=== PATIENT | female | born 1970 | race Caucasian/White ===

== ENCOUNTER 2017-07-28 10:19 | Inpatient (IN) ==
[2017-07-28 10:12] LABS: Basophils % 0.2 % (0.0-0.8); Eosinophils # 0.1 10*3/uL (0.0-0.87); Eosinophils % 1.4 % (0.00-10.9); Hematocrit 31.3 VOL% (35.7-47.0); Hemoglobin 10.8 GM/DL (12.0-16.0); Immature Granulocytes % 0.5 %; Immature Granulocytes Absolute 0.03 #; Lymphocytes # 1.8 10*3/uL (1.4-4.0); Lymphocytes % 26.4 % (21.3-54.2); Mean Corpuscular HGB Conc 34.5 GM/DL (32-36); Mean Corpuscular Hemoglobin 31 PG (27-34); Mean Corpuscular Volume 88.4 FL (87-102); Mean Platelet Volume 12.1 FL (9.6-12.0); Monocytes # 0.3 10*3/uL (0.11-0.8); Monocytes % 3.8 % (1.7-12.7); Neutrophils # 4.5 10*3/uL (1.4-7.4); Neutrophils % 67.7 % (38.7-73.9); Platelet Count 128 T/CUMM (130-400); Red Blood Count 3.54 MC/CUMM (3.8-5.5); Red Cell Distribution Width 13.5 % (9.3-17.3); White Blood Count 6.6 T/CUMM (4-12)
[~2017-07-28 10:19] MED LIST: ASPIRIN 325 MG TABLET PO ONE; DIAZEPAM 5 MG TABLET PO ONE; diphenhydrAMINE CAP 25 MG CAPSULE PO ONE
[2017-07-28 10:39] LABS: Calcium 9.3 MG/DL (8.5-10.1); Osmolality,Calculated 276.2 MOS/KG (273-304)
[2017-07-28] MEDS ORDERED: HEPARIN/NACL 0.9% 2 UNITS/ML 1,000 ML IV ONE ×2 (12:55→13:57)
[2017-07-28] MEDS ORDERED: LIDOCAINE 1% 20 ML VIAL ONE ×2 (12:55→13:57)
[2017-07-28] MEDS ORDERED: DIAZEPAM 5 MG TABLET ONE (13:01)
[2017-07-28] MEDS ORDERED: diphenhydrAMINE CAP 25 MG CAPSULE ONE (13:01)
[2017-07-28] MEDS ORDERED: ASPIRIN 325 MG TABLET ONE (13:02)
--- NOTE | 2017-07-28 13:12 | History and Physical Update ---
Sedation H&P Update - History and Physical H&P was reviewed, the patient examined and there: are no changes in the patients condition since last H&P was completed. - Dictation Physical: refer to H&P completed by admitting physician - Physical Exam Mental Status: alert and oriented Heart: regular rate and rhythm Lung: clear to auscultation Abdomen: within normal limits Vitals: within normal limits - Sedation Plan for Sedation: moderate Patient Consent: Procedure disscussed with patient and patinet has consented., Risks and benefits were discussed with patient,including infection,, bleeding, injury to surrounding structures, seizure, temporary nerve, Patient understands and accepts potential risks/benefits and agrees to, proceed. ASA Class: II Airway Assessment: Class II: Soft palate, uvula, fauces visible
[2017-07-28] MEDS ORDERED: HYDROmorphone 2 MG/1 ML VIAL ONE (13:59)
[2017-07-28] MEDS ORDERED: MIDAZOLAM 2 MG/2 ML VIAL ONE (13:59)
[2017-07-28] MEDS: NITROGLYCERIN DRIP 50 MG/250 ML BOTTLE IV SCH (14:32)
[2017-07-28] MEDS ORDERED: NITROGLYCERIN DRIP 50 MG/250 ML BOTTLE IV ONE (15:04)
[2017-07-28] MEDS: SODIUM CHLORIDE 0.45% 1,000 ML IV SCH ×2 (15:10→20:33)
--- NOTE | 2017-07-28 15:24 | Cardiac Catheterization ---
Date of Procedure:: 07/28/17 Pre-op Diagnosis: Chest pain severe CAD Post-op diagnosis: same Procedure: Cardiac cath position procedure note #1 left heart catheterization #2 selective coronary angiography #3 left ventriculography #4 vein graft angiography #5 GUARDADO angiography Omnipaque was used for procedure Description of procedure Following sterile preparation draping of the right groin, local anesthesia was achieved by infiltration 1% Xylocaine. Using a Cook needle the right femoral artery was cannulated and a #6 sheath was inserted. A 6 Tunisian pigtail catheter was advanced retrograde across the valve into the left ventricle and the end-diastolic pressure was recorded. Left ventriculography was performed in the BRAUN projection using 24 cc of contrast. A pullback was made across phytic valve. The pigtail catheter change for a 6 Tunisian left Batsheva catheter and the left main was cannulated carefully and angiography was performed in limited views. The catheter change for a 6 Tunisian right Amplatz catheter right coronary angiography was performed in the AZERBAIJANI projection only. The vein gas were then cannulated and vein graft angiography performed in BRAUN and AZERBAIJANI projections. Catheter change for a 6 Tunisian MIKEY catheter and GUARDADO angiography was performed in BRAUN and AZERBAIJANI projections. The catheter and sheath were then removed and hemostasis was achieved by direct compression with prompt cessation of bleeding and prompt return of normal for pulses. The patient was transferred to CCU in stable condition Hemodynamic data Aortic pressure 153/79 mean of 110 Left ventricle 153/35 Selective cholangiography The left main trunk has a 70% ostial stenosis. The pressure damps 40 mmHG with cannulation the LAD has a moderate 50-6 and stenosis and a 90% stenosis in the mid vessel after touchdown of the GUARADDO anastomosis. The circumflex has a long 70% stenosis in the mid segment after the small OM1 takeoff. The dominant coronary is occluded in the midsegment. The saphenous vein graft to PDA is widely patent. There is an 80% stenosis beyond the graft insertion site. The saphenous vein graft to diagonal is widely patent. The GUARDADO graft to LAD has a 99% distal stenosis at the anastomosis. There is diffuse distal LAD disease. Left ventriculography Ejection fraction 55%. No mild regurgitation. Conclusions Increased LVEDP 35 Ejection fraction 55% with no wall motion abnormalities No mitral regurgitation No aortic valve gradient Left main trunk-70% ostial stenosis LAD-50-60 % proximal stenosis and 90% stenosis in the mid segment after the touchdown of the GUARDADO graft Diagonal-occluded proximally Circumflex-long percent mid vessel stenosis after OM1 takeoff Dominant right coronary-100% mid occlusion SVG to PDAwidely patent with 80% stenosis beyond the graft insertion site SVG to diagonal-widely patent GUARDADO to LAD-99% stenosis at the distal anastomosis Disposition This unfortunate patient is a 47-year-old diabetic with severe disease progression. She is status post three-vessel CABG March 04, 2011 with a GUARDADO graft to LAD, vein graft to diagonal, vein graft OM branch. The GUARDADO graft has a 99% stenosis at the distal anastomosis and both vein grafts remain patent but there is significant disease progression beyond both graft insertion sites in addition there is severe ostial left main disease. Significant myocardium is at risk. Dr. Rolando Duarte has been consulted for redo CABG opinion. She remain on normal saline hydration and IV nitro and beta ignacio and Lovenox. Cine pictures were reviewed with her Shon Implants: No implants Anesthesia: moderate conscious sedation Surgeon / Physician: Kee Rider Estimated blood loss: minimal Specimens: none sent Condition: stable Disposition: ICU/CCU - Medications / Follow-up
[2017-07-28] MEDS ORDERED: GLUCAGON 1 MG VIAL IM PRN (15:29)
[2017-07-28] MEDS ORDERED: ONDANSETRON 4 MG/2 ML VIAL IV PRN (15:29)
[2017-07-28] MEDS ORDERED: NITROGLYCERIN SL 0.4 MG TABLET SL PRN (15:29)
[2017-07-28] MEDS ORDERED: DEXTROSE 50% 25 GM/50 ML SYRINGE IV PRN (15:29)
[2017-07-28] MEDS ORDERED: ZALEPLON 5 MG CAPSULE PO PRN (15:29)
--- NOTE | 2017-07-28 15:55 | Cardiology History & Physical ---
Ady Garcia Vanessa, RN, am scribing for, and in the presence of, Kee Rider MD 15:55. Assessment and Plan - Time spent with patient Time spent with patient: Greater than 30 minutes (Due to assessment, planning, documentation, and medication review) (1) CAD (coronary artery disease) Status: Chronic Current Visit: Yes (2) Hypertension Status: Chronic Current Visit: Yes (3) Dyslipidemia Status: Chronic Current Visit: Yes (4) Former tobacco use Status: Chronic Current Visit: Yes (5) Hx of CABG Status: Chronic Current Visit: Yes (6) Depression Status: Chronic Current Visit: Yes (7) Diabetes Status: Chronic Current Visit: Yes History of Present Illness History of present illness: Digital Associate: Dr. Riggs Ms. Rapp is a 47 year old white female is also with past medical history of hypertension, dyslipidemia, obesity, family history of premature CAD, previous personal history of CAD. She has been a diabetic for 25 years. She is a former smoker, and she quit smoking after her bypass surgery in 2009. Patient is status post coronary artery bypass grafting [address] Marin with MIKEY to LAD, SVG to PDA, and SVG to diagonal. Since then, she has required PCI of the left circumflex but most recent heart catheterization on April 08, 2014, showed widely patent circumflex stent previously placed, and the MIKEY to LAD was not injected as it was known to be very atretic and not contributory to ventricular myocardial flow. SVG to diagonal had a very small nikolski vessel stenosis at that time was not felt to be significant. Vein graft to the PDA was widely patent. She was seen earlier this morning by Dr. Riggs in clinic with exertion chest pain, was extremely anxious and hyperventilating, and was very concerned that she has ongoing coronary artery disease. Patient is now admitted for left heart catheterization and revascularization if able. Myocardial perfusion SPECT scan on July 17 suggestive of single-vessel disease , EF 70%. BP 124/59. Sinus rhythm per telemetry, heart rate 80. Lab data: WBC 6.6 hemoglobin 10.8 hematocrit 31.3 Sodium 134 potassium 5.0 chloride 100 CO2 27 BUN 13 creatinine 0.9 Glucose 254 Cardiology addendum Patient examined chart reviewed and discussed with nurse Yamileth Garsia. Status post three-vessel CABG March 04, [address] Melodie with GUARDADO graft to LAD, vein graft to diagonal, vein graft to PDA. Longtime type II diabetic Hyperlipidemia Former smoker, she quit following her bypass surgery in 2010 Obesity Family history CAD Recurrent chest pain and shortness of breath Impression Unstable angina, suspect disease progression. Plan Cardiac cath possible stent. Procedure, risk benefits discussed with patient and her Shon. All questions answered. She agrees proceed as outlined. Begin normal saline hydration. The patient will require aggressive lifestyle changes and risk factor modification. Home Medications Medication Instructions Recorded Confirmed Type Aspirin EC Tab 81 mg PO DAILY 04/30/15 07/28/17 History Clopidogrel Bisulfate [Plavix] 75 mg PO DAILY 04/30/15 07/28/17 History Glipizide [Glipizide ER] 2.5 mg PO DAILY 04/30/15 07/28/17 History Pregabalin [Lyrica] 75 mg PO TID 04/30/15 07/28/17 History Sertraline [Zoloft] 100 mg PO BID 04/30/15 07/28/17 History metFORMIN [Glucophage] 850 mg PO TID W/MEALS 04/30/15 07/28/17 History Insulin Glargine [Lantus] 60 units SUBCUT DAILY 07/28/17 07/28/17 History Losartan Potassium 12.5 mg PO DAILY 07/28/17 07/28/17 History Magnesium 250 mg PO DAILY 07/28/17 07/28/17 History Rosuvastatin [Crestor] 20 mg PO DAILY 07/28/17 07/28/17 History Allergies Allergy/AdvReac Type Severity Reaction Status Date / Time No Known Allergies Allergy Verified 07/28/17 10:11 - Constitutional Constitutional: Present: as per HPI - EENT Eyes: Present: as per HPI Ears: Present: as per HPI Nose, mouth and throat: Present: as per HPI - Cardiovascular Cardiovascular: Present: as per HPI - Respiratory Respiratory: Present: as per HPI - Gastrointestinal Gastrointestinal: Present: as per HPI - Genitourinary Genitourinary: Present: as per HPI - Musculoskeletal Musculoskeletal: Present: as per HPI - Neurological Neurological: Present: as per HPI - Psychiatric Psychiatric: Present: as per HPI - Endocrine Endocrine: Present: as per HPI - Hematologic/Lymphatic Hematologic/Lymphatic: Present: as per HPI Medical,Surgical,& Family Hx - Medical History Cardio: History of: CAD, [place] (approx > than 7 years ago), Cardiovascular Problems No history of: Aneurysm, Cardiac Dysrhythmia, Cerebrovascular Disease, Congenital Heart Disease, CHF, Hypertension, Pacemaker, PVD, Valvular Heart Disease Psychological: History of: Depression ("after open heart surgery" describes as "better") Neurology: History of: Peripheral Neuropathy HEENT: History of: Eye Problem ("bleeders", wears glasses) Endocrine: History of: Diabetes Mellitus (IDDM), Dyslipidemia No history of: Thyroid Disorder Rheumatology: No history of;: Fibromyalgia, Gout, Psoriasis, Sjogrens Renal: No history of: Renal Failure Genitourinary: No history of: Bladder Problem Gastrointestinal: History of: GI Problems (states "chronic loose stools") No history of: GERD, Gastrointestinal Bleed, Hepatitis Musculoskeletal: History of: Back/Neck Problems, Degenerative Disk Disease ( "lower back"), Herniated Disk (2-3 lower back"), Musculoskeletal Problems Hematology: No history of: Blood Transfusion Reaction Reproductive: History of: Reproductive Problems ("went throught mindi[ause at age 15") No history of: Abnormal Pap Smear Other: History of: Skin Problems ("skin cancer left chest" removed approx 1-2 months ago) No history of: Anesthesia Reactions, Anaphylaxis, Cancer, Eczema, HIV, Malignant Hyperthermia, MRSA - Surgical History Cardiac Surgeries: Sugical HX of: Cardiac Catheterization (1st one approx 2009, 2nd cath approx 2011 with stent placement x 2), Cardiac Surgery (3 vessel cabg in 2009) Patient Denies: Femoral-Popliteal Bypass Graft, Carotid Endarterectomy, Internal Defibrillator, Vascular Access Devices Thoracic Surgeries: Patient denies;: Organ Transplant, Lobectomy Neurologic Surgeries: Patient denies: Neurologic Surgery HEENT Surgeries: Patient denies: Carotid Endarterectomy, Eye Surgery, Tonsilectomy & Adenoidectomy Abdominal Surgeries: Surgical HX of: Colonoscopy (3-4 years ago), EGD (3-4 years ago) Patient denies: Gastric Bypass Surgery, Splenectomy Reproductive Surgeries: Patient denies;: Genitourinary Surgery, Gynecologic Surgery - Family History Family History: Reports;: Family Cancer (maternal grandmother), Family Diabetes (maternal grandmother), Family Heart Disease (father at age 45 of [place]), Family Hypertension (Father's side) Denies;: Family Psychiatric Problems, Family Stroke, Additional Family History - Social History Smoking Status: Never smoker Frequency of Alcohol Use: None Type of Drug Use: None Cardiology Physical Exam - Constitutional Vitals: Vital Signs Temp Pulse Resp BP Pulse Ox 97.4 F L 79 20 124/59 95 07/28/17 10:44 07/28/17 10:44 07/28/17 10:44 07/28/17 10:44 07/28/17 10:44 Intake and Output 07/27/17 07/28/17 07/28/17 22:59 06:59 14:59 Other: Weight 162 lb Patient Weight 07/29/17 06:59 Weight 162 lb General appearance: no acute distress, over weight - Head Head exam: Present: normal inspection. Absent: abrasion, contusion - Eye Eye exam: Present: EOMI Pupils: Present: AMY - ENT ENT exam: Present: normal exam - Neck Neck exam: Absent: tenderness - Respiratory Respiratory exam: Present: clear to auscultation bilaterally. Absent: rales, rhonchi, stridor, wheezes - Cardiovascular Cardiovascular exam: Present: regular rate and rhythm. Absent: carotid bruit, JVD, systolic murmur - GI/Abdominal GI/Abdominal exam: Present: normal bowel sounds, soft. Absent: ascites, firm, mass, tenderness - Extremities Exam Extremities exam: Present: normal inspection, normal capillary refill, full ROM. Absent: calf tenderness, edema - Back Exam Back exam: Present: normal inspection - Neurological Exam Neurological exam: Present: alert, oriented X3 - Psychiatric Psychiatric exam: Present: normal affect, normal mood. Absent: agitated, anxious - Skin Skin exam: Present: normal color, warm, dry, intact. Absent: cyanosis, diaphoretic, erythema, pallor Result/EKG - Labs CBC & BMP: 07/28/17 10:00 07/28/17 10:00 Lab Results: I have reviewed the past 24 hour labs Labs: Laboratory Results - last 24 hr 07/28/17 07/28/17 10:00 10:00 WBC 6.6 RBC 3.54 L Hgb 10.8 L Hct 31.3 L MCV 88.4 MCH 31 MCHC 34.5 RDW 13.5 Plt Count 128 L MPV 12.1 H Neut % (Auto) 67.7 Lymph % (Auto) 26.4 [place] % (Auto) 3.8 Eos % (Auto) 1.4 Baso % (Auto) 0.2 Neut # (Auto) 4.5 Lymph # (Auto) 1.8 [place] # (Auto) 0.3 Eos # (Auto) 0.1 Baso # (Auto) 0.0 Immature Gran % 0.5 Nucleated RBC % 0.0 Immature Gran # 0.03 Nucleated RBCs # 0.00 Immature Plt Fraction 0.0 Sodium 134 L Potassium 5.0 Chloride 100 Carbon Dioxide 27 Anion Gap 12.0 BUN 13 Creatinine 0.90 GFR Calculation 77 BUN/Creatinine Ratio 14.00 Glucose 254 H Calculated Osmolality 276.2 Calcium 9.3 - Diagnostic Findings Procedure: Chest x-ray: image reviewed by me, report reviewed by me - EKG EKG results: interpreted by me, no acute changes EKG shows: sinus rhythm Tereso Garcia Thomas, MD, personally performed the services described in this documentation, ascribed by Yamileth Gasria RN in my presence, and it is both accurate and complete [id number] .
[2017-07-28] MEDS ORDERED: CLORAZEPATE 7.5 MG TABLET PO PRN (16:08)
--- NOTE | 2017-07-28 16:19 | EKG Report ---
Stationary ECG Study [facility] Test Date: 07/28/2017 4:17:44 PM Pat Name: PORTIA LONDONO Department: Room: 110 Gender: F Reconditioner: : 1970 Requested by: Carmita Last Order Number: [id number] Reading MD: CLEMENCIA FAYE Intervals [place] Rate: 82 P: 36 [place]: 179 QRS: 63 QRSD: 89 T: 60 QT: 409 QTc: 448 Interpretive Statements SINUS RHYTM Electronically Signed On 07-29-17 16:40:13 CDT by CLEMENCIA FAYE [email or web address]
--- NOTE | 2017-07-28 16:50 | XRay Report ---
XR chest 1V Indication: Chest pain. Comparison: Chest x-ray 12/23/2015 Technique: Portable AP chest was performed. Findings: Heart size is normal. Prior sternotomy is demonstrated. Pulmonary vasculature appears within normal limits. No significant abnormality of the mediastinal contours demonstrated. Lungs are clear. Bones and soft tissues demonstrate no significant abnormalities. Impression: 1. No evidence of acute pathology. 07/28/2017 4:47 PM PROCEDURE INTERPRETED AT [facility] DEPARTMENT OF RADIOLOGY Final Report Signed by: Dr. Prasanna Tariq
--- NOTE | 2017-07-28 17:47 | Cardiothoracic Consult ---
Assessment and Plan - Time spent with patient Time spent with patient: Greater than 30 minutes (1) CAD (coronary artery disease) Status: Chronic Assessment and plan: Risk Model and Variables - STS Adult Cardiac Surgery Database Version 2.81 RISK SCORES About the STS Risk Calculator Procedure: CAB Only Risk of Mortality: 3.024% Morbidity or Mortality: 19.915% Long Length of Stay: 8.073% Short Length of Stay: 43.626% Permanent Stroke: 0.407% Prolonged Ventilation: 15.361% DSW Infection: 0.679% Renal Failure: 2.633% Reoperation: 8.525% 47-year-old female with recurrent severe coronary artery disease with occlusion of the GUARDADO LAD, left main disease, PDA disease, circumflex disease. Significant myocardium is at risk. Although her left ventricular function is preserved we are concerned that significant myocardium might be jeopardized with no intervention. I had a lengthy discussion with Dr. Rider, Dr. Salguero, and we all agree that the best course of action would be to proceed with redo CABG. We have discussed the option of high risk PCI as well. With the young age of this patient, the fact that she had stenting before would sway us more towards bypass. I presented both options to the patient Family and they clearly elected preferred redo CABG. I discussed the timing with Dr. Rider and is concerned that due to the severe left main disease she would need to be done as soon as possible. I will proceed with the surgery on Thursday. I would like to obtain a CT scan on to evaluate the location of the GUARDADO in relation to the midline. Meanwhile the patient will stay in the ICU with anticoagulation on board. Risks benefits and alternatives were explained to the patient and the family including the higher risk than average due to the redo status and the understand and they are willing to proceed with surgery. Current Visit: Yes (2) Hx of CABG Status: Chronic Current Visit: Yes History of Present Illness - Data of Consult Patient: new to practice Consult date: 07/28/17 - Consult Narrative Reason for consult: Severe recurrent coronary artery disease History of present illness: Ms. Rapp is a 47 year old female with very complex medical and surgical history including a CABG that was done 7 years ago and percutaneous interventions with stenting multiple times last 2013 for the circumflex artery comes back with chest pain on exertion. The patient came from Dr. Salguero' s clinic to have a cath by Dr. Rider which showed severe left main coronary artery disease, atretic almost 99% occluded GUARDADO to LAD bypass, severe stenosis of circumflex artery, stenosis of the PDA. The patient was admitted to the intensive care unit and I was consulted for evaluation for a redo CABG. CC: Corina Riggs, DO - Home Medications and Allergies Home Medications: Home Medications Medication Instructions Recorded Confirmed Type Aspirin EC Tab 81 mg PO DAILY 04/30/15 07/28/17 History Clopidogrel Bisulfate [Plavix] 75 mg PO DAILY 04/30/15 07/28/17 History Glipizide [Glipizide ER] 2.5 mg PO DAILY 04/30/15 07/28/17 History Pregabalin [Lyrica] 75 mg PO TID 04/30/15 07/28/17 History Sertraline [Zoloft] 100 mg PO BID 04/30/15 07/28/17 History metFORMIN [Glucophage] 850 mg PO TID W/MEALS 04/30/15 07/28/17 History Insulin Glargine [Lantus] 60 units SUBCUT DAILY 07/28/17 07/28/17 History Losartan Potassium 12.5 mg PO DAILY 07/28/17 07/28/17 History Magnesium 250 mg PO DAILY 07/28/17 07/28/17 History Rosuvastatin [Crestor] 20 mg PO DAILY 07/28/17 07/28/17 History Allergies/Adverse Reactions: Allergies Allergy/AdvReac Type Severity Reaction Status Date / Time No Known Allergies Allergy Verified 07/28/17 10:11 12 point system: reviewed and no additional remarkable complaints except as stated (HPI) Medical,Surgical,& Family Hx - Medical History Cardio: History of: CAD, [place] (approx > than 7 years ago), Cardiovascular Problems No history of: Aneurysm, Cardiac Dysrhythmia, Cerebrovascular Disease, Congenital Heart Disease, CHF, Hypertension, Pacemaker, PVD, Valvular Heart Disease Psychological: History of: Depression ("after open heart surgery" describes as "better") Neurology: History of: Peripheral Neuropathy HEENT: History of: Eye Problem ("bleeders", wears glasses) Endocrine: History of: Diabetes Mellitus (IDDM), Dyslipidemia No history of: Thyroid Disorder Rheumatology: No history of;: Fibromyalgia, Gout, Psoriasis, Sjogrens Renal: No history of: Renal Failure Genitourinary: No history of: Bladder Problem Gastrointestinal: History of: GI Problems (states "chronic loose stools") No history of: GERD, Gastrointestinal Bleed, Hepatitis Musculoskeletal: History of: Back/Neck Problems, Degenerative Disk Disease ( "lower back"), Herniated Disk (2-3 lower back"), Musculoskeletal Problems Hematology: No history of: Blood Transfusion Reaction Reproductive: History of: Reproductive Problems ("went throught mindi[ause at age 15") No history of: Abnormal Pap Smear Other: History of: Skin Problems ("skin cancer left chest" removed approx 1-2 months ago) No history of: Anesthesia Reactions, Anaphylaxis, Cancer, Eczema, HIV, Malignant Hyperthermia, MRSA - Surgical History Cardiac Surgeries: Sugical HX of: Cardiac Catheterization (1st one approx 2009, 2nd cath approx 2011 with stent placement x 2), Cardiac Surgery (3 vessel cabg in 2009) Patient Denies: Femoral-Popliteal Bypass Graft, Carotid Endarterectomy, Internal Defibrillator, Vascular Access Devices Thoracic Surgeries: Patient denies;: Organ Transplant, Lobectomy Neurologic Surgeries: Patient denies: Neurologic Surgery HEENT Surgeries: Patient denies: Carotid Endarterectomy, Eye Surgery, Tonsilectomy & Adenoidectomy Abdominal Surgeries: Surgical HX of: Colonoscopy (3-4 years ago), EGD (3-4 years ago) Patient denies: Gastric Bypass Surgery, Splenectomy Reproductive Surgeries: Patient denies;: Genitourinary Surgery, Gynecologic Surgery - Family History Family History: Reports;: Family Cancer (maternal grandmother), Family Diabetes (maternal grandmother), Family Heart Disease (father at age 45 of [place]), Family Hypertension (Father's side) Denies;: Family Psychiatric Problems, Family Stroke, Additional Family History - Social History Smoking Status: Never smoker Frequency of Alcohol Use: None Type of Drug Use: None Physical Examination Vital Signs Temp Pulse Resp BP Pulse Ox 97.4 F L 79 20 124/59 95 07/28/17 10:44 07/28/17 10:44 07/28/17 10:44 07/28/17 10:44 07/28/17 10:44 General: Present: Appears Well HEENT: Present: PERRL Neck: Present: Supple Neck Cardiac: Present: Reg Rate and Rhythm Lungs: Present: Normal Exam Neuro: Present: Cranial Nerve 2-12 Intact Abdomen: Present: Soft, Active Bowel Sounds Result/EKG - Labs CBC & BMP: 07/28/17 10:00 07/28/17 10:00 Labs: Laboratory Results - last 24 hr 07/28/17 07/28/17 07/28/17 10:00 10:00 17:07 WBC 6.6 RBC 3.54 L Hgb 10.8 L Hct 31.3 L MCV 88.4 MCH 31 MCHC 34.5 RDW 13.5 Plt Count 128 L MPV 12.1 H Neut % (Auto) 67.7 Lymph % (Auto) 26.4 [place] % (Auto) 3.8 Eos % (Auto) 1.4 Baso % (Auto) 0.2 Neut # (Auto) 4.5 Lymph # (Auto) 1.8 [place] # (Auto) 0.3 Eos # (Auto) 0.1 Baso # (Auto) 0.0 Immature Gran % 0.5 Nucleated RBC % 0.0 Immature Gran # 0.03 Nucleated RBCs # 0.00 Immature Plt Fraction 0.0 Sodium 134 L Potassium 5.0 Chloride 100 Carbon Dioxide 27 Anion Gap 12.0 BUN 13 Creatinine 0.90 GFR Calculation 77 BUN/Creatinine Ratio 14.00 Glucose 254 H POC Glucose 130 H Calculated Osmolality 276.2 Calcium 9.3
[2017-07-28] MEDS: SODIUM CHLORIDE 0.9% 1,000 ML IV SCH (18:34)
[2017-07-28 20:32] LABS: PT Patient Result 11.1 SECS; Partial Thromboplastin Time 28.3 SECS (0-40)
[2017-07-28] MEDS ORDERED: HEPARIN 5,000 UNIT/1 ML VIAL IV ONE (21:00)
[2017-07-28] MEDS: SERTRALINE 100 MG TABLET PO SCH (21:22)
[2017-07-28] MEDS: PREGABALIN 75 MG CAPSULE PO SCH (21:22)
[2017-07-28] MEDS: ACETAMINOPHEN 325 MG TABLET PO PRN (21:23)
[2017-07-28] MEDS: INSULIN REGULAR 100 UNIT/ML SUBCUT SCH (21:24)
[2017-07-28] MEDS: HEPARIN DRIP 25,000 UNITS/500 ML PREMIX IV SCH (21:24)
[2017-07-28] MEDS: CHLORHEXIDINE 0.12% ORAL RINSE 60 ML BOTTLE SWISH/SPIT SCH (21:58)
[2017-07-28] MEDS: CHLORHEXIDINE 4% SOLN 118 ML BOTTLE TOP SCH (22:02)
[2017-07-29 01:45] LABS: Basophils % 0.2 % (0.0-0.8); Eosinophils # 0.1 10*3/uL (0.0-0.87); Eosinophils % 1.3 % (0.00-10.9); Hematocrit 29.8 VOL% (35.7-47.0); Hemoglobin 10.1 GM/DL (12.0-16.0); Immature Granulocytes % 0.8 %; Immature Granulocytes Absolute 0.05 #; Lymphocytes # 1.7 10*3/uL (1.4-4.0); Lymphocytes % 26.2 % (21.3-54.2); Mean Corpuscular HGB Conc 33.9 GM/DL (32-36); Mean Corpuscular Hemoglobin 30 PG (27-34); Mean Platelet Volume 12.3 FL (9.6-12.0); Monocytes # 0.2 10*3/uL (0.11-0.8); Monocytes % 3.7 % (1.7-12.7); Neutrophils # 4.3 10*3/uL (1.4-7.4); Neutrophils % 67.8 % (38.7-73.9); Platelet Count 117 T/CUMM (130-400); Red Blood Count 3.35 MC/CUMM (3.8-5.5); Red Cell Distribution Width 13.6 % (9.3-17.3); White Blood Count 6.3 T/CUMM (4-12)
[2017-07-29] MEDS: SODIUM CHLORIDE 0.45% 1,000 ML IV SCH ×5 (01:47→21:49)
[2017-07-29 02:51] LABS: Calcium 8.3 MG/DL (8.5-10.1); Magnesium 1.6 MG/DL (1.8-2.4); Potassium 4.4 MMOL/L (3.5-5.1)
[2017-07-29 03:12] LABS: Potassium 4.4 MMOL/L (3.5-5.1); Risk Ratio 3.42; VLDL CHOLESTEROL 49.4 MG/DL
[2017-07-29] MEDS: INSULIN REGULAR 100 UNIT/ML SUBCUT SCH ×5 (07:58→20:20)
[2017-07-29] MEDS: CHLORHEXIDINE 4% SOLN 118 ML BOTTLE TOP SCH ×2 (08:30→14:15)
[2017-07-29] MEDS: INSULIN GLARGINE 100 UNIT/ML SUBCUT SCH (08:30)
[2017-07-29] MEDS: ASPIRIN EC 81 MG TABLET PO SCH (08:31)
[2017-07-29] MEDS: SERTRALINE 100 MG TABLET PO SCH ×2 (08:31→20:09)
[2017-07-29] MEDS: LOSARTAN 25 MG TABLET PO SCH (08:31)
[2017-07-29] MEDS: MAGNESIUM GLUCONATE 500 MG TABLET PO SCH (08:31)
[2017-07-29] MEDS: ROSUVASTATIN 20 MG TABLET PO SCH (08:31)
[2017-07-29] MEDS: PREGABALIN 75 MG CAPSULE PO SCH ×3 (08:31→20:09)
[2017-07-29] MEDS: CHLORHEXIDINE 0.12% ORAL RINSE 60 ML BOTTLE SWISH/SPIT SCH ×2 (08:35→20:09)
[2017-07-29] MEDS: ACETAMINOPHEN 325 MG TABLET PO PRN ×2 (09:16→20:09)
[2017-07-29] MEDS ORDERED: HEPARIN 5,000 UNIT/1 ML VIAL ONE (10:34)
[2017-07-29] MEDS ORDERED: HEPARIN 5,000 UNIT/1 ML VIAL IV ONE (10:40)
[2017-07-29] MEDS ORDERED: HEPARIN 5,000 UNIT/1 ML VIAL IV PRN (10:40)
[2017-07-29] MEDS: NITROGLYCERIN DRIP 50 MG/250 ML BOTTLE IV SCH (13:35)
--- NOTE | 2017-07-29 15:06 | Cardiology Progress Note ---
Ady Garcia Vanessa RN, am scribing for, and in the presence of, Kee Rider MD 15:06. Assessment and Plan - Time spent with patient Time spent with patient: Greater than 30 minutes (1) CAD (coronary artery disease) Status: Chronic Current Visit: Yes (2) Hypertension Status: Chronic Current Visit: Yes (3) Dyslipidemia Status: Chronic Current Visit: Yes (4) Former tobacco use Status: Chronic Current Visit: Yes (5) Hx of CABG Status: Chronic Current Visit: Yes (6) Depression Status: Chronic Current Visit: Yes (7) Diabetes Status: Chronic Current Visit: Yes Cardiology - PN: Subj Interval history: Rate Clerk Passenger: Dr. Riggs Ms. Rapp, 47-year-old WF, with PMHx hypertension, dyslipidemia, obesity, family history of premature CAD, personal history of CAD. She has been a diabetic for over 25 years. She is a former smoker and quit after bypass surgery in 2010. Status post CABG [address] Sewell with GUARDADO to LAD, SVG to PDA, and SVG to diagonal. She has required PCI of the left circumflex since then but most recent heart catheterization on April 08, 2014, showed widely patent circumflex stent. MIKEY to LAD was not injected as it was previously known to be atretic and not contributory to myocardial flow, SVG to diagonal with minor iqugmiut vessel stenosis not significant at the time, SVG to PDA widely patent. She is now admitted to [facility] after presenting [facility] with exertional chest pain, extreme anxiety, and hyperventilation. Left heart catheterization on July 28, per Dr. Rider, demonstrated GUARDADO graft with 99% stenosis at distal anastomosis, both vein grafts patent but significant disease progression beyond both graft insertion sites, severe ostial left main disease, preserved EF 55% but significant myocardium at risk. Dr. Alvarenga consult for redo CABG. Patient is being monitored closely in ICU. Mrs. Rapp has been evaluated by Dr. Alvarenga for redo CABG, and case has been discussed with Dr. Riggs also. It has been decided that patient will undergo surgery on Thursday, July 31, versus high risk PCI. Will remain in the ICU for close observation. Denies chest pain this morning but says she is having some indigestion after drinking orange juice. No dyspnea. Right femoral artery cath site without hematoma or bruit. IV nitroglycerin 10 mcg/ min. Anticoagulated with IV heparin. BP 124/68. Sinus rhythm per cardiac monitoring no disturbance. Lab data today: WBC 6.3 hemoglobin 10.1 hematocrit 29.8 Sodium 136 potassium 4.4 chloride 102 CO2 27 Prothrombin time 37.1 BUN 13 creatinine 0.8 Magnesium 1.6 Glucose 181 Triglycerides 247 total cholesterol 123 HDL 36 LDL 51 Cardiology addendum Patient examined chart review discussed with nurse Sonia Aguero RN. No pain. Telemetry shows steady sinus rhythm in the 70s O2 sat 97 on 2 L cannula Regular rhythm no murmur or gallop Chest is clear Right groin soft and dry. No bruit or hematoma. Distal pulses 1+ Plan Heparin drip IV nitro Beta-ignacio Redo CABG Thursday Exam (Progress Note) - Constitutional Vitals: Period Temp Pulse Resp BP Sys/Haas Pulse Ox Last 24 Hr 96.7 F-98.1 F 79-86 13-22 96-155/35-99 91-99 Exam: General appearance: no acute distress, over weight - Head Head exam: Present: normal inspection. Absent: abrasion, contusion - Eye Eye exam: Present: EOMI Pupils: Present: AMY - ENT ENT exam: Present: normal exam - Neck Neck exam: Absent: tenderness. - Respiratory Respiratory exam: Present: clear to auscultation bilaterally. Absent: rales, rhonchi, stridor, wheezes - Cardiovascular Cardiovascular exam: Present: regular rate and rhythm. Absent: carotid bruit, JVD, systolic murmur - GI/Abdominal GI/Abdominal exam: Present: normal bowel sounds, soft. Absent: ascites, firm, mass, tenderness - Extremities Exam Extremities exam: Present: normal inspection, normal capillary refill, full ROM. Absent: calf tenderness, edema. Other: Right groin cath site with minimal bruise, no hematoma or bruit. Distal pulses present and palpable bilaterally. - Back Exam Back exam: Present: normal inspection - Neurological Exam Neurological exam: Present: alert, oriented X3 - Psychiatric Psychiatric exam: Present: normal affect, normal mood. Absent: agitated, anxious - Skin Skin exam: Present: normal color, warm, dry, intact. Absent: cyanosis, diaphoretic, erythema, pallor Result/EKG - Labs CBC & BMP: 07/29/17 01:23 07/29/17 01:23 Lab Results: I have reviewed the past 24 hour labs Labs: Laboratory Results - last 24 hr 07/28/17 07/28/17 07/28/17 10:00 10:00 17:07 WBC 6.6 RBC 3.54 L Hgb 10.8 L Hct 31.3 L MCV 88.4 MCH 31 MCHC 34.5 RDW 13.5 Plt Count 128 L MPV 12.1 H Neut % (Auto) 67.7 Lymph % (Auto) 26.4 [place] % (Auto) 3.8 Eos % (Auto) 1.4 Baso % (Auto) 0.2 Neut # (Auto) 4.5 Lymph # (Auto) 1.8 [place] # (Auto) 0.3 Eos # (Auto) 0.1 Baso # (Auto) 0.0 Immature Gran % 0.5 Nucleated RBC % 0.0 Immature Gran # 0.03 Nucleated RBCs # 0.00 Immature Plt Fraction 0.0 INR PT Patient/Control Mix Circ Anticoag PTT Sodium 134 L Potassium 5.0 Chloride 100 Carbon Dioxide 27 Anion Gap 12.0 BUN 13 Creatinine 0.90 GFR Calculation 77 BUN/Creatinine Ratio 14.00 Glucose 254 H POC Glucose 130 H Calculated Osmolality 276.2 Calcium 9.3 Magnesium Triglycerides Cholesterol LDL Cholesterol VLDL Cholesterol HDL Cholesterol Heart Disease Risk Ratio 07/28/17 07/28/17 07/28/17 19:57 20:50 22:29 WBC RBC Hgb Hct MCV MCH MCHC RDW Plt Count MPV Neut % (Auto) Lymph % (Auto) [place] % (Auto) Eos % (Auto) Baso % (Auto) Neut # (Auto) Lymph # (Auto) [place] # (Auto) Eos # (Auto) Baso # (Auto) Immature Gran % Nucleated RBC % Immature Gran # Nucleated RBCs # Immature Plt Fraction INR 1.0 PT Patient/Control Mix 11.1 Circ Anticoag PTT 28.3 37.3 D Sodium Potassium Chloride Carbon Dioxide Anion Gap BUN Creatinine GFR Calculation BUN/Creatinine Ratio Glucose POC Glucose 172 H Calculated Osmolality Calcium Magnesium Triglycerides Cholesterol LDL Cholesterol VLDL Cholesterol HDL Cholesterol Heart Disease Risk Ratio 07/29/17 07/29/17 07/29/17 01:23 01:23 01:23 WBC 6.3 RBC 3.35 L Hgb 10.1 L Hct 29.8 L MCV 89.0 MCH 30 MCHC 33.9 RDW 13.6 Plt Count 117 L MPV 12.3 H Neut % (Auto) 67.8 Lymph % (Auto) 26.2 [place] % (Auto) 3.7 Eos % (Auto) 1.3 Baso % (Auto) 0.2 Neut # (Auto) 4.3 Lymph # (Auto) 1.7 [place] # (Auto) 0.2 Eos # (Auto) 0.1 Baso # (Auto) 0.0 Immature Gran % 0.8 Nucleated RBC % 0.0 Immature Gran # 0.05 Nucleated RBCs # 0.00 Immature Plt Fraction 0.0 INR PT Patient/Control Mix Circ Anticoag PTT Sodium 136 136 Potassium 4.4 4.4 Chloride 102 102 Carbon Dioxide 27 27 Anion Gap 11.4 11.4 BUN 13 13 Creatinine 0.80 0.80 GFR Calculation 91 91 BUN/Creatinine Ratio 16.00 16.00 Glucose 180 H 181 H POC Glucose Calculated Osmolality 276.0 276.0 Calcium 8.3 L 8.0 L Magnesium 1.6 L Triglycerides 247 H Cholesterol 123 LDL Cholesterol 51.0 VLDL Cholesterol 49.4 HDL Cholesterol 36 L Heart Disease Risk Ratio 3.42 07/29/17 07/29/17 07/29/17 01:23 04:25 07:52 WBC RBC Hgb Hct MCV MCH MCHC RDW Plt Count MPV Neut % (Auto) Lymph % (Auto) [place] % (Auto) Eos % (Auto) Baso % (Auto) Neut # (Auto) Lymph # (Auto) [place] # (Auto) Eos # (Auto) Baso # (Auto) Immature Gran % Nucleated RBC % Immature Gran # Nucleated RBCs # Immature Plt Fraction INR PT Patient/Control Mix Circ Anticoag PTT 33.4 34.8 Sodium Potassium Chloride Carbon Dioxide Anion Gap BUN Creatinine GFR Calculation BUN/Creatinine Ratio Glucose POC Glucose 245 H Calculated Osmolality Calcium Magnesium Triglycerides Cholesterol LDL Cholesterol VLDL Cholesterol HDL Cholesterol Heart Disease Risk Ratio - EKG EKG results: interpreted by me, no acute changes EKG shows: sinus rhythm Tereso Garcia Thomas, MD, personally performed the services described in this documentation, ascribed by Yamileth Garsia RN in my presence, and it is both accurate and complete .
[2017-07-29] MEDS: SODIUM CHLORIDE 0.9% 1,000 ML IV SCH (17:07)
--- NOTE | 2017-07-29 17:44 | Cardiothoracic Progress Note ---
Assessment and Plan (1) CAD (coronary artery disease) Status: Chronic Assessment and plan: 47-year-old female 7 years status post CABG, with intervening PCI comes back with severe multivessel coronary artery disease. The patient needs a redo CABG. I will proceed with redo CABG on Thursday. The patient currently has no symptoms. Of note the patient was on Plavix and the last dose was on Thursday morning. Continue anticoagulation as planned. I will obtain CT of the chest tomorrow morning. Current Visit: Yes (2) Hx of CABG Status: Chronic Current Visit: Yes Exam (Progress Note) - Constitutional Vitals: Period Temp Pulse Resp BP Sys/Haas Pulse Ox Last 24 Hr 97.4 F-98.1 F 76-96 16-24 92-155/35-99 89-98 Result/EKG - Labs CBC & BMP: 07/29/17 01:23 07/29/17 01:23 Labs: Laboratory Results - last 24 hr 07/28/17 07/28/17 07/28/17 19:57 20:50 22:29 WBC RBC Hgb Hct MCV MCH MCHC RDW Plt Count MPV Neut % (Auto) Lymph % (Auto) [place] % (Auto) Eos % (Auto) Baso % (Auto) Neut # (Auto) Lymph # (Auto) [place] # (Auto) Eos # (Auto) Baso # (Auto) Immature Gran % Nucleated RBC % Immature Gran # Nucleated RBCs # Immature Plt Fraction INR 1.0 PT Patient/Control Mix 11.1 Circ Anticoag PTT 28.3 37.3 D Sodium Potassium Chloride Carbon Dioxide Anion Gap BUN Creatinine GFR Calculation BUN/Creatinine Ratio Glucose POC Glucose 172 H Calculated Osmolality Calcium Magnesium Triglycerides Cholesterol LDL Cholesterol VLDL Cholesterol HDL Cholesterol Heart Disease Risk Ratio 07/29/17 07/29/17 07/29/17 01:23 01:23 01:23 WBC 6.3 RBC 3.35 L Hgb 10.1 L Hct 29.8 L MCV 89.0 MCH 30 MCHC 33.9 RDW 13.6 Plt Count 117 L MPV 12.3 H Neut % (Auto) 67.8 Lymph % (Auto) 26.2 [place] % (Auto) 3.7 Eos % (Auto) 1.3 Baso % (Auto) 0.2 Neut # (Auto) 4.3 Lymph # (Auto) 1.7 [place] # (Auto) 0.2 Eos # (Auto) 0.1 Baso # (Auto) 0.0 Immature Gran % 0.8 Nucleated RBC % 0.0 Immature Gran # 0.05 Nucleated RBCs # 0.00 Immature Plt Fraction 0.0 INR PT Patient/Control Mix Circ Anticoag PTT Sodium 136 136 Potassium 4.4 4.4 Chloride 102 102 Carbon Dioxide 27 27 Anion Gap 11.4 11.4 BUN 13 13 Creatinine 0.80 0.80 GFR Calculation 91 91 BUN/Creatinine Ratio 16.00 16.00 Glucose 180 H 181 H POC Glucose Calculated Osmolality 276.0 276.0 Calcium 8.3 L 8.0 L Magnesium 1.6 L Triglycerides 247 H Cholesterol 123 LDL Cholesterol 51.0 VLDL Cholesterol 49.4 HDL Cholesterol 36 L Heart Disease Risk Ratio 3.42 07/29/17 07/29/17 07/29/17 01:23 04:25 07:52 WBC RBC Hgb Hct MCV MCH MCHC RDW Plt Count MPV Neut % (Auto) Lymph % (Auto) [place] % (Auto) Eos % (Auto) Baso % (Auto) Neut # (Auto) Lymph # (Auto) [place] # (Auto) Eos # (Auto) Baso # (Auto) Immature Gran % Nucleated RBC % Immature Gran # Nucleated RBCs # Immature Plt Fraction INR PT Patient/Control Mix Circ Anticoag PTT 33.4 34.8 Sodium Potassium Chloride Carbon Dioxide Anion Gap BUN Creatinine GFR Calculation BUN/Creatinine Ratio Glucose POC Glucose 245 H Calculated Osmolality Calcium Magnesium Triglycerides Cholesterol LDL Cholesterol VLDL Cholesterol HDL Cholesterol Heart Disease Risk Ratio 07/29/17 07/29/17 07/29/17 09:17 11:58 13:03 WBC RBC Hgb Hct MCV MCH MCHC RDW Plt Count MPV Neut % (Auto) Lymph % (Auto) [place] % (Auto) Eos % (Auto) Baso % (Auto) Neut # (Auto) Lymph # (Auto) [place] # (Auto) Eos # (Auto) Baso # (Auto) Immature Gran % Nucleated RBC % Immature Gran # Nucleated RBCs # Immature Plt Fraction INR PT Patient/Control Mix Circ Anticoag PTT 37.1 67.2 H D Sodium Potassium Chloride Carbon Dioxide Anion Gap BUN Creatinine GFR Calculation BUN/Creatinine Ratio Glucose POC Glucose 258 H Calculated Osmolality Calcium Magnesium Triglycerides Cholesterol LDL Cholesterol VLDL Cholesterol HDL Cholesterol Heart Disease Risk Ratio 07/29/17 15:47 WBC RBC Hgb Hct MCV MCH MCHC RDW Plt Count MPV Neut % (Auto) Lymph % (Auto) [place] % (Auto) Eos % (Auto) Baso % (Auto) Neut # (Auto) Lymph # (Auto) [place] # (Auto) Eos # (Auto) Baso # (Auto) Immature Gran % Nucleated RBC % Immature Gran # Nucleated RBCs # Immature Plt Fraction INR PT Patient/Control Mix Circ Anticoag PTT Sodium Potassium Chloride Carbon Dioxide Anion Gap BUN Creatinine GFR Calculation BUN/Creatinine Ratio Glucose POC Glucose 300 H Calculated Osmolality Calcium Magnesium Triglycerides Cholesterol LDL Cholesterol VLDL Cholesterol HDL Cholesterol Heart Disease Risk Ratio
[2017-07-29] MEDS: HEPARIN DRIP 25,000 UNITS/500 ML PREMIX IV SCH (21:50)
[2017-07-30 06:03] LABS: Basophils % 0.2 % (0.0-0.8); Eosinophils # 0.1 10*3/uL (0.0-0.87); Eosinophils % 1.5 % (0.00-10.9); Hematocrit 29.8 VOL% (35.7-47.0); Hemoglobin 9.9 GM/DL (12.0-16.0); Immature Granulocytes % 0.6 %; Immature Granulocytes Absolute 0.03 #; Lymphocytes # 1.5 10*3/uL (1.4-4.0); Lymphocytes % 27.5 % (21.3-54.2); Mean Corpuscular HGB Conc 33.2 GM/DL (32-36); Mean Corpuscular Hemoglobin 30 PG (27-34); Mean Corpuscular Volume 90.3 FL (87-102); Mean Platelet Volume 12.6 FL (9.6-12.0); Monocytes # 0.2 10*3/uL (0.11-0.8); Monocytes % 4.3 % (1.7-12.7); Neutrophils # 3.5 10*3/uL (1.4-7.4); Neutrophils % 65.9 % (38.7-73.9); Platelet Count 119 T/CUMM (130-400); Red Cell Distribution Width 13.6 % (9.3-17.3); White Blood Count 5.3 T/CUMM (4-12)
[2017-07-30 06:23] LABS: PT Patient Result 10.9 SECS
[2017-07-30 06:32] LABS: Partial Thromboplastin Time 42.8 SECS (0-40)
[2017-07-30 06:34] LABS: Calcium 8.6 MG/DL (8.5-10.1); Magnesium 1.7 MG/DL (1.8-2.4); Osmolality,Calculated 279.5 MOS/KG (273-304); Potassium 4.1 MMOL/L (3.5-5.1)
--- NOTE | 2017-07-30 07:15 | Cardiology Progress Note ---
Assessment and Plan (1) CAD (coronary artery disease) Status: Chronic Current Visit: Yes (2) Hypertension Status: Chronic Current Visit: Yes (3) Dyslipidemia Status: Chronic Current Visit: Yes (4) Former tobacco use Status: Chronic Current Visit: Yes (5) Hx of CABG Status: Chronic Current Visit: Yes (6) Depression Status: Chronic Current Visit: Yes (7) Diabetes Status: Chronic Current Visit: Yes Cardiology - PN: Subj Interval history: Cardiology note 47-year-old diabetic with unstable angina. Comfortable on IV nitro and heparin. Telemetry shows sinus rhythm in the 70s O2 sat 96 on room air Blood pressure 130/70 Regular rhythm no gallop Clear lungs Abdomen benign Right groin soft and dry. No bruit or hematoma. Distal pulses 2+. Lab data today White count 5.3 hemoglobin 9.9 hematocrit 29.8 Sodium 139 potassium 4.1 chloride 104 CO2 25 BUN 12 creatinine 0.7 Glucose 151 PTT 42.8 Impression status post three-vessel CABG February 2011 with GUARDDAO graft to LAD, vein graft to PDA and vein graft to diagonal. Cardiac cath July 28 showed severe ostial left main stenosis with severe disease at the distal limb anastomosis and marked progression of disease in the mid circumflex and PDA beyond the graft insertion site. EF 55%. Significant myocardium at risk. Longtime diabetic Hypertension Obesity Tobacco abuse in remission Hyperlipidemia Plan CTA coronary to evaluate GUARDADO position IV heparin, increase drip per protocol IV nitro Redo CABG a.m. Shon not present at this Exam (Progress Note) - Constitutional Vitals: Period Temp Pulse Resp BP Sys/Haas Pulse Ox Last 24 Hr 97.4 F-98.1 F 73-109 16-29 87-155/49-82 89-97 Result/EKG - Labs CBC & BMP: 07/30/17 04:25 07/30/17 04:25 Labs: Laboratory Results - last 24 hr 07/29/17 07/29/17 07/29/17 07:52 09:17 11:58 WBC RBC Hgb Hct MCV MCH MCHC RDW Plt Count MPV Neut % (Auto) Lymph % (Auto) [place] % (Auto) Eos % (Auto) Baso % (Auto) Neut # (Auto) Lymph # (Auto) [place] # (Auto) Eos # (Auto) Baso # (Auto) Immature Gran % Nucleated RBC % Immature Gran # Nucleated RBCs # Immature Plt Fraction INR PT Patient/Control Mix Circ Anticoag PTT 37.1 Sodium Potassium Chloride Carbon Dioxide Anion Gap BUN Creatinine GFR Calculation BUN/Creatinine Ratio Glucose POC Glucose 245 H 258 H Calculated Osmolality Calcium Magnesium Blood Type Antibody Screen 07/29/17 07/29/17 07/29/17 13:03 15:47 16:54 WBC RBC Hgb Hct MCV MCH MCHC RDW Plt Count MPV Neut % (Auto) Lymph % (Auto) [place] % (Auto) Eos % (Auto) Baso % (Auto) Neut # (Auto) Lymph # (Auto) [place] # (Auto) Eos # (Auto) Baso # (Auto) Immature Gran % Nucleated RBC % Immature Gran # Nucleated RBCs # Immature Plt Fraction INR PT Patient/Control Mix Circ Anticoag PTT 67.2 H D Sodium Potassium Chloride Carbon Dioxide Anion Gap BUN Creatinine GFR Calculation BUN/Creatinine Ratio Glucose POC Glucose 300 H Calculated Osmolality Calcium Magnesium Blood Type O POSITIVE Antibody Screen Negative 07/29/17 07/29/17 07/29/17 16:54 20:10 21:00 WBC RBC Hgb Hct MCV MCH MCHC RDW Plt Count MPV Neut % (Auto) Lymph % (Auto) [place] % (Auto) Eos % (Auto) Baso % (Auto) Neut # (Auto) Lymph # (Auto) [place] # (Auto) Eos # (Auto) Baso # (Auto) Immature Gran % Nucleated RBC % Immature Gran # Nucleated RBCs # Immature Plt Fraction INR PT Patient/Control Mix Circ Anticoag PTT 40.6 H 39.7 Sodium Potassium Chloride Carbon Dioxide Anion Gap BUN Creatinine GFR Calculation BUN/Creatinine Ratio Glucose POC Glucose 296 H Calculated Osmolality Calcium Magnesium Blood Type Antibody Screen 07/30/17 07/30/17 07/30/17 04:25 04:25 04:25 WBC 5.3 RBC 3.30 L Hgb 9.9 L Hct 29.8 L MCV 90.3 MCH 30 MCHC 33.2 RDW 13.6 Plt Count 119 L MPV 12.6 H Neut % (Auto) 65.9 Lymph % (Auto) 27.5 [place] % (Auto) 4.3 Eos % (Auto) 1.5 Baso % (Auto) 0.2 Neut # (Auto) 3.5 Lymph # (Auto) 1.5 [place] # (Auto) 0.2 Eos # (Auto) 0.1 Baso # (Auto) 0.0 Immature Gran % 0.6 Nucleated RBC % 0.0 Immature Gran # 0.03 Nucleated RBCs # 0.00 Immature Plt Fraction 0.0 INR 1.0 PT Patient/Control Mix 10.9 Circ Anticoag PTT 42.8 H Sodium 139 Potassium 4.1 Chloride 104 Carbon Dioxide 25 Anion Gap 14.1 BUN 12 Creatinine 0.70 GFR Calculation 107 BUN/Creatinine Ratio 17.00 Glucose 151 H POC Glucose Calculated Osmolality 279.5 Calcium 8.6 Magnesium 1.7 L Blood Type Antibody Screen
[2017-07-30] MEDS: INSULIN REGULAR 100 UNIT/ML SUBCUT SCH ×4 (09:03→21:35)
[2017-07-30] MEDS: ACETAMINOPHEN 325 MG TABLET PO PRN (09:04)
[2017-07-30] MEDS: SODIUM CHLORIDE 0.45% 1,000 ML IV SCH ×3 (09:04→16:35)
[2017-07-30] MEDS: MAGNESIUM GLUCONATE 500 MG TABLET PO SCH (09:04)
[2017-07-30] MEDS: PREGABALIN 75 MG CAPSULE PO SCH ×3 (09:05→21:32)
[2017-07-30] MEDS: LOSARTAN 25 MG TABLET PO SCH (09:06)
[2017-07-30] MEDS: SERTRALINE 100 MG TABLET PO SCH ×2 (09:06→21:32)
[2017-07-30] MEDS: ROSUVASTATIN 20 MG TABLET PO SCH (09:06)
[2017-07-30] MEDS: INSULIN GLARGINE 100 UNIT/ML SUBCUT SCH (09:07)
[2017-07-30] MEDS: ASPIRIN EC 81 MG TABLET PO SCH (09:07)
[2017-07-30] MEDS: CHLORHEXIDINE 0.12% ORAL RINSE 60 ML BOTTLE SWISH/SPIT SCH ×2 (09:08→21:41)
[2017-07-30 09:35] LABS: PT Patient Result 10.9 SECS
[2017-07-30 09:41] LABS: Partial Thromboplastin Time 41.2 SECS (0-40)
--- NOTE | 2017-07-30 13:31 | CT Report ---
CT chest w con Indication: Study being acquired to evaluate the relationship of the left internal mammary artery to sternum. Comparison: None. Technique: CT of the chest was performed following the administration of intravenous contrast. The CT examination was performed using one or more of the following dose reduction techniques: Automatic exposure control, adjustment of the mA and kV according to patient size, or iterative reconstruction techniques. Findings: The aorta demonstrates normal three-vessel arch anatomy. Images were acquired at 3 mm intervals which reduces anatomic detail and additionally, the patient received injection of intravenous contrast on the left side. The contrast column within the left subclavian vein results in streak artifact obscuring the origin of the left internal mammary artery. On some images, a small vessel is demonstrated in the expected location of the left internal mammary artery. Its uncertain whether this represents left internal mammary artery given the small size. This particular vessels not well visualized. Previous sternotomy is demonstrated. Extensive coronary artery calcifications are noted within the left and right coronary circulation. Heart size appears within normal limits. Esophagus demonstrates no abnormality. No adenopathy is noted within the axilla, patti, or mediastinum. Osseous structures demonstrate no acute findings. Moderate to severe splenomegaly is demonstrated. The spleen measures 15.2 x 5.5 x 12.2 cm. Hepatic steatosis is not excluded. Impression: 1. The study is not protocoled correctly to evaluate left internal mammary artery. Technical limitations exists in the the images were acquired at 3 mm intervals as well as the patient was injected on the left resulting in a large contrast column within the left subclavian vein resulting in streak artifact obscuring the left internal mammary origin. Additionally, cardiac motion is present as the study was not acquired using gated technique. There is a small vessel and a left retrosternal location that may reflect a very small left internal mammary artery. Its uncertain whether this terminates in bypass to the left coronary circulation. 2. Moderate splenomegaly. Other findings as detailed. 07/30/2017 1:24 PM PROCEDURE INTERPRETED AT [facility] DEPARTMENT OF RADIOLOGY Final Report Signed by: Dr. rPasanna Tariq
[2017-07-30 16:01] LABS: PT Patient Result 10.7 SECS
[2017-07-30 16:02] LABS: Partial Thromboplastin Time 43.8 SECS (0-40)
[2017-07-30] MEDS: NITROGLYCERIN DRIP 50 MG/250 ML BOTTLE IV SCH (16:02)
[2017-07-30] MEDS: METOPROLOL TARTRATE 25 MG TABLET PO SCH ×2 (16:02→21:32)
[2017-07-30] MEDS ORDERED: FUROSEMIDE 40 MG/4 ML VIAL IV ONE (17:45)
[2017-07-30] MEDS: SODIUM CHLORIDE 0.9% 1,000 ML IV SCH (17:46)
[2017-07-30] MEDS: HEPARIN DRIP 25,000 UNITS/500 ML PREMIX IV SCH (19:51)
[2017-07-30 22:58] LABS: PT Patient Result 10.4 SECS
[2017-07-30 23:04] LABS: Partial Thromboplastin Time 40.6 SECS (0-40)
[2017-07-31] MEDS ORDERED: PAPAVERINE 60 MG/2 ML VIAL ONE (05:46)
[2017-07-31] MEDS ORDERED: TISSUE ADHESIVE 1 EACH APPLICATOR TOP ONE (05:46)
[2017-07-31] MEDS ORDERED: VANCOMYCIN 1,000 MG VIAL ONE (05:47)
[2017-07-31 05:57] LABS: Basophils % 0.1 % (0.0-0.8); Eosinophils # 0.1 10*3/uL (0.0-0.87); Eosinophils % 1.7 % (0.00-10.9); Hematocrit 31.6 VOL% (35.7-47.0); Hemoglobin 10.6 GM/DL (12.0-16.0); Immature Granulocytes % 0.7 %; Immature Granulocytes Absolute 0.05 #; Lymphocytes # 1.5 10*3/uL (1.4-4.0); Lymphocytes % 21.6 % (21.3-54.2); Mean Corpuscular HGB Conc 33.5 GM/DL (32-36); Mean Corpuscular Hemoglobin 30 PG (27-34); Mean Corpuscular Volume 89.8 FL (87-102); Mean Platelet Volume 11.9 FL (9.6-12.0); Monocytes # 0.3 10*3/uL (0.11-0.8); Monocytes % 4.7 % (1.7-12.7); Neutrophils % 71.2 % (38.7-73.9); Platelet Count 137 T/CUMM (130-400); Red Blood Count 3.52 MC/CUMM (3.8-5.5); Red Cell Distribution Width 13.9 % (9.3-17.3)
[2017-07-31] MEDS ORDERED: CEFUROXIME INJ 1,500 MG in SODIUM CHLORIDE 0.9% 100 ML IV ONE ×2 (06:00→09:14)
[2017-07-31 06:38] LABS: Albumin 3.3 G/DL (3.4-5.0); Bilirubin,Total 0.5 MG/DL (0.2-1.0); Calcium 9.3 MG/DL (8.5-10.1); Osmolality,Calculated 276.5 MOS/KG (273-304); Potassium 3.8 MMOL/L (3.5-5.1); Total Protein 7.1 G/DL (6.4-8.3)
--- NOTE | 2017-07-31 06:57 | Cardiology Progress Note ---
Assessment and Plan (1) CAD (coronary artery disease) Status: Chronic Current Visit: Yes (2) Hypertension Status: Chronic Current Visit: Yes (3) Dyslipidemia Status: Chronic Current Visit: Yes (4) Former tobacco use Status: Chronic Current Visit: Yes (5) Hx of CABG Status: Chronic Current Visit: Yes (6) Depression Status: Chronic Current Visit: Yes (7) Diabetes Status: Chronic Current Visit: Yes Cardiology - PN: Subj Interval history: Cardiology note 47-year-old woman longtime diabetic with recurrent chest pain Status post three-vessel CABG February 2011 and now has severe disease progression Telemetry shows steady sinus rhythm No pain on IV nitro and heparin Regular rhythm no murmur or gallop Clear lungs Right groin soft and dry 2+ distal pulses Lab data today White count 7.0 hemoglobin 10.6 hematocrit 31.6 Sodium 139 potassium 3.8 chloride 102 CO2 28 BUN 10 creatinine 0.70 glucose 116 Impression Status post two-vessel CABG February 2011 with GUARDADO graft to LAD, vein graft to PDA and vein graft to diagonal. Cardiac cath July 28 showed severe ostial left main stenosis with severe disease at the distal GUARDADO anastomosis to LAD and marked progression of disease in the mid circumflex and PDA beyond the graft insertion site. EF 55%. Significant myocardium at risk Longtime diabetic Hypertension Obesity Hyperlipidemia Tobacco abuse in remission Plan Redo CABG today Exam (Progress Note) - Constitutional Vitals: Period Temp Pulse Resp BP Sys/Haas Pulse Ox Last 24 Hr 96.6 F-97.7 F 64-91 12-30 89-169/53-129 90-98 Result/EKG - Labs CBC & BMP: 07/31/17 05:30 07/31/17 05:30 Labs: Laboratory Results - last 24 hr 07/29/17 07/30/17 07/30/17 16:54 08:26 08:56 WBC RBC Hgb Hct MCV MCH MCHC RDW Plt Count MPV Neut % (Auto) Lymph % (Auto) [place] % (Auto) Eos % (Auto) Baso % (Auto) Neut # (Auto) Lymph # (Auto) [place] # (Auto) Eos # (Auto) Baso # (Auto) Immature Gran % Nucleated RBC % Immature Gran # Nucleated RBCs # Immature Plt Fraction INR 1.0 PT Patient/Control Mix 10.9 Circ Anticoag PTT 41.2 H Sodium Potassium Chloride Carbon Dioxide Anion Gap BUN Creatinine GFR Calculation BUN/Creatinine Ratio Glucose POC Glucose 248 H Calculated Osmolality Calcium Total Bilirubin AST ALT Alkaline Phosphatase Total Protein Albumin Globulin Albumin/Globulin Ratio Blood Type O POSITIVE Antibody Screen Negative Crossmatch See Detail 07/30/17 07/30/17 07/30/17 11:21 15:17 15:58 WBC RBC Hgb Hct MCV MCH MCHC RDW Plt Count MPV Neut % (Auto) Lymph % (Auto) [place] % (Auto) Eos % (Auto) Baso % (Auto) Neut # (Auto) Lymph # (Auto) [place] # (Auto) Eos # (Auto) Baso # (Auto) Immature Gran % Nucleated RBC % Immature Gran # Nucleated RBCs # Immature Plt Fraction INR 1.0 PT Patient/Control Mix 10.7 Circ Anticoag PTT 43.8 H Sodium Potassium Chloride Carbon Dioxide Anion Gap BUN Creatinine GFR Calculation BUN/Creatinine Ratio Glucose POC Glucose 247 H 176 H Calculated Osmolality Calcium Total Bilirubin AST ALT Alkaline Phosphatase Total Protein Albumin Globulin Albumin/Globulin Ratio Blood Type Antibody Screen Crossmatch 07/30/17 07/30/17 07/30/17 20:19 21:58 Unknown WBC RBC Hgb Hct MCV MCH MCHC RDW Plt Count MPV Neut % (Auto) Lymph % (Auto) [place] % (Auto) Eos % (Auto) Baso % (Auto) Neut # (Auto) Lymph # (Auto) [place] # (Auto) Eos # (Auto) Baso # (Auto) Immature Gran % Nucleated RBC % Immature Gran # Nucleated RBCs # Immature Plt Fraction INR 1.0 PT Patient/Control Mix 10.4 Circ Anticoag PTT 40.6 H Sodium Potassium Chloride Carbon Dioxide Anion Gap BUN Creatinine GFR Calculation BUN/Creatinine Ratio Glucose POC Glucose 359 H Calculated Osmolality Calcium Total Bilirubin AST ALT Alkaline Phosphatase Total Protein Albumin Globulin Albumin/Globulin Ratio Blood Type O POSITIVE Antibody Screen Crossmatch 07/31/17 07/31/17 05:30 05:30 WBC 7.0 D RBC 3.52 L Hgb 10.6 L Hct 31.6 L MCV 89.8 MCH 30 MCHC 33.5 RDW 13.9 Plt Count 137 MPV 11.9 Neut % (Auto) 71.2 Lymph % (Auto) 21.6 [place] % (Auto) 4.7 Eos % (Auto) 1.7 Baso % (Auto) 0.1 Neut # (Auto) 5.0 Lymph # (Auto) 1.5 [place] # (Auto) 0.3 Eos # (Auto) 0.1 Baso # (Auto) 0.0 Immature Gran % 0.7 Nucleated RBC % 0.0 Immature Gran # 0.05 Nucleated RBCs # 0.00 Immature Plt Fraction 0.0 INR PT Patient/Control Mix Circ Anticoag PTT Sodium 139 Potassium 3.8 Chloride 102 Carbon Dioxide 28 Anion Gap 12.8 BUN 10 Creatinine 0.70 GFR Calculation 107 BUN/Creatinine Ratio 14.00 Glucose 116 H POC Glucose Calculated Osmolality 276.5 Calcium 9.3 Total Bilirubin 0.50 AST 59 H ALT 43 Alkaline Phosphatase 174 H Total Protein 7.1 Albumin 3.3 L Globulin 3.8 H Albumin/Globulin Ratio 0.8 L Blood Type Antibody Screen Crossmatch
[2017-07-31] MEDS ORDERED: PANTOPRAZOLE 40 MG TABLET PO ONE (07:56)
[2017-07-31] MEDS ORDERED: DIAZEPAM 5 MG TABLET PO ONE (07:56)
[2017-07-31] MEDS: INSULIN REGULAR 100 UNIT/ML SUBCUT SCH (08:22)
[2017-07-31] MEDS: PREGABALIN 75 MG CAPSULE PO SCH (10:36)
[2017-07-31] MEDS: ROSUVASTATIN 20 MG TABLET PO SCH (10:36)
[2017-07-31] MEDS: METOPROLOL TARTRATE 25 MG TABLET PO SCH (10:36)
[2017-07-31] MEDS: ASPIRIN EC 81 MG TABLET PO SCH (10:36)
[2017-07-31] MEDS: LOSARTAN 25 MG TABLET PO SCH (10:36)
[2017-07-31] MEDS: INSULIN GLARGINE 100 UNIT/ML SUBCUT SCH (10:36)
[2017-07-31] MEDS: SERTRALINE 100 MG TABLET PO SCH (10:37)
[2017-07-31] MEDS: CHLORHEXIDINE 0.12% ORAL RINSE 60 ML BOTTLE SWISH/SPIT SCH ×2 (10:37→21:33)
[2017-07-31] MEDS: MAGNESIUM GLUCONATE 500 MG TABLET PO SCH (10:37)
[2017-07-31] MEDS ORDERED: LIDOCAINE 2% 5 ML VIAL ONE (11:30)
[2017-07-31] MEDS ORDERED: AMINOCAPROIC ACID 5,000 MG/20 ML VIAL IV ONE (11:30)
[2017-07-31] MEDS ORDERED: PHENYLEPHRINE 1 MG/10 ML SYRINGE IV ONE (11:30)
[2017-07-31] MEDS ORDERED: EPINEPHrine 1 MG/ML VIAL ONE (11:30)
[2017-07-31] MEDS ORDERED: VECURONIUM 20 MG VIAL IV ONE (11:30)
[2017-07-31] MEDS ORDERED: CALCIUM CHLORIDE 1,000 MG/10 ML SYRINGE IV ONE ×2 (11:30→15:56)
[2017-07-31 12:14] LABS: ABG HCO3 25.3 MMOL/L (20-26); ABG PCO2 37.7 MM HG (35-48); ABG PH 7.432 (7.35-7.45); ABG TCO2 22.8 MMOL/L (23-27); Glucose Heart Surgery 114 MG/DL (74-106); Hematocrit Heart Surgery 30.5 PERCENT (37-47); Hemoglobin Heart Surgery 9.9 G/DL (12.0-16.0); Ionized Calcium Arterial 1.13 MMOL/L (1.21-1.46); PCO2 Patient Temp Arterial 37.7 MMHG; PH Patient Temp Arterial 7.432; Patient Temperature 37 CELCIUS; Potassium Heart/CVR 3.9 MMOL/L (3.5-5.1); Sodium Heart/CVR 139 MMOL/L (135-145)
[2017-07-31 13:17] LABS: Apearance,Urine CLEAR (Clear); Bacteria,Urine Occasional /HPF (Few); Bilirubin,Urine Negative (Negative); Blood, Urine Negative (Negative); Glucose,Urine (UA) Negative (Negative); Hyaline Casts,Urine 12 /LPF (0-3); Ketones,Urine Negative (Negative); Mucus,Urine Occasional /LPF (Occasional); Nitrite,Urine Negative (Negative); Protein,Urine Negative; RBC,Urine 1 /HPF (0-4); Urine Color Yellow (Yellow); Urine Specific Gravity 1.019 (1.001-1.035); Urine Urobilinogen < 2.0 EU/DL (0.2-1.0); WBC,Urine <1 /HPF (0-6)
[2017-07-31 14:23] LABS: Hematocrit Heart Surgery 34.2 PERCENT (37-47); Hemoglobin Heart Surgery 11.1 G/DL (12.0-16.0); PCO2 Patient Temp Venous 48.2 MM HG; PH Patient Temp Venous 7.372; PO2 Patient Temp Venous 39.8 MM HG; Potassium Heart/CVR 3.7 MMOL/L (3.5-5.1); VBG Base Excess 2.1 MEQ/L (0-4); VBG HCO3 25.8 MEQ/L (24-28); VBG PCO2 48.2 MMHG (41-51); VBG PH 7.372; VBG PO2 39.8 MMHG (17-40)
[2017-07-31] MEDS ORDERED: MANNITOL 12.5 GM/50 ML VIAL IV ONE ×2 (14:54→16:44)
[2017-07-31 15:13] LABS: Hematocrit Heart Surgery 30.6 PERCENT (37-47); Hemoglobin Heart Surgery 9.9 G/DL (12.0-16.0); PCO2 Patient Temp Venous 42.6 MM HG; PH Patient Temp Venous 7.42; PO2 Patient Temp Venous 40.6 MM HG; Potassium Heart/CVR 5.8 MMOL/L (3.5-5.1); VBG Base Excess 2.9 MEQ/L (0-4); VBG HCO3 26.6 MEQ/L (24-28); VBG Oxygen Saturation 75.3 %; VBG PCO2 42.6 MMHG (41-51); VBG PH 7.42; VBG PO2 40.6 MMHG (17-40)
[2017-07-31 15:38] LABS: Hematocrit Heart Surgery 25.4 PERCENT (37-47); Hemoglobin Heart Surgery 8.2 G/DL (12.0-16.0); PCO2 Patient Temp Venous 40.2 MM HG; PH Patient Temp Venous 7.435; PO2 Patient Temp Venous 37.4 MM HG; Potassium Heart/CVR 4.6 MMOL/L (3.5-5.1); VBG Base Excess 2.6 MEQ/L (0-4); VBG HCO3 26.4 MEQ/L (24-28); VBG Oxygen Saturation 70.8 %; VBG PCO2 40.2 MMHG (41-51); VBG PH 7.435; VBG PO2 37.4 MMHG (17-40)
[2017-07-31] MEDS ORDERED: POTASSIUM CHLORIDE RIDER 100 ML IV ONE (15:56)
[2017-07-31] MEDS ORDERED: PHENYLEPHRINE DRIP 40 MG/250 ML PREMIX IV ONE (15:56)
[2017-07-31] MEDS ORDERED: NITROPRUSSIDE 50 MG/2 ML VIAL ONE (15:56)
[2017-07-31] MEDS ORDERED: ALBUMIN 5% 12.5 GM/250 ML VIAL IV ONE (15:57)
[2017-07-31 16:10] LABS: Hemoglobin Heart Surgery 8.7 G/DL (12.0-16.0); PH Patient Temp Venous 7.444; Potassium Heart/CVR 4.7 MMOL/L (3.5-5.1); VBG Base Excess 1.4 MEQ/L (0-4); VBG HCO3 25.5 MEQ/L (24-28); VBG Oxygen Saturation 66.7 %; VBG PH 7.444; VBG PO2 28.1 MMHG (17-40)
[2017-07-31 16:12] LABS: PO2 Patient Temp Venous 28.1 MM HG
[2017-07-31 16:39] LABS: ABG Base Excess -0.8 MMOL/L (-2.5-2.5); ABG HCO3 24.5 MMOL/L (20-26); ABG Oxygen Saturation 96.5 % (95-100); ABG PCO2 43.2 MM HG (35-48); ABG PH 7.371 (7.35-7.45); ABG PO2 91.2 MM HG (80-95); ABG TCO2 25.8 MMOL/L (23-27); Glucose Heart Surgery 311 MG/DL (74-106); Hemoglobin Heart Surgery 8.1 G/DL (12.0-16.0); Ionized Calcium Arterial 1.13 MMOL/L (1.21-1.46); Potassium Heart/CVR 3.7 MMOL/L (3.5-5.1); Sodium Heart/CVR 133 MMOL/L (135-145)
[2017-07-31 16:40] LABS: Patient Temperature 37 CELCIUS
[2017-07-31] MEDS ORDERED: SODIUM BICARBONATE 50 MEQ/50 ML SYRINGE IV ONE (16:44)
[2017-07-31] MEDS ORDERED: DEXTROSE 5% KCL 20 MEQ 40 MEQ/2,000 ML BAG IV ONE (16:44)
[2017-07-31] MEDS ORDERED: PROTAMINE SULFATE 250 MG/25 ML VIAL IV ONE (16:44)
[2017-07-31] MEDS ORDERED: MAGNESIUM SULFATE 1 GM/2 ML VIAL ONE (16:44)
[2017-07-31] MEDS ORDERED: HEPARIN 10,000 UNIT/10 ML VIAL ONE (16:44)
[2017-07-31] MEDS ORDERED: FUROSEMIDE 20 MG/2 ML VIAL ONE (16:44)
[2017-07-31] MEDS ORDERED: methylPREDNISolone SOD SUC 1,000 MG/8 ML VIAL ONE (16:44)
[2017-07-31] MEDS ORDERED: ALBUMIN 25% 25 GM/100 ML VIAL IV ONE (16:44)
[2017-07-31] MEDS ORDERED: PHENYLEPHRINE 50 MG/5 ML VIAL ONE (16:45)
[2017-07-31] MEDS ORDERED: PROTAMINE SULFATE 50 MG/5 ML VIAL IV ONE (16:45)
[2017-07-31] MEDS: SODIUM CHLORIDE 0.45% 1,000 ML IV SCH ×2 (18:00)
[2017-07-31] MEDS ORDERED: MIDAZOLAM 2 MG/2 ML VIAL IV PRN (18:03)
[2017-07-31] MEDS ORDERED: ACETAMINOPHEN 650 MG SUPP RECTAL PRN (18:03)
[2017-07-31] MEDS ORDERED: CALCIUM CHLORIDE 1,000 MG/10 ML SYRINGE IV PRN (18:03)
[2017-07-31] MEDS ORDERED: MAGNESIUM SULF RIDER 4 GM in PREMIX 1 EACH IV PRN (18:03)
[2017-07-31] MEDS ORDERED: DEXTROSE 50% 25 GM/50 ML SYRINGE IV PRN ×4 (18:03→19:28)
[2017-07-31] MEDS ORDERED: ONDANSETRON 4 MG/2 ML VIAL IV PRN (18:03)
[2017-07-31] MEDS ORDERED: CHLORHEXIDINE 4% SOLN 118 ML BOTTLE TOP PRN (18:03)
[2017-07-31] MEDS ORDERED: SODIUM CHLORIDE 0.9% 250 ML IV PRN (18:03)
[2017-07-31] MEDS ORDERED: MORPHINE 10 MG/1 ML VIAL IV PRN (18:03)
[2017-07-31 18:10] LABS: ABG Base Excess -2.9 MMOL/L (-2.5-2.5); ABG HCO3 21.4 MMOL/L (20-26); ABG Oxygen Saturation 98.1 % (95-100); ABG PCO2 35.3 MM HG (35-48); ABG PO2 121.1 MM HG (80-95); ABG TCO2 22.5 MMOL/L (23-27); Glucose Heart Surgery 342 MG/DL (74-106); Potassium Heart/CVR 3.4 MMOL/L (3.5-5.1)
[2017-07-31 18:10] LABS: Basophils % 0.2 % (0.0-0.8); Eosinophils # 0.1 10*3/uL (0.0-0.87); Eosinophils % 0.4 % (0.00-10.9); Hematocrit 24.1 VOL% (35.7-47.0); Immature Granulocytes % 1.1 %; Immature Granulocytes Absolute 0.21 #; Lymphocytes # 3.6 10*3/uL (1.4-4.0); Lymphocytes % 19.3 % (21.3-54.2); Mean Corpuscular HGB Conc 33.6 GM/DL (32-36); Mean Corpuscular Hemoglobin 30 PG (27-34); Mean Corpuscular Volume 88.6 FL (87-102); Mean Platelet Volume 11.7 FL (9.6-12.0); Monocytes # 0.8 10*3/uL (0.11-0.8); Monocytes % 4.2 % (1.7-12.7); Neutrophils # 13.8 10*3/uL (1.4-7.4); Neutrophils % 74.8 % (38.7-73.9); Red Cell Distribution Width 16.4 % (9.3-17.3)
[2017-07-31 18:12] LABS: Hemoglobin 8.1 GM/DL (12.0-16.0); Platelet Count 233 T/CUMM (130-400); Red Blood Count 2.72 MC/CUMM (3.8-5.5); White Blood Count 18.5 T/CUMM (4-12)
[2017-07-31 18:22] LABS: INR 1.2; PT Patient Result 12.3 SECS
[2017-07-31 18:27] LABS: Lactic Acid 5.6 MMOL/L (0.4-2.0)
[2017-07-31] MEDS: ALBUMIN 5% 12.5 GM in PREMIX 1 EACH IV PRN ×2 (18:30→22:28)
[2017-07-31] MEDS: POTASSIUM CHLORIDE RIDER 20 MEQ in PREMIX 1 EACH IV PRN (18:30)
[2017-07-31 18:34] LABS: Calcium 8.3 MG/DL (8.5-10.1); Osmolality,Calculated 288.7 MOS/KG (273-304); Potassium 3.8 MMOL/L (3.5-5.1)
[2017-07-31] MEDS ORDERED: MIDAZOLAM 10 MG/2 ML VIAL ONE ×2 (18:37→21:35)
[2017-07-31] MEDS ORDERED: SUFentanil 250 MCG/5 ML AMP ONE (18:37)
[2017-07-31] MEDS: PHENYLEPHRINE DRIP 40 MG/250 ML PREMIX IV SCH (18:45)
[2017-07-31 18:50] LABS: VBG Base Excess -7.4 MEQ/L (0-4); VBG HCO3 17.9 MEQ/L (24-28); VBG Oxygen Saturation 52.4 %; VBG PCO2 28.6 MMHG (41-51); VBG PH 7.383; VBG PO2 30.2 MMHG (17-40)
[2017-07-31] MEDS: POTASSIUM CHLORIDE RIDER 10 MEQ in PREMIX 1 EACH IV PRN (19:27)
[2017-07-31] MEDS ORDERED: INSULIN REGULAR 100 UNIT/ML IV PRN (19:28)
[2017-07-31] MEDS ORDERED: INSULIN REGULAR 100 UNIT/ML IV ONE (19:28)
[2017-07-31] MEDS ORDERED: INSULIN REGULAR DRIP 100 ML IV SCH (19:30)
--- NOTE | 2017-07-31 19:57 | XRay Report ---
Portable chest July 31, 2017 Indication: Line placement Comparison images dated July 28, 2017 Findings: Patient is status post recent sternotomy. Heart size is normal. Mediastinal and right-sided chest tubes as well as endotracheal tube appear in satisfactory position. [place]ena catheter terminates at the expected position of the left pulmonary outflow tract. Low lung volumes. Small right pleural effusion and trace left pleural effusions are noted. Impression: Uncomplicated postoperative chest with small right and trace left pleural effusions. PROCEDURE INTERPRETED AT [facility] DEPARTMENT OF RADIOLOGY Final Report Signed by: Prasanna Braden
[2017-07-31] MEDS: MAGNESIUM SULF RIDER 2 GM in PREMIX 1 EACH IV PRN (20:22)
[2017-07-31] MEDS: INSULIN REGULAR 100 UNIT/ML IV PRN (23:19)
--- NOTE | 2017-07-31 23:58 | Anesthesia Post-Op ---
Anesthesia Post OP - Post Ansesthetic Evaluation Patient seen in post op: Yes Resp: other (Post op ventilation- no complications) CV: within normal limits Mental: within normal limits Temp: within normal limits [id number]: within normal limits Nausea and Vomiting: within normal limits Pain: within normal limits
[2017-08-01] MEDS ORDERED: VECURONIUM 10 MG VIAL IV ONE (00:10)
[2017-08-01] MEDS ORDERED: SEVOFLURANE 1 UNIT/15 MINUTE INH ONE (00:10)
[2017-08-01] MEDS ORDERED: AMINOCAPROIC ACID 5,000 MG/20 ML VIAL IV ONE (00:11)
[2017-08-01] MEDS ORDERED: SODIUM CHLORIDE 0.9% 1,000 ML IV ONE (00:11)
[2017-08-01] MEDS ORDERED: NITROGLYCERIN DRIP 50 MG/250 ML BOTTLE IV ONE (00:11)
[2017-08-01] MEDS ORDERED: ETOMIDATE 20 MG/10 ML VIAL IV ONE (00:11)
[2017-08-01] MEDS ORDERED: LACTATED RINGERS 1,000 ML IV ONE (00:11)
[2017-08-01] MEDS ORDERED: SODIUM CHLORIDE 0.9% 750 ML IV ONE (00:11)
[2017-08-01] MEDS: INSULIN REGULAR 100 UNIT/ML IV PRN (01:02)
[2017-08-01 03:21] LABS: Basophils % 0.1 % (0.0-0.8); Hematocrit 25.7 VOL% (35.7-47.0); Hemoglobin 8.8 GM/DL (12.0-16.0); Immature Granulocytes % 0.6 %; Immature Granulocytes Absolute 0.05 #; Lymphocytes # 0.9 10*3/uL (1.4-4.0); Lymphocytes % 11.1 % (21.3-54.2); Mean Corpuscular HGB Conc 34.2 GM/DL (32-36); Mean Corpuscular Hemoglobin 29 PG (27-34); Mean Platelet Volume 12.2 FL (9.6-12.0); Monocytes # 0.4 10*3/uL (0.11-0.8); Monocytes % 4.8 % (1.7-12.7); Neutrophils # 6.5 10*3/uL (1.4-7.4); Neutrophils % 83.4 % (38.7-73.9); Platelet Count 100 T/CUMM (130-400); Red Blood Count 2.99 MC/CUMM (3.8-5.5); Red Cell Distribution Width 15.9 % (9.3-17.3); White Blood Count 7.8 T/CUMM (4-12)
[2017-08-01] MEDS: CEFUROXIME INJ 1,500 MG in SODIUM CHLORIDE 0.9% 100 ML IV SCH ×2 (03:30→14:17)
[2017-08-01] MEDS: MORPHINE 2 MG/1 ML SYRINGE IV PRN ×3 (03:30→17:40)
[2017-08-01 03:42] LABS: Calcium 7.8 MG/DL (8.5-10.1); Magnesium 2.5 MG/DL (1.8-2.4); Osmolality,Calculated 282.3 MOS/KG (273-304); Potassium 3.7 MMOL/L (3.5-5.1)
[2017-08-01] MEDS: POTASSIUM CHLORIDE RIDER 20 MEQ in PREMIX 1 EACH IV PRN ×2 (04:05→17:07)
[2017-08-01] MEDS: POTASSIUM CHLORIDE RIDER 10 MEQ in PREMIX 1 EACH IV PRN ×2 (04:39→06:41)
[2017-08-01] MEDS: SODIUM CHLORIDE 0.45% 1,000 ML IV SCH ×2 (05:00→23:21)
[2017-08-01 05:11] LABS: Platelet Estimate Adequate
[2017-08-01 05:27] LABS: ABG Base Excess -1.7 MMOL/L (-2.5-2.5); ABG HCO3 23.5 MMOL/L (20-26); ABG Oxygen Saturation 91.9 % (95-100); ABG PCO2 41.7 MM HG (35-48); ABG PH 7.369 (7.35-7.45); ABG PO2 65.3 MM HG (80-95); ABG TCO2 24.8 MMOL/L (23-27); Glucose Heart Surgery 111 MG/DL (74-106); Hemoglobin Heart Surgery 9.9 G/DL (12.0-16.0); Potassium Heart/CVR 4.9 MMOL/L (3.5-5.1)
[2017-08-01] MEDS ORDERED: FUROSEMIDE 40 MG/4 ML VIAL IV ONE ×2 (05:49→15:32)
[2017-08-01 06:00] LABS: ABG Base Excess -1.4 MMOL/L (-2.5-2.5); ABG HCO3 23.1 MMOL/L (20-26); ABG Oxygen Saturation 94.1 % (95-100); ABG PCO2 43.2 MM HG (35-48); ABG PH 7.354 (7.35-7.45); ABG PO2 77.5 MM HG (80-95); ABG TCO2 22.2 MMOL/L (23-27); Glucose Heart Surgery 114 MG/DL (74-106); Hematocrit Heart Surgery 29.2 PERCENT (37-47); Hemoglobin Heart Surgery 9.4 G/DL (12.0-16.0); Potassium Heart/CVR 4.7 MMOL/L (3.5-5.1)
[2017-08-01] MEDS: INSULIN REGULAR 100 UNIT/ML SUBCUT SCH ×4 (07:27→21:25)
[2017-08-01] MEDS: SODIUM CHLORIDE 0.9% 1,000 ML IV SCH (07:28)
[2017-08-01] MEDS: PREGABALIN 75 MG CAPSULE PO SCH (07:28)
[2017-08-01] MEDS: NITROGLYCERIN DRIP 50 MG/250 ML BOTTLE IV SCH (07:28)
[2017-08-01 07:46] LABS: ABG Base Excess -0.6 MMOL/L (-2.5-2.5); ABG HCO3 23.9 MMOL/L (20-26); ABG Oxygen Saturation 96.1 % (95-100); ABG PH 7.375 (7.35-7.45); ABG PO2 85.1 MM HG (80-95); ABG TCO2 22.6 MMOL/L (23-27); Glucose Heart Surgery 103 MG/DL (74-106); Hematocrit Heart Surgery 29.3 PERCENT (37-47); Hemoglobin Heart Surgery 9.5 G/DL (12.0-16.0); Potassium Heart/CVR 4.7 MMOL/L (3.5-5.1)
--- NOTE | 2017-08-01 07:56 | Cardiology Progress Note ---
Assessment and Plan (1) CAD (coronary artery disease) Status: Chronic Current Visit: Yes (2) Hypertension Status: Chronic Current Visit: Yes (3) Dyslipidemia Status: Chronic Current Visit: Yes (4) Former tobacco use Status: Chronic Current Visit: Yes (5) Hx of CABG Status: Chronic Current Visit: Yes (6) Depression Status: Chronic Current Visit: Yes (7) Diabetes Status: Chronic Current Visit: Yes Cardiology - PN: Subj Interval history: Cardiology note Postop day #1 redo two-vessel CABG. A little sleepy but arousable. Telemetry shows sinus rhythm in the 70s and 80s Blood pressure 102/50 on 8 mics Gino O2 sat 97 on 50% FiO2 Cardiac output 4.4 L/min cardiac index 2.5 PA pressure 32/19 main 24 Regular rhythm with soft rub Decreased breath sounds bilaterally Abdomen benign Lab data White count 7.8 hemoglobin 8.8 hematocrit 25.7 Sodium 141 potassium 3.7 chloride 107 CO2 24 BUN 11 creatinine 0.9 Glucose 160 magnesium 2.5 Impression Postop day #1 redo two-vessel CABG Longtime diabetic Status post 3-vessel CABG February 2011 with GUARDADO graft to LAD, vein graft to PDA and vein graft to diagonal Obesity Hyperlipidemia Hypertension Tobacco abuse in remission Plan Weaning vent Insulin drip Wean Gino Exam (Progress Note) - Constitutional Vitals: Period Temp Pulse Resp BP Sys/Haas Pulse Ox Last 24 Hr 97.2 F-99 F 69-76 8-27 87-155/41-95 93-100 Result/EKG - Labs CBC & BMP: 08/01/17 03:00 08/01/17 03:00 Labs: Laboratory Results - last 24 hr 07/29/17 07/31/17 07/31/17 16:54 08:07 11:25 WBC RBC Hgb Hct MCV MCH MCHC RDW Plt Count MPV Neut % (Auto) Lymph % (Auto) [place] % (Auto) Eos % (Auto) Baso % (Auto) Neut # (Auto) Lymph # (Auto) [place] # (Auto) Eos # (Auto) Baso # (Auto) Immature Gran % Nucleated RBC % Immature Gran # Nucleated RBCs # Platelet Estimate Immature Plt Fraction Anisocytosis INR PT Patient/Control Mix Circ Anticoag PTT Patient Temperature ABG pH ABG pH at Pt Temp ABG pCO2 ABG pCO2 at Pt Temp ABG pO2 ABG pO2 at Pt Temp ABG HCO3 ABG Total CO2 ABG O2 Saturation ABG Base Excess ABG Sodium VBG pH VBG pCO2 VBG pO2 VBG HCO3 VBG Total CO2 VBG O2 Saturation VBG Base Excess Hemoglobin Hematocrit Potassium Glucose Ionized Calcium FiO2 Sodium Chloride Carbon Dioxide Anion Gap BUN Creatinine GFR Calculation BUN/Creatinine Ratio POC Glucose 119 H 120 H Calculated Osmolality Lactic Acid Calcium Venous Ioniz Calcium Magnesium Urine Color Urine Appearance Urine pH Ur Specific [place] Urine Protein Urine Glucose (UA) Urine Ketones Urine Blood Urine Nitrate Urine Bilirubin Urine Urobilinogen Urine Leukocytes Urine RBC Urine WBC Urine Bacteria Hyaline Casts Urine Mucus Ur Culture Indicated? Blood Type O POSITIVE Antibody Screen Negative Crossmatch See Detail 07/31/17 07/31/17 07/31/17 12:01 12:01 13:08 WBC RBC Hgb Hct MCV MCH MCHC RDW Plt Count 105 L D MPV Neut % (Auto) Lymph % (Auto) [place] % (Auto) Eos % (Auto) Baso % (Auto) Neut # (Auto) Lymph # (Auto) [place] # (Auto) Eos # (Auto) Baso # (Auto) Immature Gran % Nucleated RBC % Immature Gran # Nucleated RBCs # Platelet Estimate Immature Plt Fraction Anisocytosis INR PT Patient/Control Mix Circ Anticoag PTT Patient Temperature 37 ABG pH 7.432 ABG pH at Pt Temp 7.432 ABG pCO2 37.7 ABG pCO2 at Pt Temp 37.7 ABG pO2 410.0 H ABG pO2 at Pt Temp 410.0 ABG HCO3 25.3 ABG Total CO2 22.8 L ABG O2 Saturation 100.0 ABG Base Excess 1.0 ABG Sodium 139 VBG pH VBG pCO2 VBG pO2 VBG HCO3 VBG Total CO2 VBG O2 Saturation VBG Base Excess Hemoglobin 9.9 L Hematocrit 30.5 L Potassium 3.9 Glucose 114 H Ionized Calcium 1.13 L FiO2 Sodium Chloride Carbon Dioxide Anion Gap BUN Creatinine GFR Calculation BUN/Creatinine Ratio POC Glucose Calculated Osmolality Lactic Acid Calcium Venous Ioniz Calcium Magnesium Urine Color Yellow Urine Appearance Clear Urine pH 5.0 Ur Specific [place] 1.019 Urine Protein Negative Urine Glucose (UA) Negative Urine Ketones Negative Urine Blood Negative Urine Nitrate Negative Urine Bilirubin Negative Urine Urobilinogen < 2.0 H Urine Leukocytes Negative Urine RBC 1 Urine WBC <1 Urine Bacteria Occasional Hyaline Casts 12 Urine Mucus Occasional Ur Culture Indicated? Not indicated Blood Type Antibody Screen Crossmatch 07/31/17 07/31/17 07/31/17 13:32 14:10 15:01 WBC RBC Hgb Hct MCV MCH MCHC RDW Plt Count 117 L MPV Neut % (Auto) Lymph % (Auto) [place] % (Auto) Eos % (Auto) Baso % (Auto) Neut # (Auto) Lymph # (Auto) [place] # (Auto) Eos # (Auto) Baso # (Auto) Immature Gran % Nucleated RBC % Immature Gran # Nucleated RBCs # Platelet Estimate Immature Plt Fraction Anisocytosis INR PT Patient/Control Mix Circ Anticoag PTT Patient Temperature 37 37 ABG pH ABG pH at Pt Temp 7.372 7.420 ABG pCO2 ABG pCO2 at Pt Temp 48.2 42.6 ABG pO2 ABG pO2 at Pt Temp 39.8 40.6 ABG HCO3 ABG Total CO2 ABG O2 Saturation ABG Base Excess ABG Sodium 138 126 L VBG pH 7.372 7.420 VBG pCO2 48.2 42.6 VBG pO2 39.8 40.6 H VBG HCO3 25.8 26.6 VBG Total CO2 25.3 25.3 VBG O2 Saturation 72.0 75.3 VBG Base Excess 2.1 2.9 Hemoglobin 11.1 L 9.9 L Hematocrit 34.2 L 30.6 L Potassium 3.7 5.8 H Glucose 146 H 507 H* Ionized Calcium FiO2 21.00 21.00 Sodium Chloride Carbon Dioxide Anion Gap BUN Creatinine GFR Calculation BUN/Creatinine Ratio POC Glucose Calculated Osmolality Lactic Acid Calcium Venous Ioniz Calcium 0.96 L 0.92 L Magnesium Urine Color Urine Appearance Urine pH Ur Specific [place] Urine Protein Urine Glucose (UA) Urine Ketones Urine Blood Urine Nitrate Urine Bilirubin Urine Urobilinogen Urine Leukocytes Urine RBC Urine WBC Urine Bacteria Hyaline Casts Urine Mucus Ur Culture Indicated? Blood Type Antibody Screen Crossmatch 07/31/17 07/31/17 07/31/17 15:31 15:59 16:32 WBC RBC Hgb Hct MCV MCH MCHC RDW Plt Count MPV Neut % (Auto) Lymph % (Auto) [place] % (Auto) Eos % (Auto) Baso % (Auto) Neut # (Auto) Lymph # (Auto) [place] # (Auto) Eos # (Auto) Baso # (Auto) Immature Gran % Nucleated RBC % Immature Gran # Nucleated RBCs # Platelet Estimate Immature Plt Fraction Anisocytosis INR PT Patient/Control Mix Circ Anticoag PTT Patient Temperature 37 37 37 ABG pH 7.371 ABG pH at Pt Temp 7.435 7.444 ABG pCO2 43.2 ABG pCO2 at Pt Temp 40.2 38.0 ABG pO2 91.2 ABG pO2 at Pt Temp 37.4 28.1 ABG HCO3 24.5 ABG Total CO2 25.8 ABG O2 Saturation 96.5 ABG Base Excess -0.8 ABG Sodium 129 L 129 L 133 L VBG pH 7.435 7.444 VBG pCO2 40.2 L 38.0 L VBG pO2 37.4 28.1 VBG HCO3 26.4 25.5 VBG Total CO2 25.2 26.6 VBG O2 Saturation 70.8 66.7 VBG Base Excess 2.6 1.4 Hemoglobin 8.2 L 8.7 L 8.1 L Hematocrit 25.4 L 26.0 L 24.0 L Potassium 4.6 4.7 3.7 Glucose 423 H 347 H 311 H Ionized Calcium 1.13 L FiO2 21.00 21.00 Sodium Chloride Carbon Dioxide Anion Gap BUN Creatinine GFR Calculation BUN/Creatinine Ratio POC Glucose Calculated Osmolality Lactic Acid Calcium Venous Ioniz Calcium 0.95 L 0.82 Magnesium Urine Color Urine Appearance Urine pH Ur Specific [place] Urine Protein Urine Glucose (UA) Urine Ketones Urine Blood Urine Nitrate Urine Bilirubin Urine Urobilinogen Urine Leukocytes Urine RBC Urine WBC Urine Bacteria Hyaline Casts Urine Mucus Ur Culture Indicated? Blood Type Antibody Screen Crossmatch 07/31/17 07/31/17 07/31/17 18:03 18:06 18:06 WBC 18.5 H D RBC 2.72 L D Hgb 8.1 L D Hct 24.1 L MCV 88.6 MCH 30 MCHC 33.6 RDW 16.4 Plt Count 233 D MPV 11.7 Neut % (Auto) 74.8 H Lymph % (Auto) 19.3 L [place] % (Auto) 4.2 Eos % (Auto) 0.4 Baso % (Auto) 0.2 Neut # (Auto) 13.8 H Lymph # (Auto) 3.6 [place] # (Auto) 0.8 Eos # (Auto) 0.1 Baso # (Auto) 0.0 Immature Gran % 1.1 Nucleated RBC % 0.0 Immature Gran # 0.21 Nucleated RBCs # 0.00 Platelet Estimate Immature Plt Fraction 0.0 Anisocytosis INR 1.2 PT Patient/Control Mix 12.3 Circ Anticoag PTT 30.0 D Patient Temperature ABG pH 7.400 ABG pH at Pt Temp ABG pCO2 35.3 ABG pCO2 at Pt Temp ABG pO2 121.1 H ABG pO2 at Pt Temp ABG HCO3 21.4 ABG Total CO2 22.5 L ABG O2 Saturation 98.1 ABG Base Excess -2.9 L ABG Sodium VBG pH VBG pCO2 VBG pO2 VBG HCO3 VBG Total CO2 VBG O2 Saturation VBG Base Excess Hemoglobin 10.0 L Hematocrit 29.0 L Potassium 3.4 L Glucose 342 H Ionized Calcium FiO2 Sodium Chloride Carbon Dioxide Anion Gap BUN Creatinine GFR Calculation BUN/Creatinine Ratio POC Glucose Calculated Osmolality Lactic Acid Calcium Venous Ioniz Calcium Magnesium Urine Color Urine Appearance Urine pH Ur Specific [place] Urine Protein Urine Glucose (UA) Urine Ketones Urine Blood Urine Nitrate Urine Bilirubin Urine Urobilinogen Urine Leukocytes Urine RBC Urine WBC Urine Bacteria Hyaline Casts Urine Mucus Ur Culture Indicated? Blood Type Antibody Screen Crossmatch 07/31/17 07/31/17 07/31/17 18:06 18:35 23:30 WBC RBC Hgb Hct MCV MCH MCHC RDW Plt Count MPV Neut % (Auto) Lymph % (Auto) [place] % (Auto) Eos % (Auto) Baso % (Auto) Neut # (Auto) Lymph # (Auto) [place] # (Auto) Eos # (Auto) Baso # (Auto) Immature Gran % Nucleated RBC % Immature Gran # Nucleated RBCs # Platelet Estimate Immature Plt Fraction Anisocytosis INR PT Patient/Control Mix Circ Anticoag PTT Patient Temperature ABG pH ABG pH at Pt Temp ABG pCO2 ABG pCO2 at Pt Temp ABG pO2 ABG pO2 at Pt Temp ABG HCO3 ABG Total CO2 ABG O2 Saturation ABG Base Excess ABG Sodium VBG pH 7.383 VBG pCO2 28.6 L VBG pO2 30.2 VBG HCO3 17.9 L VBG Total CO2 16.6 VBG O2 Saturation 52.4 VBG Base Excess -7.4 L Hemoglobin Hematocrit Potassium 3.8 Glucose 365 H Ionized Calcium FiO2 21.00 Sodium 138 Chloride 101 Carbon Dioxide 23 Anion Gap 17.8 H BUN 9 Creatinine 0.90 GFR Calculation 79 BUN/Creatinine Ratio 10.00 POC Glucose Calculated Osmolality 288.7 Lactic Acid 5.6 H 2.7 H Calcium 8.3 L Venous Ioniz Calcium Magnesium 2.0 Urine Color Urine Appearance Urine pH Ur Specific [place] Urine Protein Urine Glucose (UA) Urine Ketones Urine Blood Urine Nitrate Urine Bilirubin Urine Urobilinogen Urine Leukocytes Urine RBC Urine WBC Urine Bacteria Hyaline Casts Urine Mucus Ur Culture Indicated? Blood Type Antibody Screen Crossmatch 08/01/17 08/01/17 08/01/17 03:00 03:00 05:20 WBC 7.8 D RBC 2.99 L Hgb 8.8 L Hct 25.7 L MCV 86.0 L MCH 29 MCHC 34.2 RDW 15.9 Plt Count 100 L D MPV 12.2 H Neut % (Auto) 83.4 H Lymph % (Auto) 11.1 L [place] % (Auto) 4.8 Eos % (Auto) 0.0 Baso % (Auto) 0.1 Neut # (Auto) 6.5 Lymph # (Auto) 0.9 L [place] # (Auto) 0.4 Eos # (Auto) 0.0 Baso # (Auto) 0.0 Immature Gran % 0.6 Nucleated RBC % 0.0 Immature Gran # 0.05 Nucleated RBCs # 0.00 Platelet Estimate Adequate Immature Plt Fraction 8.7 H Anisocytosis INR PT Patient/Control Mix Circ Anticoag PTT Patient Temperature ABG pH 7.369 ABG pH at Pt Temp ABG pCO2 41.7 ABG pCO2 at Pt Temp ABG pO2 65.3 L ABG pO2 at Pt Temp ABG HCO3 23.5 ABG Total CO2 24.8 ABG O2 Saturation 91.9 L ABG Base Excess -1.7 ABG Sodium VBG pH VBG pCO2 VBG pO2 VBG HCO3 VBG Total CO2 VBG O2 Saturation VBG Base Excess Hemoglobin 9.9 L Hematocrit 29.0 L Potassium 3.7 4.9 Glucose 160 H 111 H Ionized Calcium FiO2 Sodium 141 Chloride 107 Carbon Dioxide 24 Anion Gap 13.7 BUN 11 Creatinine 0.90 GFR Calculation 79 BUN/Creatinine Ratio 12.00 POC Glucose Calculated Osmolality 282.3 Lactic Acid Calcium 7.8 L Venous Ioniz Calcium Magnesium 2.5 H Urine Color Urine Appearance Urine pH Ur Specific [place] Urine Protein Urine Glucose (UA) Urine Ketones Urine Blood Urine Nitrate Urine Bilirubin Urine Urobilinogen Urine Leukocytes Urine RBC Urine WBC Urine Bacteria Hyaline Casts Urine Mucus Ur Culture Indicated? Blood Type Antibody Screen Crossmatch 08/01/17 08/01/17 05:45 07:35 WBC RBC Hgb Hct MCV MCH MCHC RDW Plt Count MPV Neut % (Auto) Lymph % (Auto) [place] % (Auto) Eos % (Auto) Baso % (Auto) Neut # (Auto) Lymph # (Auto) [place] # (Auto) Eos # (Auto) Baso # (Auto) Immature Gran % Nucleated RBC % Immature Gran # Nucleated RBCs # Platelet Estimate Immature Plt Fraction Anisocytosis INR PT Patient/Control Mix Circ Anticoag PTT Patient Temperature ABG pH 7.354 7.375 ABG pH at Pt Temp ABG pCO2 43.2 42.0 ABG pCO2 at Pt Temp ABG pO2 77.5 L 85.1 ABG pO2 at Pt Temp ABG HCO3 23.1 23.9 ABG Total CO2 22.2 L 22.6 L ABG O2 Saturation 94.1 L 96.1 ABG Base Excess -1.4 -0.6 ABG Sodium VBG pH VBG pCO2 VBG pO2 VBG HCO3 VBG Total CO2 VBG O2 Saturation VBG Base Excess Hemoglobin 9.4 L 9.5 L Hematocrit 29.2 L 29.3 L Potassium 4.7 4.7 Glucose 114 H 103 Ionized Calcium FiO2 Sodium Chloride Carbon Dioxide Anion Gap BUN Creatinine GFR Calculation BUN/Creatinine Ratio POC Glucose Calculated Osmolality Lactic Acid Calcium Venous Ioniz Calcium Magnesium Urine Color Urine Appearance Urine pH Ur Specific [place] Urine Protein Urine Glucose (UA) Urine Ketones Urine Blood Urine Nitrate Urine Bilirubin Urine Urobilinogen Urine Leukocytes Urine RBC Urine WBC Urine Bacteria Hyaline Casts Urine Mucus Ur Culture Indicated? Blood Type Antibody Screen Crossmatch Quality Measures - VTE Contraindication to Pharmacological VTE Prophylaxis: Active Bleeding
[2017-08-01] MEDS: ASPIRIN EC 325 MG TABLET PO SCH (09:24)
[2017-08-01] MEDS: CHLORHEXIDINE 0.12% ORAL RINSE 60 ML BOTTLE SWISH/SPIT SCH ×2 (09:25→21:26)
--- NOTE | 2017-08-01 09:47 | XRay Report ---
Portable chest August 01, 2017 Indication: Postcardiac bypass, shortness of breath Comparison images from previous day at 0605 hours Findings: Interval advancement of [place]Marielena catheter in the left pulmonary outflow tract. Remaining tubes and lines are unchanged. Trace right pleural effusion with overall volume loss bilaterally. Minimal prominence of the perihilar interstitial pattern. No gross consolidation. No acute osseous abnormalities. Impression: 1. Interval repositioning of the [place]Marielena catheter 2. Stable small right pleural effusion with mild central interstitial prominence PROCEDURE INTERPRETED AT [facility] DEPARTMENT OF RADIOLOGY Final Report Signed by: Prasanna Braden
--- NOTE | 2017-08-01 11:05 | Operative Note ---
Date of procedure: 07/31/17 Pre-op diagnosis: Recurrent severe coronary artery disease status post CABG 7 years ago Post-op diagnosis: same Procedure: 1. [place] of right lower extremity great saphenous vein 2. Redo median sternotomy 3. Extensive lysis of adhesions around the heart 4. Institution of cardiopulmonary bypass 5. Redo CABG 2 saphenous vein graft to LAD, saphenous vein graft to distal circumflex artery Findings: The patient had an occluded GUARDADO LAD anastomosis. She had patent saphenous vein graft to the diagonal artery however it was not supplying significant myocardium. She had patent saphenous vein graft to the PDA however there is distal disease that might need to be addressed percutaneously. The patient had a cath showing severe left main [place] disease. There was significant myocardium at risk. There was extensive adhesions in the mediastinum. There was extensive adhesions around the right coronary graft as well as the PDA graft. The circumflex artery was very small target measuring less than 1 mm however he was able to institute bypass to it with acceptable flow. I also instituted distal bypass to reasonable target on the LAD sizing around 1.5 mm with reasonable flow after. The patient tolerated the procedure well. Please add modifier for complexity due to severe adhesions Details of the procedure: The patient was brought into the OR placed supine on the OR table and general endotracheal anesthesia was induced. Antibiotics were given. Timeout was performed. The patient was prepped and draped in the usual sterile fashion. An incision was made over the previous incision. The wires were identified and removed entirely. Midline on the previous sternotomy was identified. Under direct vision I sharply and bluntly dissected the tissues from under the sternum with appropriate retraction. And then I did my median sternotomy without any problems. I then started taking adhesions off on the diaphragmatic surface of the heart. And then I turned my attention towards taking adhesions of the right atrium as well as the aorta for proper cannulation. The right coronary graft was noted to be severely adhesed high up on the atrium as well as on the pericardium. I had to dissect all around to keep it intact and that was done successfully. I then cleaned the aorta appropriately and I identified both proximal anastomoses and they were kept intact. At this point I was able to cannulate the aorta as well as the right atrium. Bypass was started. Flow was good. I then proceeded with dissecting the left side of the sternum of the heart. I then dissected the left ventricle of the pericardium identifying the course of the graft to the diagonal artery. Extensive adhesions were again noted. After freeing the heart completely and circumferentially I turned my attention to dissect the aorta appropriately for cross-clamp to be applied. I then placed my cardioplegia antegrade needle. Cross-clamp was then applied and cardioplegia was inserted and the heart arrested successfully. I then flipped the heart and identified the circumflex target. It was very small however it was still within acceptable range for bypass. Distal anastomosis was achieved, it was difficult however the flow after was acceptable. I then turned my attention to the LAD graft. I identified the target right distal to the previous GUARDADO LAD anastomosis. Arteriotomy was performed and the anastomosis was created. Flow was good after. After this the cross-clamp was removed and the heart regained sinus rhythm. Proximal anastomosis was created to the ascending aorta to both grafts. At this point I weaned the patient slowly from bypass and she weaned well without any problems. There was very good flow pulsatile in both grafts after weaning off bypass. Hemostasis was achieved. Decannulation was done successfully. Close attention was paid to close hemostasis due to the extensive rock surface of the adhesions that were taken down. I inserted 3 chest tubes. Ventricular pacing wires were inserted. The sternum was then approximated using wires. The subcutaneous tissue closed using PDS. The skin was then closed using running Monocryl. The patient tolerated the procedure well and she was moved to ICU in good condition. Anesthesia: ANDREINA Surgeon / Physician: Andrey Alvarenga Svp Research And Strategic Analysis: Chris Marin Estimated blood loss: other (CPB) Tourniquet Time (Minutes): 46 Specimens: none sent Condition: critical Disposition: ICU Results - Labs CBC & BMP: 08/01/17 03:00 08/01/17 03:00 Discharge Plan - Discharge Medications No Action metFORMIN [Glucophage] 850 mg PO TID W/MEALS Sertraline [Zoloft] 100 mg PO BID Clopidogrel Bisulfate [Plavix] 75 mg PO DAILY Aspirin EC Tab 81 mg PO DAILY Pregabalin [Lyrica] 75 mg PO TID Glipizide [Glipizide ER] 2.5 mg PO DAILY Rosuvastatin [Crestor] 20 mg PO DAILY Losartan Potassium 12.5 mg PO DAILY Insulin Glargine [Lantus] 60 units SUBCUT DAILY Magnesium 250 mg PO DAILY - Follow Up or Referral - Forms/Instructions
--- NOTE | 2017-08-01 11:07 | Cardiothoracic Progress Note ---
Assessment and Plan (1) CAD (coronary artery disease) Status: Chronic Assessment and plan: Postoperative day 1 status post redo CABG 2. She is extubated and doing well. She is awake alert oriented 3. I will remove the [place] today. She is hemodynamically stable however would like to keep a closer eye on her today since has been less than 24 hours after surgery I would like to keep her today in the ICU. Chest tubes can go to waterseal. I will start Plavix, aspirin, Lasix and statins today. Tight control of her blood sugar level be achieved today. I will keep the Pelaez today for close urine output monitoring. DC IV fluids. Current Visit: Yes (2) Hx of CABG Status: Chronic Current Visit: Yes Exam (Progress Note) - Constitutional Vitals: Period Temp Pulse Resp BP Sys/Haas Pulse Ox Last 24 Hr 97.2 F-99 F 69-78 8-22 87-155/41-95 93-100 Result/EKG - Labs CBC & BMP: 08/01/17 03:00 08/01/17 03:00 Labs: Laboratory Results - last 24 hr 07/29/17 07/31/17 07/31/17 16:54 11:25 12:01 WBC RBC Hgb Hct MCV MCH MCHC RDW Plt Count 105 L D MPV Neut % (Auto) Lymph % (Auto) [place] % (Auto) Eos % (Auto) Baso % (Auto) Neut # (Auto) Lymph # (Auto) [place] # (Auto) Eos # (Auto) Baso # (Auto) Immature Gran % Nucleated RBC % Immature Gran # Nucleated RBCs # Platelet Estimate Immature Plt Fraction Anisocytosis INR PT Patient/Control Mix Circ Anticoag PTT Patient Temperature ABG pH ABG pH at Pt Temp ABG pCO2 ABG pCO2 at Pt Temp ABG pO2 ABG pO2 at Pt Temp ABG HCO3 ABG Total CO2 ABG O2 Saturation ABG Base Excess ABG Sodium VBG pH VBG pCO2 VBG pO2 VBG HCO3 VBG Total CO2 VBG O2 Saturation VBG Base Excess Hemoglobin Hematocrit Potassium Glucose Ionized Calcium FiO2 Sodium Chloride Carbon Dioxide Anion Gap BUN Creatinine GFR Calculation BUN/Creatinine Ratio POC Glucose 120 H Calculated Osmolality Lactic Acid Calcium Venous Ioniz Calcium Magnesium Urine Color Urine Appearance Urine pH Ur Specific [place] Urine Protein Urine Glucose (UA) Urine Ketones Urine Blood Urine Nitrate Urine Bilirubin Urine Urobilinogen Urine Leukocytes Urine RBC Urine WBC Urine Bacteria Hyaline Casts Urine Mucus Ur Culture Indicated? Blood Type O POSITIVE Antibody Screen Negative Crossmatch See Detail 07/31/17 07/31/17 07/31/17 12:01 13:08 13:32 WBC RBC Hgb Hct MCV MCH MCHC RDW Plt Count 117 L MPV Neut % (Auto) Lymph % (Auto) [place] % (Auto) Eos % (Auto) Baso % (Auto) Neut # (Auto) Lymph # (Auto) [place] # (Auto) Eos # (Auto) Baso # (Auto) Immature Gran % Nucleated RBC % Immature Gran # Nucleated RBCs # Platelet Estimate Immature Plt Fraction Anisocytosis INR PT Patient/Control Mix Circ Anticoag PTT Patient Temperature 37 ABG pH 7.432 ABG pH at Pt Temp 7.432 ABG pCO2 37.7 ABG pCO2 at Pt Temp 37.7 ABG pO2 410.0 H ABG pO2 at Pt Temp 410.0 ABG HCO3 25.3 ABG Total CO2 22.8 L ABG O2 Saturation 100.0 ABG Base Excess 1.0 ABG Sodium 139 VBG pH VBG pCO2 VBG pO2 VBG HCO3 VBG Total CO2 VBG O2 Saturation VBG Base Excess Hemoglobin 9.9 L Hematocrit 30.5 L Potassium 3.9 Glucose 114 H Ionized Calcium 1.13 L FiO2 Sodium Chloride Carbon Dioxide Anion Gap BUN Creatinine GFR Calculation BUN/Creatinine Ratio POC Glucose Calculated Osmolality Lactic Acid Calcium Venous Ioniz Calcium Magnesium Urine Color Yellow Urine Appearance Clear Urine pH 5.0 Ur Specific [place] 1.019 Urine Protein Negative Urine Glucose (UA) Negative Urine Ketones Negative Urine Blood Negative Urine Nitrate Negative Urine Bilirubin Negative Urine Urobilinogen < 2.0 H Urine Leukocytes Negative Urine RBC 1 Urine WBC <1 Urine Bacteria Occasional Hyaline Casts 12 Urine Mucus Occasional Ur Culture Indicated? Not indicated Blood Type Antibody Screen Crossmatch 07/31/17 07/31/17 07/31/17 14:10 15:01 15:31 WBC RBC Hgb Hct MCV MCH MCHC RDW Plt Count MPV Neut % (Auto) Lymph % (Auto) [place] % (Auto) Eos % (Auto) Baso % (Auto) Neut # (Auto) Lymph # (Auto) [place] # (Auto) Eos # (Auto) Baso # (Auto) Immature Gran % Nucleated RBC % Immature Gran # Nucleated RBCs # Platelet Estimate Immature Plt Fraction Anisocytosis INR PT Patient/Control Mix Circ Anticoag PTT Patient Temperature 37 37 37 ABG pH ABG pH at Pt Temp 7.372 7.420 7.435 ABG pCO2 ABG pCO2 at Pt Temp 48.2 42.6 40.2 ABG pO2 ABG pO2 at Pt Temp 39.8 40.6 37.4 ABG HCO3 ABG Total CO2 ABG O2 Saturation ABG Base Excess ABG Sodium 138 126 L 129 L VBG pH 7.372 7.420 7.435 VBG pCO2 48.2 42.6 40.2 L VBG pO2 39.8 40.6 H 37.4 VBG HCO3 25.8 26.6 26.4 VBG Total CO2 25.3 25.3 25.2 VBG O2 Saturation 72.0 75.3 70.8 VBG Base Excess 2.1 2.9 2.6 Hemoglobin 11.1 L 9.9 L 8.2 L Hematocrit 34.2 L 30.6 L 25.4 L Potassium 3.7 5.8 H 4.6 Glucose 146 H 507 H* 423 H Ionized Calcium FiO2 21.00 21.00 21.00 Sodium Chloride Carbon Dioxide Anion Gap BUN Creatinine GFR Calculation BUN/Creatinine Ratio POC Glucose Calculated Osmolality Lactic Acid Calcium Venous Ioniz Calcium 0.96 L 0.92 L 0.95 L Magnesium Urine Color Urine Appearance Urine pH Ur Specific [place] Urine Protein Urine Glucose (UA) Urine Ketones Urine Blood Urine Nitrate Urine Bilirubin Urine Urobilinogen Urine Leukocytes Urine RBC Urine WBC Urine Bacteria Hyaline Casts Urine Mucus Ur Culture Indicated? Blood Type Antibody Screen Crossmatch 07/31/17 07/31/17 07/31/17 15:59 16:32 18:03 WBC RBC Hgb Hct MCV MCH MCHC RDW Plt Count MPV Neut % (Auto) Lymph % (Auto) [place] % (Auto) Eos % (Auto) Baso % (Auto) Neut # (Auto) Lymph # (Auto) [place] # (Auto) Eos # (Auto) Baso # (Auto) Immature Gran % Nucleated RBC % Immature Gran # Nucleated RBCs # Platelet Estimate Immature Plt Fraction Anisocytosis INR PT Patient/Control Mix Circ Anticoag PTT Patient Temperature 37 37 ABG pH 7.371 7.400 ABG pH at Pt Temp 7.444 ABG pCO2 43.2 35.3 ABG pCO2 at Pt Temp 38.0 ABG pO2 91.2 121.1 H ABG pO2 at Pt Temp 28.1 ABG HCO3 24.5 21.4 ABG Total CO2 25.8 22.5 L ABG O2 Saturation 96.5 98.1 ABG Base Excess -0.8 -2.9 L ABG Sodium 129 L 133 L VBG pH 7.444 VBG pCO2 38.0 L VBG pO2 28.1 VBG HCO3 25.5 VBG Total CO2 26.6 VBG O2 Saturation 66.7 VBG Base Excess 1.4 Hemoglobin 8.7 L 8.1 L 10.0 L Hematocrit 26.0 L 24.0 L 29.0 L Potassium 4.7 3.7 3.4 L Glucose 347 H 311 H 342 H Ionized Calcium 1.13 L FiO2 21.00 Sodium Chloride Carbon Dioxide Anion Gap BUN Creatinine GFR Calculation BUN/Creatinine Ratio POC Glucose Calculated Osmolality Lactic Acid Calcium Venous Ioniz Calcium 0.82 Magnesium Urine Color Urine Appearance Urine pH Ur Specific [place] Urine Protein Urine Glucose (UA) Urine Ketones Urine Blood Urine Nitrate Urine Bilirubin Urine Urobilinogen Urine Leukocytes Urine RBC Urine WBC Urine Bacteria Hyaline Casts Urine Mucus Ur Culture Indicated? Blood Type Antibody Screen Crossmatch 07/31/17 07/31/17 07/31/17 18:06 18:06 18:06 WBC 18.5 H D RBC 2.72 L D Hgb 8.1 L D Hct 24.1 L MCV 88.6 MCH 30 MCHC 33.6 RDW 16.4 Plt Count 233 D MPV 11.7 Neut % (Auto) 74.8 H Lymph % (Auto) 19.3 L [place] % (Auto) 4.2 Eos % (Auto) 0.4 Baso % (Auto) 0.2 Neut # (Auto) 13.8 H Lymph # (Auto) 3.6 [place] # (Auto) 0.8 Eos # (Auto) 0.1 Baso # (Auto) 0.0 Immature Gran % 1.1 Nucleated RBC % 0.0 Immature Gran # 0.21 Nucleated RBCs # 0.00 Platelet Estimate Immature Plt Fraction 0.0 Anisocytosis INR 1.2 PT Patient/Control Mix 12.3 Circ Anticoag PTT 30.0 D Patient Temperature ABG pH ABG pH at Pt Temp ABG pCO2 ABG pCO2 at Pt Temp ABG pO2 ABG pO2 at Pt Temp ABG HCO3 ABG Total CO2 ABG O2 Saturation ABG Base Excess ABG Sodium VBG pH VBG pCO2 VBG pO2 VBG HCO3 VBG Total CO2 VBG O2 Saturation VBG Base Excess Hemoglobin Hematocrit Potassium 3.8 Glucose 365 H Ionized Calcium FiO2 Sodium 138 Chloride 101 Carbon Dioxide 23 Anion Gap 17.8 H BUN 9 Creatinine 0.90 GFR Calculation 79 BUN/Creatinine Ratio 10.00 POC Glucose Calculated Osmolality 288.7 Lactic Acid 5.6 H Calcium 8.3 L Venous Ioniz Calcium Magnesium 2.0 Urine Color Urine Appearance Urine pH Ur Specific [place] Urine Protein Urine Glucose (UA) Urine Ketones Urine Blood Urine Nitrate Urine Bilirubin Urine Urobilinogen Urine Leukocytes Urine RBC Urine WBC Urine Bacteria Hyaline Casts Urine Mucus Ur Culture Indicated? Blood Type Antibody Screen Crossmatch 07/31/17 07/31/17 08/01/17 18:35 23:30 03:00 WBC 7.8 D RBC 2.99 L Hgb 8.8 L Hct 25.7 L MCV 86.0 L MCH 29 MCHC 34.2 RDW 15.9 Plt Count 100 L D MPV 12.2 H Neut % (Auto) 83.4 H Lymph % (Auto) 11.1 L [place] % (Auto) 4.8 Eos % (Auto) 0.0 Baso % (Auto) 0.1 Neut # (Auto) 6.5 Lymph # (Auto) 0.9 L [place] # (Auto) 0.4 Eos # (Auto) 0.0 Baso # (Auto) 0.0 Immature Gran % 0.6 Nucleated RBC % 0.0 Immature Gran # 0.05 Nucleated RBCs # 0.00 Platelet Estimate Adequate Immature Plt Fraction 8.7 H Anisocytosis INR PT Patient/Control Mix Circ Anticoag PTT Patient Temperature ABG pH ABG pH at Pt Temp ABG pCO2 ABG pCO2 at Pt Temp ABG pO2 ABG pO2 at Pt Temp ABG HCO3 ABG Total CO2 ABG O2 Saturation ABG Base Excess ABG Sodium VBG pH 7.383 VBG pCO2 28.6 L VBG pO2 30.2 VBG HCO3 17.9 L VBG Total CO2 16.6 VBG O2 Saturation 52.4 VBG Base Excess -7.4 L Hemoglobin Hematocrit Potassium Glucose Ionized Calcium FiO2 21.00 Sodium Chloride Carbon Dioxide Anion Gap BUN Creatinine GFR Calculation BUN/Creatinine Ratio POC Glucose Calculated Osmolality Lactic Acid 2.7 H Calcium Venous Ioniz Calcium Magnesium Urine Color Urine Appearance Urine pH Ur Specific [place] Urine Protein Urine Glucose (UA) Urine Ketones Urine Blood Urine Nitrate Urine Bilirubin Urine Urobilinogen Urine Leukocytes Urine RBC Urine WBC Urine Bacteria Hyaline Casts Urine Mucus Ur Culture Indicated? Blood Type Antibody Screen Crossmatch 08/01/17 08/01/17 08/01/17 03:00 05:20 05:45 WBC RBC Hgb Hct MCV MCH MCHC RDW Plt Count MPV Neut % (Auto) Lymph % (Auto) [place] % (Auto) Eos % (Auto) Baso % (Auto) Neut # (Auto) Lymph # (Auto) [place] # (Auto) Eos # (Auto) Baso # (Auto) Immature Gran % Nucleated RBC % Immature Gran # Nucleated RBCs # Platelet Estimate Immature Plt Fraction Anisocytosis INR PT Patient/Control Mix Circ Anticoag PTT Patient Temperature ABG pH 7.369 7.354 ABG pH at Pt Temp ABG pCO2 41.7 43.2 ABG pCO2 at Pt Temp ABG pO2 65.3 L 77.5 L ABG pO2 at Pt Temp ABG HCO3 23.5 23.1 ABG Total CO2 24.8 22.2 L ABG O2 Saturation 91.9 L 94.1 L ABG Base Excess -1.7 -1.4 ABG Sodium VBG pH VBG pCO2 VBG pO2 VBG HCO3 VBG Total CO2 VBG O2 Saturation VBG Base Excess Hemoglobin 9.9 L 9.4 L Hematocrit 29.0 L 29.2 L Potassium 3.7 4.9 4.7 Glucose 160 H 111 H 114 H Ionized Calcium FiO2 Sodium 141 Chloride 107 Carbon Dioxide 24 Anion Gap 13.7 BUN 11 Creatinine 0.90 GFR Calculation 79 BUN/Creatinine Ratio 12.00 POC Glucose Calculated Osmolality 282.3 Lactic Acid Calcium 7.8 L Venous Ioniz Calcium Magnesium 2.5 H Urine Color Urine Appearance Urine pH Ur Specific [place] Urine Protein Urine Glucose (UA) Urine Ketones Urine Blood Urine Nitrate Urine Bilirubin Urine Urobilinogen Urine Leukocytes Urine RBC Urine WBC Urine Bacteria Hyaline Casts Urine Mucus Ur Culture Indicated? Blood Type Antibody Screen Crossmatch 08/01/17 08/01/17 07:35 09:17 WBC RBC Hgb Hct MCV MCH MCHC RDW Plt Count MPV Neut % (Auto) Lymph % (Auto) [place] % (Auto) Eos % (Auto) Baso % (Auto) Neut # (Auto) Lymph # (Auto) [place] # (Auto) Eos # (Auto) Baso # (Auto) Immature Gran % Nucleated RBC % Immature Gran # Nucleated RBCs # Platelet Estimate Immature Plt Fraction Anisocytosis INR PT Patient/Control Mix Circ Anticoag PTT Patient Temperature ABG pH 7.375 ABG pH at Pt Temp ABG pCO2 42.0 ABG pCO2 at Pt Temp ABG pO2 85.1 ABG pO2 at Pt Temp ABG HCO3 23.9 ABG Total CO2 22.6 L ABG O2 Saturation 96.1 ABG Base Excess -0.6 ABG Sodium VBG pH VBG pCO2 VBG pO2 VBG HCO3 VBG Total CO2 VBG O2 Saturation VBG Base Excess Hemoglobin 9.5 L Hematocrit 29.3 L Potassium 4.7 Glucose 103 Ionized Calcium FiO2 Sodium Chloride Carbon Dioxide Anion Gap BUN Creatinine GFR Calculation BUN/Creatinine Ratio POC Glucose 115 H Calculated Osmolality Lactic Acid Calcium Venous Ioniz Calcium Magnesium Urine Color Urine Appearance Urine pH Ur Specific [place] Urine Protein Urine Glucose (UA) Urine Ketones Urine Blood Urine Nitrate Urine Bilirubin Urine Urobilinogen Urine Leukocytes Urine RBC Urine WBC Urine Bacteria Hyaline Casts Urine Mucus Ur Culture Indicated? Blood Type Antibody Screen Crossmatch Quality Measures - VTE Contraindication to Pharmacological VTE Prophylaxis: Active Bleeding
[2017-08-01] MEDS: CLOPIDOGREL 75 MG TABLET PO SCH (11:55)
[2017-08-01] MEDS: ALBUTEROL/IPRATROPIUM 3 ML NEB RESP TX SCH ×2 (14:49→19:39)
[2017-08-01 16:48] LABS: ABG Base Excess 0.4 MMOL/L (-2.5-2.5); ABG HCO3 24.8 MMOL/L (20-26); ABG Oxygen Saturation 92.6 % (95-100); ABG PH 7.422 (7.35-7.45); ABG PO2 64.6 MM HG (80-95); Glucose Heart Surgery 191 MG/DL (74-106); Hemoglobin Heart Surgery 9.2 G/DL (12.0-16.0); Potassium Heart/CVR 4.3 MMOL/L (3.5-5.1)
[2017-08-01] MEDS: ATORVASTATIN 40 MG TABLET PO SCH ×2 (17:06→21:25)
[2017-08-01] MEDS ORDERED: FUROSEMIDE 40 MG TABLET PO SCH (18:03)
[2017-08-01] MEDS ORDERED: KETOROLAC 30 MG/1 ML VIAL IV ONE (19:27)
[2017-08-01] MEDS: PHENYLEPHRINE DRIP 40 MG/250 ML PREMIX IV SCH (23:12)
[2017-08-01] MEDS: KETOROLAC 15 MG/1 ML VIAL IV PRN (23:13)
[2017-08-01] MEDS: ALBUMIN 5% 12.5 GM in PREMIX 1 EACH IV PRN (23:45)
[2017-08-02] MEDS: ALBUTEROL/IPRATROPIUM 3 ML NEB RESP TX SCH ×7 (00:01→22:48)
[2017-08-02] MEDS: CEFUROXIME INJ 1,500 MG in SODIUM CHLORIDE 0.9% 100 ML IV SCH (02:11)
[2017-08-02 03:19] LABS: Basophils % 0.2 % (0.0-0.8); Eosinophils % 0.3 % (0.00-10.9); Hematocrit 22.9 VOL% (35.7-47.0); Hemoglobin 7.6 GM/DL (12.0-16.0); Immature Granulocytes % 0.5 %; Immature Granulocytes Absolute 0.03 #; Lymphocytes # 1.3 10*3/uL (1.4-4.0); Lymphocytes % 20.3 % (21.3-54.2); Mean Corpuscular HGB Conc 33.2 GM/DL (32-36); Mean Corpuscular Hemoglobin 30 PG (27-34); Mean Corpuscular Volume 89.5 FL (87-102); Monocytes # 0.4 10*3/uL (0.11-0.8); Monocytes % 6.2 % (1.7-12.7); Neutrophils # 4.6 10*3/uL (1.4-7.4); Neutrophils % 72.5 % (38.7-73.9); Red Blood Count 2.56 MC/CUMM (3.8-5.5); Red Cell Distribution Width 17.1 % (9.3-17.3); White Blood Count 6.3 T/CUMM (4-12)
[2017-08-02 03:45] LABS: Calcium 7.5 MG/DL (8.5-10.1); Magnesium 2.3 MG/DL (1.8-2.4); Osmolality,Calculated 287.3 MOS/KG (273-304); Potassium 4.4 MMOL/L (3.5-5.1)
[2017-08-02 03:58] LABS: Platelet Count 91 T/CUMM (130-400)
[2017-08-02] MEDS: MORPHINE 2 MG/1 ML SYRINGE IV PRN ×3 (04:10→13:33)
[2017-08-02] MEDS: POTASSIUM CHLORIDE RIDER 20 MEQ in PREMIX 1 EACH IV PRN (04:11)
[2017-08-02] MEDS: MAGNESIUM SULF RIDER 2 GM in PREMIX 1 EACH IV PRN (04:43)
--- NOTE | 2017-08-02 08:11 | Cardiology Progress Note ---
Assessment and Plan (1) CAD (coronary artery disease) Status: Chronic Current Visit: Yes (2) Hypertension Status: Chronic Current Visit: Yes (3) Dyslipidemia Status: Chronic Current Visit: Yes (4) Former tobacco use Status: Chronic Current Visit: Yes (5) Hx of CABG Status: Chronic Current Visit: Yes (6) Depression Status: Chronic Current Visit: Yes (7) Diabetes Status: Chronic Current Visit: Yes Cardiology - PN: Subj Interval history: Cardiology note Postop day #2 redo two-vessel CABG with vein graft to LAD and vein graft to distal circumflex. Preop EF 55%. Incision a little tender. Telemetry shows sinus rhythm in the 80s O2 sat 95 on 4 L cannula Blood pressure 108/50 100 cc drainage from the mediastinal tube the last 24 hours Regular rhythm no murmur or rub Decreased breath sounds with weak inspiratory effort Abdomen benign Trace leg edema Lab data White count 6.3 hemoglobin 7.6 hematocrit 22.9 Sodium 141 potassium 4.4 chloride 106 CO2 27 BUN 19 creatinine 1.0 Glucose 190 magnesium 2.3 Impression Postop day #2 redo two-vessel CABG vein graft to LAD and vein graft distal circumflex. Preop EF 55% Longtime diabetic Status post two-vessel CABG February 2011 Obesity Hyperlipidemia Hypertension Tobacco abuse in remission Plan Hopefully remove mediastinal tube today Coreg 3.125 mg twice daily Exam (Progress Note) - Constitutional Vitals: Period Temp Pulse Resp BP Sys/Haas Pulse Ox Last 24 Hr 98.2 F-99.9 F 77-90 10-25 85-128/37-56 85-100 Result/EKG - Labs CBC & BMP: 08/02/17 03:00 08/02/17 03:00 Labs: Laboratory Results - last 24 hr 07/29/17 08/01/17 08/01/17 16:54 09:17 11:21 WBC RBC Hgb Hct MCV MCH MCHC RDW Plt Count MPV Neut % (Auto) Lymph % (Auto) [place] % (Auto) Eos % (Auto) Baso % (Auto) Neut # (Auto) Lymph # (Auto) [place] # (Auto) Eos # (Auto) Baso # (Auto) Immature Gran % Nucleated RBC % Immature Gran # Nucleated RBCs # Immature Plt Fraction Morphology Comment ABG pH ABG pCO2 ABG pO2 ABG HCO3 ABG Total CO2 ABG O2 Saturation ABG Base Excess Hemoglobin Hematocrit Potassium Glucose Sodium Chloride Carbon Dioxide Anion Gap BUN Creatinine GFR Calculation BUN/Creatinine Ratio POC Glucose 115 H 181 H Calculated Osmolality Calcium Magnesium Crossmatch See Detail 08/01/17 08/01/17 08/02/17 16:39 20:14 03:00 WBC 6.3 RBC 2.56 L Hgb 7.6 L Hct 22.9 L MCV 89.5 MCH 30 MCHC 33.2 RDW 17.1 Plt Count 91 L MPV 12.0 Neut % (Auto) 72.5 Lymph % (Auto) 20.3 L [place] % (Auto) 6.2 Eos % (Auto) 0.3 Baso % (Auto) 0.2 Neut # (Auto) 4.6 Lymph # (Auto) 1.3 L [place] # (Auto) 0.4 Eos # (Auto) 0.0 Baso # (Auto) 0.0 Immature Gran % 0.5 Nucleated RBC % 0.0 Immature Gran # 0.03 Nucleated RBCs # 0.00 Immature Plt Fraction 8.2 H Morphology Comment ABG pH 7.422 ABG pCO2 39.0 ABG pO2 64.6 L ABG HCO3 24.8 ABG Total CO2 26.0 ABG O2 Saturation 92.6 L ABG Base Excess 0.4 Hemoglobin 9.2 L Hematocrit 27.0 L Potassium 4.3 Glucose 191 H Sodium Chloride Carbon Dioxide Anion Gap BUN Creatinine GFR Calculation BUN/Creatinine Ratio POC Glucose 223 H Calculated Osmolality Calcium Magnesium Crossmatch 08/02/17 08/02/17 03:00 07:44 WBC RBC Hgb Hct MCV MCH MCHC RDW Plt Count MPV Neut % (Auto) Lymph % (Auto) [place] % (Auto) Eos % (Auto) Baso % (Auto) Neut # (Auto) Lymph # (Auto) [place] # (Auto) Eos # (Auto) Baso # (Auto) Immature Gran % Nucleated RBC % Immature Gran # Nucleated RBCs # Immature Plt Fraction Morphology Comment ABG pH ABG pCO2 ABG pO2 ABG HCO3 ABG Total CO2 ABG O2 Saturation ABG Base Excess Hemoglobin Hematocrit Potassium 4.4 Glucose 190 H Sodium 141 Chloride 106 Carbon Dioxide 27 Anion Gap 12.4 BUN 19 H Creatinine 1.00 GFR Calculation 70 BUN/Creatinine Ratio 19.00 POC Glucose 237 H Calculated Osmolality 287.3 Calcium 7.5 L Magnesium 2.3 Crossmatch Quality Measures - VTE Contraindication to Pharmacological VTE Prophylaxis: Active Bleeding
[2017-08-02] MEDS: INSULIN REGULAR 100 UNIT/ML SUBCUT SCH ×4 (08:44→21:08)
[2017-08-02] MEDS: KETOROLAC 15 MG/1 ML VIAL IV PRN ×2 (08:45→20:29)
[2017-08-02] MEDS: CARVEDILOL 3.125 MG TABLET PO SCH ×2 (08:45→20:29)
[2017-08-02] MEDS: ASPIRIN EC 325 MG TABLET PO SCH (08:45)
[2017-08-02] MEDS: CLOPIDOGREL 75 MG TABLET PO SCH (08:45)
[2017-08-02] MEDS: CHLORHEXIDINE 0.12% ORAL RINSE 60 ML BOTTLE SWISH/SPIT SCH ×2 (08:47→20:33)
[2017-08-02] MEDS ORDERED: SODIUM CHLORIDE 0.9% 250 ML IV PRN (09:18)
--- NOTE | 2017-08-02 09:56 | Cardiothoracic Progress Note ---
Assessment and Plan (1) CAD (coronary artery disease) Status: Chronic Assessment and plan: Postoperative day 2 status post redo CABG 2. She is awake alert oriented 3. I will remove the chest tubes. She is hemodynamically stable, transferred to telemetry u. Urine looks cloudy we will send a urinalysis and urine culture , INDIGO Pelaez, give 2 units of packed RBCs due to dilutional anemia accompanied with 40 of Lasix IV once. Current Visit: Yes (2) Hx of CABG Status: Chronic Current Visit: Yes Exam (Progress Note) - Constitutional Vitals: Period Temp Pulse Resp BP Sys/Haas Pulse Ox Last 24 Hr 98.2 F-99.9 F 78-92 10-25 85-128/37-56 85-100 Result/EKG - Labs CBC & BMP: 08/02/17 03:00 08/02/17 03:00 Labs: Laboratory Results - last 24 hr 07/29/17 08/01/17 08/01/17 16:54 11:21 16:39 WBC RBC Hgb Hct MCV MCH MCHC RDW Plt Count MPV Neut % (Auto) Lymph % (Auto) [place] % (Auto) Eos % (Auto) Baso % (Auto) Neut # (Auto) Lymph # (Auto) [place] # (Auto) Eos # (Auto) Baso # (Auto) Immature Gran % Nucleated RBC % Immature Gran # Nucleated RBCs # Immature Plt Fraction Morphology Comment ABG pH 7.422 ABG pCO2 39.0 ABG pO2 64.6 L ABG HCO3 24.8 ABG Total CO2 26.0 ABG O2 Saturation 92.6 L ABG Base Excess 0.4 Hemoglobin 9.2 L Hematocrit 27.0 L Potassium 4.3 Glucose 191 H Sodium Chloride Carbon Dioxide Anion Gap BUN Creatinine GFR Calculation BUN/Creatinine Ratio POC Glucose 181 H Calculated Osmolality Calcium Magnesium Crossmatch See Detail 08/01/17 08/02/17 08/02/17 20:14 03:00 03:00 WBC 6.3 RBC 2.56 L Hgb 7.6 L Hct 22.9 L MCV 89.5 MCH 30 MCHC 33.2 RDW 17.1 Plt Count 91 L MPV 12.0 Neut % (Auto) 72.5 Lymph % (Auto) 20.3 L [place] % (Auto) 6.2 Eos % (Auto) 0.3 Baso % (Auto) 0.2 Neut # (Auto) 4.6 Lymph # (Auto) 1.3 L [place] # (Auto) 0.4 Eos # (Auto) 0.0 Baso # (Auto) 0.0 Immature Gran % 0.5 Nucleated RBC % 0.0 Immature Gran # 0.03 Nucleated RBCs # 0.00 Immature Plt Fraction 8.2 H Morphology Comment ABG pH ABG pCO2 ABG pO2 ABG HCO3 ABG Total CO2 ABG O2 Saturation ABG Base Excess Hemoglobin Hematocrit Potassium 4.4 Glucose 190 H Sodium 141 Chloride 106 Carbon Dioxide 27 Anion Gap 12.4 BUN 19 H Creatinine 1.00 GFR Calculation 70 BUN/Creatinine Ratio 19.00 POC Glucose 223 H Calculated Osmolality 287.3 Calcium 7.5 L Magnesium 2.3 Crossmatch 08/02/17 07:44 WBC RBC Hgb Hct MCV MCH MCHC RDW Plt Count MPV Neut % (Auto) Lymph % (Auto) [place] % (Auto) Eos % (Auto) Baso % (Auto) Neut # (Auto) Lymph # (Auto) [place] # (Auto) Eos # (Auto) Baso # (Auto) Immature Gran % Nucleated RBC % Immature Gran # Nucleated RBCs # Immature Plt Fraction Morphology Comment ABG pH ABG pCO2 ABG pO2 ABG HCO3 ABG Total CO2 ABG O2 Saturation ABG Base Excess Hemoglobin Hematocrit Potassium Glucose Sodium Chloride Carbon Dioxide Anion Gap BUN Creatinine GFR Calculation BUN/Creatinine Ratio POC Glucose 237 H Calculated Osmolality Calcium Magnesium Crossmatch Quality Measures - VTE Contraindication to Pharmacological VTE Prophylaxis: Active Bleeding
--- NOTE | 2017-08-02 10:13 | XRay Report ---
Portable chest August 02, 2017 at 0928 hours Indication: Shortness of breath, chest tube removal Comparison: July 02, 2017 at 0326 hours Findings: Cardiomediastinal contours are stable with underlying cardiomegaly and sternotomy wires at midline. Mediastinal and right pleural drains have been removed. No change in the mild interstitial edema pattern or bilateral pleural effusions, right greater than left. No acute osseous abnormalities. Remaining tubes and lines are unchanged. Visualized upper abdomen is grossly unremarkable Impression: Interval mediastinal and right chest tube removal with stable interstitial edema pattern and bilateral pleural effusions PROCEDURE INTERPRETED AT [facility] DEPARTMENT OF RADIOLOGY Final Report Signed by: Prasanna Braden
--- NOTE | 2017-08-02 11:24 | XRay Report ---
Portable chest August 02, 2017 Indication postop post tube removal Comparison images from previous day at 0249 hours Findings: Interval extubation and removal of the [place] catheter and nasogastric tube. Remaining tubes and lines are unchanged. Low lung volumes with bibasilar atelectasis and slightly worsened pleural effusions, right greater than left. No acute osseous abnormalities. Visualized upper abdomen is unremarkable. Impression: 1. Uncomplicated extubation and removal of [place]iel[place] catheter and esophageal gastric tube 2. Slight worsening of the bibasilar atelectasis and effusions PROCEDURE INTERPRETED AT [facility] DEPARTMENT OF RADIOLOGY Final Report Signed by: Prasanna Braden
[2017-08-02] MEDS ORDERED: FUROSEMIDE 40 MG/4 ML VIAL IV ONE (12:00)
[2017-08-02 13:27] LABS: Amorphous Crystals,Urine Moderate /HPF (Few); Apearance,Urine CLOUDY (Clear); Bilirubin,Urine Negative (Negative); Blood, Urine Negative (Negative); Glucose,Urine (UA) 50 mg/dL (Negative); Ketones,Urine Negative (Negative); Mucus,Urine Occasional /LPF (Occasional); Nitrite,Urine Negative (Negative); Protein,Urine Negative; Urine Color Amber (Yellow); Urine Specific Gravity 1.024 (1.001-1.035); Urine Urobilinogen 0.2 EU/DL (0.2-1.0)
[2017-08-02] MEDS: SODIUM CHLORIDE 0.45% 1,000 ML IV SCH (17:36)
[2017-08-02 18:10] LABS: Hematocrit 31.8 VOL% (35.7-47.0); Hemoglobin 10.7 GM/DL (12.0-16.0)
[2017-08-02] MEDS: ATORVASTATIN 40 MG TABLET PO SCH (20:29)
[2017-08-03] MEDS: ALBUTEROL/IPRATROPIUM 3 ML NEB RESP TX SCH ×6 (02:33→23:52)
[2017-08-03 05:14] LABS: Basophils % 0.1 % (0.0-0.8); Eosinophils # 0.1 10*3/uL (0.0-0.87); Eosinophils % 0.6 % (0.00-10.9); Hematocrit 31.3 VOL% (35.7-47.0); Hemoglobin 10.4 GM/DL (12.0-16.0); Immature Granulocytes % 0.5 %; Immature Granulocytes Absolute 0.04 #; Lymphocytes # 1.1 10*3/uL (1.4-4.0); Lymphocytes % 13.7 % (21.3-54.2); Mean Corpuscular HGB Conc 33.2 GM/DL (32-36); Mean Corpuscular Hemoglobin 30 PG (27-34); Mean Corpuscular Volume 89.2 FL (87-102); Mean Platelet Volume 12.2 FL (9.6-12.0); Monocytes # 0.4 10*3/uL (0.11-0.8); Monocytes % 5.5 % (1.7-12.7); Neutrophils # 6.4 10*3/uL (1.4-7.4); Neutrophils % 79.6 % (38.7-73.9); Platelet Count 99 T/CUMM (130-400); Red Blood Count 3.51 MC/CUMM (3.8-5.5); Red Cell Distribution Width 15.9 % (9.3-17.3)
[2017-08-03 05:42] LABS: Calcium 8.1 MG/DL (8.5-10.1); Magnesium 2.6 MG/DL (1.8-2.4); Osmolality,Calculated 280.8 MOS/KG (273-304)
[2017-08-03 05:55] LABS: Band Neutrophils 1 % (0-10); Eosinophils 2 % (0-10); Hypochromasia 1+; Lymphocytes 12 % (20-55); Segmented Neutrophils 80 % (50-85); Total Cells Counted 100
[2017-08-03 05:56] LABS: Microcytosis 1+; Ovalocytes Slight; Platelet Estimate Decreased
[2017-08-03] MEDS: CLOPIDOGREL 75 MG TABLET PO SCH (08:24)
[2017-08-03] MEDS: CARVEDILOL 3.125 MG TABLET PO SCH ×2 (08:24→20:35)
[2017-08-03] MEDS: ASPIRIN EC 325 MG TABLET PO SCH (08:24)
[2017-08-03] MEDS: CHLORHEXIDINE 0.12% ORAL RINSE 60 ML BOTTLE SWISH/SPIT SCH ×2 (08:25→20:36)
[2017-08-03] MEDS: INSULIN REGULAR 100 UNIT/ML SUBCUT SCH ×4 (08:25→20:35)
[2017-08-03] MEDS: KETOROLAC 15 MG/1 ML VIAL IV PRN ×2 (08:31→17:39)
--- NOTE | 2017-08-03 10:11 | Hospitalist Consult Note ---
<Naina Talamantes - Last Filed: 08/03/17 10:30> Assessment and Plan - Time spent with patient Time spent with patient: Greater than 30 minutes (1) CAD (coronary artery disease) Status: Chronic Assessment and plan: 47-year-old female with history of hypertension, dyslipidemia, obesity, CAD with previous CABG, and diabetes now POD2 redo CABG 2 with right saphenous vein graft to the LAD and distal circumflex artery. Hospitalist has been consulted for medical management. Will order a hemoglobin A1c and restart her Lantus and metformin. She is also on sliding scale insulin as well. Dr. Collazo will see and examine patient and further recommendations to follow. Current Visit: Yes (2) Hypertension Status: Chronic Current Visit: Yes (3) Dyslipidemia Status: Chronic Current Visit: Yes (4) Former tobacco use Status: Chronic Current Visit: Yes (5) Diabetes Status: Chronic Current Visit: Yes (6) S/P CABG x 2 Status: Acute Current Visit: Yes History of Present Illness - Data of Consult Patient: new to practice - Consult Narrative History of present illness: Ms. Rapp is a 47 year old female CC: Corina Riggs, DO - Home Medications and Allergies Home Medications: Home Medications Medication Instructions Recorded Confirmed Type Aspirin EC Tab 81 mg PO DAILY 04/30/15 07/28/17 History Clopidogrel Bisulfate [Plavix] 75 mg PO DAILY 04/30/15 07/28/17 History Glipizide [Glipizide ER] 2.5 mg PO DAILY 04/30/15 07/28/17 History Pregabalin [Lyrica] 75 mg PO TID 04/30/15 07/28/17 History Sertraline [Zoloft] 100 mg PO BID 04/30/15 07/28/17 History metFORMIN [Glucophage] 850 mg PO TID W/MEALS 04/30/15 07/28/17 History Insulin Glargine [Lantus] 60 units SUBCUT DAILY 07/28/17 07/28/17 History Losartan Potassium 12.5 mg PO DAILY 07/28/17 07/28/17 History Magnesium 250 mg PO DAILY 07/28/17 07/28/17 History Rosuvastatin [Crestor] 20 mg PO DAILY 07/28/17 07/28/17 History Allergies/Adverse Reactions: Allergies Allergy/AdvReac Type Severity Reaction Status Date / Time No Known Allergies Allergy Verified 07/28/17 10:11 12 point system: reviewed and no additional remarkable complaints except as stated Exam - Constitutional Vitals: Period Temp Pulse Resp BP Sys/Haas Pulse Ox Last 24 Hr 96.5 F-99.5 F 80-95 16-24 97-152/40-72 94-100 Results - Labs CBC & BMP: 08/03/17 04:40 08/03/17 04:40 <White,Moni R - Last Filed: 08/03/17 12:26> Assessment and Plan (1) S/P CABG x 2 Status: Acute Assessment and plan: Dr Alvarenga managing Current Visit: Yes (2) Diabetes Status: Chronic Assessment and plan: hgb A1c, lantus and metformin restarted Current Visit: Yes History of Present Illness - Data of Consult Consult date: 08/03/17 Requesting Physician: Andrey Alvarenga - Consult Narrative Reason for consult: Uncontrolled bs History of present illness: Ms. Rapp is a 47 year old female with past medical history of hypertension, dyslipidemia, obesity, family history of premature CAD, previous personal history of CAD. She has been a diabetic for 25 years. She is a former smoker, and she quit smoking after her bypass surgery in 2009. Patient is status post coronary artery bypass grafting [address] Marin with MIKEY to LAD, SVG to PDA, and SVG to diagonal. Since then, she has required PCI of the left circumflex but most recent heart catheterization on April 08, 2014, showed widely patent circumflex stent previously placed, and the MIKEY to LAD was not injected as it was known to be very atretic and not contributory to ventricular myocardial flow. SVG to diagonal had a very small nikolski vessel stenosis at that time was not felt to be significant. Vein graft to the PDA was widely patent. She was seen earlier this morning by Dr. Riggs in clinic with exertion chest pain, was extremely anxious and hyperventilating, and was very concerned that she has ongoing coronary artery disease. Patient is now admitted for left heart catheterization and revascularization if able. Myocardial perfusion SPECT scan on July 17 suggestive of single-vessel disease , EF 70%. Heart cath on 07/28/17 Increased LVEDP 35, Ejection fraction 55% with no wall motion abnormalities, No mitral regurgitation, No aortic valve gradient , Left main trunk-70% ostial stenosis, LAD-50-60 % proximal stenosis and 90% stenosis in the mid segment after the touchdown of the GUARDADO graft, Diagonal- occluded proximally, Circumflex-long percent mid vessel stenosis after OM1 takeoff, Dominant right coronary-100% mid occlusion, SVG to PDAwidely patent with 80% stenosis beyond the graft insertion site, SVG to diagonal-widely patent , GUARDADO to LAD-99% stenosis at the distal anastomosis. Patient underwent CABG by Rolando Rick on July 31, 2017 and had a redo CABG 2 including the saphenous vein graft to the LAD and a saphenous vein graft to the distal circumflex artery. Patient is diabetic and we are asked to manage her uncontrolled blood sugars. CC: Corina Riggs, DO Medical,Surgical,& Family Hx - Medical History Cardio: History of: CAD, [place] (approx > than 7 years ago), Cardiovascular Problems No history of: Aneurysm, Cardiac Dysrhythmia, Cerebrovascular Disease, Congenital Heart Disease, CHF, Hypertension, Pacemaker, PVD, Valvular Heart Disease Psychological: History of: Depression ("after open heart surgery" describes as "better") Neurology: History of: Peripheral Neuropathy HEENT: History of: Eye Problem ("bleeders", wears glasses) Endocrine: History of: Diabetes Mellitus (IDDM), Dyslipidemia No history of: Thyroid Disorder Rheumatology: No history of;: Fibromyalgia, Gout, Psoriasis, Sjogrens Renal: No history of: Renal Failure Genitourinary: No history of: Bladder Problem Gastrointestinal: History of: GI Problems (states "chronic loose stools") No history of: GERD, Gastrointestinal Bleed, Hepatitis Musculoskeletal: History of: Back/Neck Problems, Degenerative Disk Disease ( "lower back"), Herniated Disk (2-3 lower back"), Musculoskeletal Problems Hematology: No history of: Blood Transfusion Reaction Reproductive: History of: Reproductive Problems ("went throught mind[facility] at age 15") No history of: Abnormal Pap Smear Other: History of: Skin Problems ("skin cancer left chest" removed approx 1-2 months ago) No history of: Anesthesia Reactions, Anaphylaxis, Cancer, Eczema, HIV, Malignant Hyperthermia, MRSA - Surgical History Cardiac Surgeries: Sugical HX of: Cardiac Catheterization (1st one approx 2009, 2nd cath approx 2011 with stent placement x 2), Cardiac Surgery (3 vessel cabg in 2009) Patient Denies: Femoral-Popliteal Bypass Graft, Carotid Endarterectomy, Internal Defibrillator, Vascular Access Devices Thoracic Surgeries: Patient denies;: Organ Transplant, Lobectomy Neurologic Surgeries: Patient denies: Neurologic Surgery HEENT Surgeries: Patient denies: Carotid Endarterectomy, Eye Surgery, Tonsilectomy & Adenoidectomy Abdominal Surgeries: Surgical HX of: Colonoscopy (3-4 years ago), EGD (3-4 years ago) Patient denies: Gastric Bypass Surgery, Splenectomy Reproductive Surgeries: Patient denies;: Genitourinary Surgery, Gynecologic Surgery - Family History Family History: Reports;: Family Cancer (maternal grandmother), Family Diabetes (maternal grandmother), Family Heart Disease (father at age 45 of [place]), Family Hypertension (Father's side) Denies;: Family Psychiatric Problems, Family Stroke, Additional Family History - Social History Smoking Status: Never smoker Frequency of Alcohol Use: None Type of Drug Use: None Marital Status: Lives With:: Spouse Functional capacity: independent ambulation - Constitutional Constitutional: Present: fatigue. Absent: fever(s) - Cardiovascular Cardiovascular: Present: chest pain at rest, chest pain with activity, dyspnea, dyspnea on exertion. Absent: edema - Respiratory Respiratory: Present: dyspnea, dyspnea on exertion - Gastrointestinal Gastrointestinal: Present: constipation. Absent: abdominal pain, nausea, vomiting - Neurological Neurological: Absent: confusion - Psychiatric Psychiatric: Present: depression - Endocrine Endocrine: Present: fatigue Exam - Constitutional Vitals: Period Temp Pulse Resp BP Sys/Haas Pulse Ox Last 24 Hr 96.5 F-99.5 F 80-95 16-24 97-152/40-72 94-100 General appearance: normal weight, no acute distress - Respiratory Respiratory exam: Present: decreased breath sounds, rales - Cardiovascular Cardiovascular exam: Present: regular rate and rhythm. Absent: systolic murmur - GI/Abdominal GI/Abdominal exam: Present: hypoactive bowel sounds, soft. Absent: tenderness - Extremities Exam Extremities exam: Present: normal capillary refill, edema - Neurological Exam Neurological exam: Present: alert, oriented X3 - Psychiatric Psychiatric exam: Present: depressed, flat affect Results - Labs CBC & BMP: 08/03/17 04:40 08/03/17 04:40 Lab Results: I have reviewed the past 24 hour labs - Diagnostic Findings Procedure: Chest x-ray: report reviewed by me (Worsening pulmonary edema) Quality Measures - VTE Contraindication to Pharmacological VTE Prophylaxis: Active Bleeding
--- NOTE | 2017-08-03 10:11 | XRay Report ---
Portable chest August 03, 2017 at 0630 hours Indication: Difficulty breathing Comparison images from previous day at 0928 hours Findings: Cardiomediastinal contours are stable with underlying cardiomegaly. Progressing interstitial edema pattern. Bibasilar atelectasis with effusions, increasing on the right. No acute osseous abnormalities. Tubes and lines are unchanged in position. Impression: 1. Worsening pulmonary edema pattern and right pleural effusion PROCEDURE INTERPRETED AT [facility] DEPARTMENT OF RADIOLOGY Final Report Signed by: Prasanna Braden
--- NOTE | 2017-08-03 10:55 | Cardiology Progress Note ---
Assessment and Plan (1) CAD (coronary artery disease) Status: Chronic Current Visit: Yes (2) Hypertension Status: Chronic Current Visit: Yes (3) Dyslipidemia Status: Chronic Current Visit: Yes (4) Former tobacco use Status: Chronic Current Visit: Yes (5) Hx of CABG Status: Chronic Current Visit: Yes (6) Depression Status: Chronic Current Visit: Yes (7) Diabetes Status: Chronic Current Visit: Yes Cardiology - PN: Subj Interval history: Cardiology note Postop day #3 redo two-vessel CABG with vein graft to LAD and vein graft to distal circumflex. Preop EF 55%. Telemetry shows sinus rhythm in the 80s O2 sat 98 on 5 L cannula. Appetite fair. Blood pressure 150/74 Regular rhythm no murmur or gallop Incision looks good Decreased breath sounds with weak inspiratory effort. Does poorly with spirometry. Lab data today White count 8.0 hemoglobin 10.4 hematocrit 31.3 Sodium 137 potassium 4.0 chloride 102 CO2 29 BUN 18 creatinine 0.90 Glucose 202 magnesium 2.6 Impression Postop day #3 redo two-vessel CABG with vein graft to LAD and vein graft to circumflex preop EF 55% Longtime diabetes Status post three-vessel CABG February 2011 Obesity Hyperlipidemia Hypertension Tobacco abuse in remission Plan Encourage spirometry Ambulate and monitor Coreg 3.125 mg twice daily Begin lisinopril 2.5 mg twice daily Duo nebs Continue atorvastatin 40 mg daily Exam (Progress Note) - Constitutional Vitals: Period Temp Pulse Resp BP Sys/Haas Pulse Ox Last 24 Hr 96.5 F-99.5 F 80-95 16-24 97-152/40-72 94-100 Result/EKG - Labs CBC & BMP: 08/03/17 04:40 08/03/17 04:40 Labs: Laboratory Results - last 24 hr 07/29/17 08/02/17 08/02/17 16:54 04:00 09:43 WBC RBC Hgb Hct MCV MCH MCHC RDW Plt Count MPV Neut % (Auto) Lymph % (Auto) [place] % (Auto) Eos % (Auto) Baso % (Auto) Neut # (Auto) Lymph # (Auto) [place] # (Auto) Eos # (Auto) Baso # (Auto) Total Counted Immature Gran % Nucleated RBC % Immature Gran # Segmented Neutrophils Band Neutrophils Lymphocytes Monocytes Eosinophils Nucleated RBCs # Platelet Estimate Immature Plt Fraction Hypochromasia Microcytosis Ovalocytes Sodium Potassium Chloride Carbon Dioxide Anion Gap BUN Creatinine GFR Calculation BUN/Creatinine Ratio Glucose POC Glucose Hemoglobin A1c Calculated Osmolality Calcium Magnesium Urine Color Cherelle Urine Appearance Cloudy Urine pH 5.0 Ur Specific [place] 1.024 Urine Protein Negative Urine Glucose (UA) 50 Urine Ketones Negative Urine Blood Negative Urine Nitrate Negative Urine Bilirubin Negative Urine Urobilinogen 0.2 Urine Leukocytes Negative Amorphous Crystals Moderate Urine Mucus Occasional Ur Culture Indicated? Not indicated Blood Type O POSITIVE Antibody Screen Negative Crossmatch See Detail See Detail 08/02/17 08/02/17 08/02/17 11:37 12:27 15:54 WBC RBC Hgb Hct MCV MCH MCHC RDW Plt Count MPV Neut % (Auto) Lymph % (Auto) [place] % (Auto) Eos % (Auto) Baso % (Auto) Neut # (Auto) Lymph # (Auto) [place] # (Auto) Eos # (Auto) Baso # (Auto) Total Counted Immature Gran % Nucleated RBC % Immature Gran # Segmented Neutrophils Band Neutrophils Lymphocytes Monocytes Eosinophils Nucleated RBCs # Platelet Estimate Immature Plt Fraction Hypochromasia Microcytosis Ovalocytes Sodium Potassium Chloride Carbon Dioxide Anion Gap BUN Creatinine GFR Calculation BUN/Creatinine Ratio Glucose POC Glucose 286 H 276 H 356 H Hemoglobin A1c Calculated Osmolality Calcium Magnesium Urine Color Urine Appearance Urine pH Ur Specific [place] Urine Protein Urine Glucose (UA) Urine Ketones Urine Blood Urine Nitrate Urine Bilirubin Urine Urobilinogen Urine Leukocytes Amorphous Crystals Urine Mucus Ur Culture Indicated? Blood Type Antibody Screen Crossmatch 08/02/17 08/02/17 08/03/17 18:04 20:45 04:38 WBC RBC Hgb 10.7 L D Hct 31.8 L MCV MCH MCHC RDW Plt Count MPV Neut % (Auto) Lymph % (Auto) [place] % (Auto) Eos % (Auto) Baso % (Auto) Neut # (Auto) Lymph # (Auto) [place] # (Auto) Eos # (Auto) Baso # (Auto) Total Counted Immature Gran % Nucleated RBC % Immature Gran # Segmented Neutrophils Band Neutrophils Lymphocytes Monocytes Eosinophils Nucleated RBCs # Platelet Estimate Immature Plt Fraction Hypochromasia Microcytosis Ovalocytes Sodium Potassium Chloride Carbon Dioxide Anion Gap BUN Creatinine GFR Calculation BUN/Creatinine Ratio Glucose POC Glucose 381 H Hemoglobin A1c 7.5 H Calculated Osmolality Calcium Magnesium Urine Color Urine Appearance Urine pH Ur Specific [place] Urine Protein Urine Glucose (UA) Urine Ketones Urine Blood Urine Nitrate Urine Bilirubin Urine Urobilinogen Urine Leukocytes Amorphous Crystals Urine Mucus Ur Culture Indicated? Blood Type Antibody Screen Crossmatch 08/03/17 08/03/17 08/03/17 04:40 04:40 07:17 WBC 8.0 RBC 3.51 L D Hgb 10.4 L Hct 31.3 L MCV 89.2 MCH 30 MCHC 33.2 RDW 15.9 Plt Count 99 L MPV 12.2 H Neut % (Auto) 79.6 H Lymph % (Auto) 13.7 L [place] % (Auto) 5.5 Eos % (Auto) 0.6 Baso % (Auto) 0.1 Neut # (Auto) 6.4 Lymph # (Auto) 1.1 L [place] # (Auto) 0.4 Eos # (Auto) 0.1 Baso # (Auto) 0.0 Total Counted 100 Immature Gran % 0.5 Nucleated RBC % 0.0 Immature Gran # 0.04 Segmented Neutrophils 80 Band Neutrophils 1 Lymphocytes 12 L Monocytes 5 Eosinophils 2 Nucleated RBCs # 0.00 Platelet Estimate Decreased Immature Plt Fraction 0.0 Hypochromasia 1+ Microcytosis 1+ Ovalocytes Slight Sodium 137 Potassium 4.0 Chloride 102 Carbon Dioxide 29 Anion Gap 10.0 BUN 18 Creatinine 0.90 GFR Calculation 79 BUN/Creatinine Ratio 20.00 Glucose 202 H POC Glucose 237 H Hemoglobin A1c Calculated Osmolality 280.8 Calcium 8.1 L Magnesium 2.6 H Urine Color Urine Appearance Urine pH Ur Specific [place] Urine Protein Urine Glucose (UA) Urine Ketones Urine Blood Urine Nitrate Urine Bilirubin Urine Urobilinogen Urine Leukocytes Amorphous Crystals Urine Mucus Ur Culture Indicated? Blood Type Antibody Screen Crossmatch Quality Measures - VTE Contraindication to Pharmacological VTE Prophylaxis: Active Bleeding
[2017-08-03] MEDS: metFORMIN 850 MG TABLET PO SCH ×2 (12:07→16:30)
[2017-08-03] MEDS: INSULIN GLARGINE 100 UNIT/ML SUBCUT SCH (12:07)
[2017-08-03] MEDS: LISINOPRIL 2.5 MG TABLET PO SCH ×2 (12:07→20:35)
--- NOTE | 2017-08-03 15:12 | Cardiothoracic Progress Note ---
Assessment and Plan (1) CAD (coronary artery disease) Status: Chronic Assessment and plan: Postoperative day 3 status post redo CABG 2. She is awake alert oriented 3. She is hemodynamically stable, she has been doing very well. She is ambulating around the hallway. Her pain is well controlled and she has no complaints. I will consult hospital medicine for blood glucose control Current Visit: Yes (2) Hx of CABG Status: Chronic Current Visit: Yes Exam (Progress Note) - Constitutional Vitals: Period Temp Pulse Resp BP Sys/Haas Pulse Ox Last 24 Hr 96.5 F-98 F 80-95 16-20 102-152/59-72 93-98 Result/EKG - Labs CBC & BMP: 08/03/17 04:40 08/03/17 04:40 Labs: Laboratory Results - last 24 hr 07/31/17 07/31/17 07/31/17 20:07 21:03 21:59 WBC RBC Hgb Hct MCV MCH MCHC RDW Plt Count MPV Neut % (Auto) Lymph % (Auto) [place] % (Auto) Eos % (Auto) Baso % (Auto) Neut # (Auto) Lymph # (Auto) [place] # (Auto) Eos # (Auto) Baso # (Auto) Total Counted Immature Gran % Nucleated RBC % Immature Gran # Segmented Neutrophils Band Neutrophils Lymphocytes Monocytes Eosinophils Nucleated RBCs # Platelet Estimate Immature Plt Fraction Hypochromasia Microcytosis Ovalocytes Sodium Potassium Chloride Carbon Dioxide Anion Gap BUN Creatinine GFR Calculation BUN/Creatinine Ratio Glucose POC Glucose 366 H 400 H 334 H Hemoglobin A1c Calculated Osmolality Calcium Magnesium Crossmatch 07/31/17 08/01/17 08/01/17 23:15 00:13 00:59 WBC RBC Hgb Hct MCV MCH MCHC RDW Plt Count MPV Neut % (Auto) Lymph % (Auto) [place] % (Auto) Eos % (Auto) Baso % (Auto) Neut # (Auto) Lymph # (Auto) [place] # (Auto) Eos # (Auto) Baso # (Auto) Total Counted Immature Gran % Nucleated RBC % Immature Gran # Segmented Neutrophils Band Neutrophils Lymphocytes Monocytes Eosinophils Nucleated RBCs # Platelet Estimate Immature Plt Fraction Hypochromasia Microcytosis Ovalocytes Sodium Potassium Chloride Carbon Dioxide Anion Gap BUN Creatinine GFR Calculation BUN/Creatinine Ratio Glucose POC Glucose 295 H 292 H 290 H Hemoglobin A1c Calculated Osmolality Calcium Magnesium Crossmatch 08/01/17 08/01/1708/01/17 01:57 02:59 03:58 WBC RBC Hgb Hct MCV MCH MCHC RDW Plt Count MPV Neut % (Auto) Lymph % (Auto) [place] % (Auto) Eos % (Auto) Baso % (Auto) Neut # (Auto) Lymph # (Auto) [place] # (Auto) Eos # (Auto) Baso # (Auto) Total Counted Immature Gran % Nucleated RBC % Immature Gran # Segmented Neutrophils Band Neutrophils Lymphocytes Monocytes Eosinophils Nucleated RBCs # Platelet Estimate Immature Plt Fraction Hypochromasia Microcytosis Ovalocytes Sodium Potassium Chloride Carbon Dioxide Anion Gap BUN Creatinine GFR Calculation BUN/Creatinine Ratio Glucose POC Glucose 207 H 153 H 160 H Hemoglobin A1c Calculated Osmolality Calcium Magnesium Crossmatch 08/01/17 08/01/17 08/02/17 04:59 06:06 04:00 WBC RBC Hgb Hct MCV MCH MCHC RDW Plt Count MPV Neut % (Auto) Lymph % (Auto) [place] % (Auto) Eos % (Auto) Baso % (Auto) Neut # (Auto) Lymph # (Auto) [place] # (Auto) Eos # (Auto) Baso # (Auto) Total Counted Immature Gran % Nucleated RBC % Immature Gran # Segmented Neutrophils Band Neutrophils Lymphocytes Monocytes Eosinophils Nucleated RBCs # Platelet Estimate Immature Plt Fraction Hypochromasia Microcytosis Ovalocytes Sodium Potassium Chloride Carbon Dioxide Anion Gap BUN Creatinine GFR Calculation BUN/Creatinine Ratio Glucose POC Glucose 130 H 119 H Hemoglobin A1c Calculated Osmolality Calcium Magnesium Crossmatch See Detail 08/02/17 08/02/17 08/02/17 12:27 15:54 18:04 WBC RBC Hgb 10.7 L D Hct 31.8 L MCV MCH MCHC RDW Plt Count MPV Neut % (Auto) Lymph % (Auto) [place] % (Auto) Eos % (Auto) Baso % (Auto) Neut # (Auto) Lymph # (Auto) [place] # (Auto) Eos # (Auto) Baso # (Auto) Total Counted Immature Gran % Nucleated RBC % Immature Gran # Segmented Neutrophils Band Neutrophils Lymphocytes Monocytes Eosinophils Nucleated RBCs # Platelet Estimate Immature Plt Fraction Hypochromasia Microcytosis Ovalocytes Sodium Potassium Chloride Carbon Dioxide Anion Gap BUN Creatinine GFR Calculation BUN/Creatinine Ratio Glucose POC Glucose 276 H 356 H Hemoglobin A1c Calculated Osmolality Calcium Magnesium Crossmatch 08/02/17 08/03/17 08/03/17 20:45 04:38 04:40 WBC 8.0 RBC 3.51 L D Hgb 10.4 L Hct 31.3 L MCV 89.2 MCH 30 MCHC 33.2 RDW 15.9 Plt Count 99 L MPV 12.2 H Neut % (Auto) 79.6 H Lymph % (Auto) 13.7 L [place] % (Auto) 5.5 Eos % (Auto) 0.6 Baso % (Auto) 0.1 Neut # (Auto) 6.4 Lymph # (Auto) 1.1 L [place] # (Auto) 0.4 Eos # (Auto) 0.1 Baso # (Auto) 0.0 Total Counted 100 Immature Gran % 0.5 Nucleated RBC % 0.0 Immature Gran # 0.04 Segmented Neutrophils 80 Band Neutrophils 1 Lymphocytes 12 L Monocytes 5 Eosinophils 2 Nucleated RBCs # 0.00 Platelet Estimate Decreased Immature Plt Fraction 0.0 Hypochromasia 1+ Microcytosis 1+ Ovalocytes Slight Sodium Potassium Chloride Carbon Dioxide Anion Gap BUN Creatinine GFR Calculation BUN/Creatinine Ratio Glucose POC Glucose 381 H Hemoglobin A1c 7.5 H Calculated Osmolality Calcium Magnesium Crossmatch 08/03/17 08/03/17 08/03/17 04:40 07:17 11:11 WBC RBC Hgb Hct MCV MCH MCHC RDW Plt Count MPV Neut % (Auto) Lymph % (Auto) [place] % (Auto) Eos % (Auto) Baso % (Auto) Neut # (Auto) Lymph # (Auto) [place] # (Auto) Eos # (Auto) Baso # (Auto) Total Counted Immature Gran % Nucleated RBC % Immature Gran # Segmented Neutrophils Band Neutrophils Lymphocytes Monocytes Eosinophils Nucleated RBCs # Platelet Estimate Immature Plt Fraction Hypochromasia Microcytosis Ovalocytes Sodium 137 Potassium 4.0 Chloride 102 Carbon Dioxide 29 Anion Gap 10.0 BUN 18 Creatinine 0.90 GFR Calculation 79 BUN/Creatinine Ratio 20.00 Glucose 202 H POC Glucose 237 H 329 H Hemoglobin A1c Calculated Osmolality 280.8 Calcium 8.1 L Magnesium 2.6 H Crossmatch Quality Measures - VTE Contraindication to Pharmacological VTE Prophylaxis: Active Bleeding
[2017-08-03] MEDS: SODIUM CHLORIDE 0.45% 1,000 ML IV SCH (18:19)
[2017-08-03] MEDS: ATORVASTATIN 40 MG TABLET PO SCH (20:35)
[2017-08-04] MEDS: ALBUTEROL/IPRATROPIUM 3 ML NEB RESP TX SCH ×3 (02:59→10:55)
[2017-08-04 07:44] LABS: Basophils % 0.1 % (0.0-0.8); Eosinophils # 0.1 10*3/uL (0.0-0.87); Eosinophils % 0.9 % (0.00-10.9); Hematocrit 32.7 VOL% (35.7-47.0); Hemoglobin 10.7 GM/DL (12.0-16.0); Immature Granulocytes % 0.4 %; Immature Granulocytes Absolute 0.04 #; Lymphocytes # 1.4 10*3/uL (1.4-4.0); Lymphocytes % 15.1 % (21.3-54.2); Mean Corpuscular HGB Conc 32.7 GM/DL (32-36); Mean Corpuscular Hemoglobin 30 PG (27-34); Mean Corpuscular Volume 91.3 FL (87-102); Mean Platelet Volume 12.1 FL (9.6-12.0); Monocytes # 0.5 10*3/uL (0.11-0.8); Monocytes % 5.4 % (1.7-12.7); Neutrophils # 7.3 10*3/uL (1.4-7.4); Neutrophils % 78.1 % (38.7-73.9); Platelet Count 132 T/CUMM (130-400); Red Blood Count 3.58 MC/CUMM (3.8-5.5); Red Cell Distribution Width 15.7 % (9.3-17.3); White Blood Count 9.3 T/CUMM (4-12)
--- NOTE | 2017-08-04 07:50 | XRay Report ---
Exam: XR chest 2V Date: 08/04/2017 7:01 AM Indication: Follow-up pleural effusions Comparison: 08/03/2017 Technical:AP portable Findings: Right base pleural effusion atelectatic change with fluid along the minor fissure. Mild cardiomegaly with previous sternotomy. External cardiac leads are present. Mediastinum is otherwise intact. The bony structures are unremarkable. Impression: 1. Low volume right base pleural effusion atelectatic change 2. Cardiomegaly with previous sternotomy 3. Resolution of platelike atelectatic change in the left base PROCEDURE INTERPRETED AT [facility] DEPARTMENT OF RADIOLOGY Final Report Signed by: Dr. Kenny Flores
[2017-08-04] MEDS: INSULIN REGULAR 100 UNIT/ML SUBCUT SCH ×2 (08:12→12:23)
[2017-08-04 08:19] LABS: Calcium 8.6 MG/DL (8.5-10.1); Magnesium 2.4 MG/DL (1.8-2.4); Osmolality,Calculated 277.7 MOS/KG (273-304); Potassium 4.1 MMOL/L (3.5-5.1)
[2017-08-04] MEDS: metFORMIN 850 MG TABLET PO SCH ×2 (08:33→12:23)
[2017-08-04] MEDS: CARVEDILOL 3.125 MG TABLET PO SCH (08:34)
[2017-08-04] MEDS: CLOPIDOGREL 75 MG TABLET PO SCH (08:34)
[2017-08-04] MEDS: LISINOPRIL 2.5 MG TABLET PO SCH (08:34)
[2017-08-04] MEDS: ASPIRIN EC 325 MG TABLET PO SCH (08:34)
[2017-08-04] MEDS: CHLORHEXIDINE 0.12% ORAL RINSE 60 ML BOTTLE SWISH/SPIT SCH (08:34)
[2017-08-04] MEDS: KETOROLAC 15 MG/1 ML VIAL IV PRN (08:39)
--- NOTE | 2017-08-04 11:14 | Discharge Summary ---
Hospital Course - Hospital Course Hospital Course: Patient 6 years status post CABG and she also had multiple stents in the intervening. She had a cath which showed severe left main coronary artery disease and almost completely occluded GUARDADO to LAD anastomosis. She was a candidate for redo CABG. I took her to surgery and a redo CABG was performed. She did really well and progressed appropriately. Postoperative day 1 she was already extubated and getting out of bed. She was hemodynamically stable. She was transferred to telemetry. She was ambulating well on telemetry. Chest tubes and pacing wires were removed. Her pain was well-controlled. She was tolerating her diet. Postoperative day 3 and 4 she continued to regain function well. Postoperative day 4 she was ready for discharge. Diagnosis - Discharge Diagnosis (1) CAD (coronary artery disease) Status: Chronic (2) Hx of CABG Status: Chronic Specialty Discharge - Follow Up or Referrals Discharge Plan - Discharge Data Disposition: Disch To Home/Self Care Condition at Discharge: Stable Discharge Diet: advance to your usual diet Activity: resume usual activities as tolerated Hygiene: no restrictions Driving: no restrictions Contact your physician if you experience:: fever over 101, Difficulty voiding, Redness or swelling, Nausea/Vomiting, Shortness of breath - Discharge Medications New Albuterol/Ipratropium Neb [Duoneb] 3 ml RESP TX RT Q4H Aspirin EC Tab 325 mg PO DAILY #60 tablet Atorvastatin [Lipitor] 40 mg PO BEDTIME tablet Carvedilol [Coreg] 3.125 mg PO BID tablet Clopidogrel [Plavix] 75 mg PO DAILY #0 tablet Lisinopril [Prinivil] 2.5 mg PO BID tablet Continue metFORMIN [Glucophage] 850 mg PO TID W/MEALS Sertraline [Zoloft] 100 mg PO BID Clopidogrel Bisulfate [Plavix] 75 mg PO DAILY Pregabalin [Lyrica] 75 mg PO TID Glipizide [Glipizide ER] 2.5 mg PO DAILY Losartan Potassium 12.5 mg PO DAILY Discontinued Aspirin EC Tab 81 mg PO DAILY Rosuvastatin [Crestor] 20 mg PO DAILY Insulin Glargine [Lantus] 60 units SUBCUT DAILY Magnesium 250 mg PO DAILY - Follow Up or Referral - Forms/Instructions Instructions: Coronary Artery Bypass Graft (DC), Heart Healthy Diet (GEN), Sternal Precautions (GEN) Exam - Constitutional Vitals: Period Temp Pulse Resp BP Sys/Haas Pulse Ox Last 24 Hr 96.3 F-97.9 F 80-96 16-20 118-145/61-79 93-99 Discharge Results Procedures and tests throughout hospitalization: Pending Orders 07/29/17 16:54 Fresh Frozen Plasma Routine Red Blood Cells Leuko Red Routine Single Donor Platelets Routine Type and Screen Routine Labs on day of discharge: Labs from last 24 hours 08/04/17 08/04/17 08/04/17 08:06 07:10 07:10 WBC 9.3 RBC 3.58 L Hgb 10.7 L Hct 32.7 L MCV 91.3 MCH 30 MCHC 32.7 RDW 15.7 Plt Count 132 D MPV 12.1 H Neut % (Auto) 78.1 H Lymph % (Auto) 15.1 L [place] % (Auto) 5.4 Eos % (Auto) 0.9 Baso % (Auto) 0.1 Neut # (Auto) 7.3 Lymph # (Auto) 1.4 [place] # (Auto) 0.5 Eos # (Auto) 0.1 Baso # (Auto) 0.0 Immature Gran % 0.4 Nucleated RBC % 0.0 Immature Gran # 0.04 Nucleated RBCs # 0.00 Immature Plt Fraction 0.0 Sodium 138 Potassium 4.1 Chloride 104 Carbon Dioxide 30 Anion Gap 8.1 BUN 21 H Creatinine 0.80 GFR Calculation 91 BUN/Creatinine Ratio 26.00 H Glucose 92 POC Glucose 80 Calculated Osmolality 277.7 Calcium 8.6 Magnesium 2.4 08/03/17 08/03/17 08/03/17 19:47 16:23 11:11 WBC RBC Hgb Hct MCV MCH MCHC RDW Plt Count MPV Neut % (Auto) Lymph % (Auto) [place] % (Auto) Eos % (Auto) Baso % (Auto) Neut # (Auto) Lymph # (Auto) [place] # (Auto) Eos # (Auto) Baso # (Auto) Immature Gran % Nucleated RBC % Immature Gran # Nucleated RBCs # Immature Plt Fraction Sodium Potassium Chloride Carbon Dioxide Anion Gap BUN Creatinine GFR Calculation BUN/Creatinine Ratio Glucose POC Glucose 225 H 312 H 329 H Calculated Osmolality Calcium Magnesium 08/01/17 08/01/17 08/01/17 06:06 04:59 03:58 WBC RBC Hgb Hct MCV MCH MCHC RDW Plt Count MPV Neut % (Auto) Lymph % (Auto) [place] % (Auto) Eos % (Auto) Baso % (Auto) Neut # (Auto) Lymph # (Auto) [place] # (Auto) Eos # (Auto) Baso # (Auto) Immature Gran % Nucleated RBC % Immature Gran # Nucleated RBCs # Immature Plt Fraction Sodium Potassium Chloride Carbon Dioxide Anion Gap BUN Creatinine GFR Calculation BUN/Creatinine Ratio Glucose POC Glucose 119 H 130 H 160 H Calculated Osmolality Calcium Magnesium 08/01/17 08/01/17 08/01/17 02:59 01:57 00:59 WBC RBC Hgb Hct MCV MCH MCHC RDW Plt Count MPV Neut % (Auto) Lymph % (Auto) [place] % (Auto) Eos % (Auto) Baso % (Auto) Neut # (Auto) Lymph # (Auto) [place] # (Auto) Eos # (Auto) Baso # (Auto) Immature Gran % Nucleated RBC % Immature Gran # Nucleated RBCs # Immature Plt Fraction Sodium Potassium Chloride Carbon Dioxide Anion Gap BUN Creatinine GFR Calculation BUN/Creatinine Ratio Glucose POC Glucose 153 H 207 H 290 H Calculated Osmolality Calcium Magnesium 08/01/17 07/31/17 07/31/17 00:13 23:15 21:59 WBC RBC Hgb Hct MCV MCH MCHC RDW Plt Count MPV Neut % (Auto) Lymph % (Auto) [place] % (Auto) Eos % (Auto) Baso % (Auto) Neut # (Auto) Lymph # (Auto) [place] # (Auto) Eos # (Auto) Baso # (Auto) Immature Gran % Nucleated RBC % Immature Gran # Nucleated RBCs # Immature Plt Fraction Sodium Potassium Chloride Carbon Dioxide Anion Gap BUN Creatinine GFR Calculation BUN/Creatinine Ratio Glucose POC Glucose 292 H 295 H 334 H Calculated Osmolality Calcium Magnesium 07/31/17 07/31/17 21:03 20:07 WBC RBC Hgb Hct MCV MCH MCHC RDW Plt Count MPV Neut % (Auto) Lymph % (Auto) [place] % (Auto) Eos % (Auto) Baso % (Auto) Neut # (Auto) Lymph # (Auto) [place] # (Auto) Eos # (Auto) Baso # (Auto) Immature Gran % Nucleated RBC % Immature Gran # Nucleated RBCs # Immature Plt Fraction Sodium Potassium Chloride Carbon Dioxide Anion Gap BUN Creatinine GFR Calculation BUN/Creatinine Ratio Glucose POC Glucose 400 H 366 H Calculated Osmolality Calcium Magnesium DS: Provider Date of admission: 07/28/17 15:29 Primary care physician: . No PCP Attending physician on admission: Kee iRder MD Consults: 07/28/17 15:29 Consult to Cardiac Rehabilitation [CONS] Routine Reason for Cardiac Rehabilitation: Risk Factor Modification Other Consult Comment: Evaluate and recommend 07/28/17 16:46 Consult to Pastoral Services [CONS] Routine Comment: Pastoral Screen: Critical Surgery Pastoral Screen Source of Request: Patient 07/28/17 17:58 Consult to Anesthesiology [CONS] Routine Consulting Provider: Reason for Anesthesiology: Pre-op Clearance Consult to Cardiac Rehabilitation [CONS] Routine Reason for Cardiac Rehabilitation: Other Consult Comment: Cardiac rehab to evaluate and recommend Consult to Dietitian [CONS] Routine Reason for Dietitian: Other Consult Comment: low salt, low cholesterol, diet Consult to Occupational Therapy [CONS] Routine Reason for Occupational Therapy: Evaluate and Treat Consult to Pastoral Services [CONS] Routine Comment: Emotional support Pastoral Screen: Critical Surgery Pastoral Screen Source of Request: Patient Consult to Physical Therapy [CONS] Routine Reason for Physical Therapy: Evaluate and Treat 07/31/17 18:03 Consult to Occupational Therapy [CONS] Routine Reason for Occupational Therapy: Evaluate and Treat Start Therapy: Tomorrow Consult to Physical Therapy [CONS] Routine Reason for Physical Therapy: Evaluate and Treat Start Therapy: Tomorrow Discharging clinician: Andrey Alvarenga Expected date of discharge: 08/04/17
[2017-08-04] MEDS: INSULIN GLARGINE 100 UNIT/ML SUBCUT SCH (11:26)
[2017-08-04 12:28] VITALS: BP 135/70
--- NOTE | 2017-08-04 13:09 | Cardiology Progress Note ---
Ady Garcia Vanessa RN, am scribing for, and in the presence of, Shefali Gold MD 13:09. Assessment and Plan - Time spent with patient Time spent with patient: Greater than 30 minutes (1) S/P CABG x 2 Status: Acute Assessment and plan: SEE PLAN OF CARE LISTED BELOW. Current Visit: Yes (2) CAD (coronary artery disease) Status: Chronic Assessment and plan: SEE PLAN OF CARE LISTED BELOW. Current Visit: Yes (3) Hypertension Status: Chronic Assessment and plan: SEE PLAN OF CARE LISTED BELOW. Current Visit: Yes (4) Dyslipidemia Status: Chronic Assessment and plan: SEE PLAN OF CARE LISTED BELOW. Current Visit: No (5) Former tobacco use Status: Chronic Assessment and plan: SEE PLAN OF CARE LISTED BELOW. Current Visit: No (6) Hx of CABG Status: Chronic Current Visit: No (7) Depression Status: Chronic Assessment and plan: SEE PLAN OF CARE LISTED BELOW. Current Visit: No (8) Diabetes Status: Chronic Assessment and plan: SEE PLAN OF CARE LISTED BELOW. 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 WAYNE SUMMARY: 47 year old WF, PMHx hypertension, dyslipidemia, diabetes, obesity, family and personal history of CAD. She is a previous smoker and quit after bypass surgery in 2010. Status post CABG [address] Sewell with GUARDADO to LAD, SVG to PDA, and SVG to diagonal. Has since required PCI of the left circumflex with most recent cardiac catheterization March 2014 with widely patent circumflex stent. 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 Cardiac catheterization per Dr. Rider on 07/28 with severe ostial left main stenosis, distal GUARDADO anastomosis, and significant progression of mid circumflex disease and PDA beyond graft insertion site, EF 55%. Patient is now s/p redo CABG x 2 on 08/01 with SVG to LAD, SVG to distal Cx. Overall uneventful postoperative course, and she was transferred from ICU to telemetry unit on 08/02, POD #2. Cardiology is following for medical management. 2016: POD 3# status post redo CABG. Mrs. Rapp is up in bedside chair this morning, appears comfortable. She is using incentive spirometer, and reports she is doing very well with ambulation in hallways. Some chest soreness but no further complaint. Appetite is good. Internal medicine consulted for hyperglycemia, glucose levels 300-400 range. Medications have been adjusted, and this morning, Accu-Chek is 80. Cardiac monitoring demonstrates sinus rhythm, HR averaging 80s. SBP 120-140 mmHg. Labs reviewed. Cell counts unremarkable. Electrolytes and renal function within acceptable range. ASSESSMENT/PLAN: 1. S/P REDO CABG - POD #3 s/p CABG x [address] Donte Duarte. Patient is making satisfactory progress in postoperative course. 2. CAD - appears stable at this time post redo CABG. Continue ASA, Plavix, beta ignacio, statin, AN inhibitor. 3. HYPERTENSION - overall, BP is well controlled. Continue current plan of care. 4. DIABETES -glucose levels have been uncontrolled, greater than 300. Hemoglobin A1c 7.5. Lantus and metformin have both been resumed since with much better glycemic control today. 5. DYSLIPIDEMIA - continue statin. Exam (Progress Note) - Constitutional Vitals: Period Temp Pulse Resp BP Sys/Haas Pulse Ox Last 24 Hr 96.3 F-97.9 F 80-96 16-20 118-145/61-79 93-99 Exam: General appearance: no acute distress, over weight - Head Head exam: Present: normal inspection. Absent: abrasion, contusion - Eye Eye exam: Present: EOMI Pupils: Present: AMY - ENT ENT exam: Present: normal exam - Neck Neck exam: Absent: tenderness. - Respiratory Respiratory exam: Present: clear to auscultation bilaterally. Absent: rales, rhonchi, stridor, wheezes - Cardiovascular Cardiovascular exam: Present: regular rate and rhythm. Absent: carotid bruit, JVD, systolic murmur. Other: sternotomy incision site intact, minimal bruising, and without warmth, redness, drainage. - GI/Abdominal GI/Abdominal exam: Present: normal bowel sounds, soft. Absent: ascites, firm, mass, tenderness - Extremities Exam Extremities exam: Present: normal inspection, normal capillary refill, full ROM. Absent: calf tenderness, edema. Distal pulses present and palpable bilaterally. Other: RLE vein harvest incision site intact without redness, warmth, drainage. - Back Exam Back exam: Present: normal inspection - Neurological Exam Neurological exam: Present: alert, oriented X3. Grossly intact. No resting tremor. - Psychiatric Psychiatric exam: Present: normal affect, normal mood. Absent: agitated, anxious. - Skin Skin exam: Present: normal color, warm, dry. Absent: cyanosis, diaphoretic, erythema, pallor Result/EKG - Labs CBC & BMP: 08/04/17 07:10 08/04/17 07:10 Lab Results: I have reviewed the past 24 hour labs Labs: Laboratory Results - last 24 hr 07/31/17 07/31/17 07/31/17 20:07 21:03 21:59 WBC RBC Hgb Hct MCV MCH MCHC RDW Plt Count MPV Neut % (Auto) Lymph % (Auto) [place] % (Auto) Eos % (Auto) Baso % (Auto) Neut # (Auto) Lymph # (Auto) [place] # (Auto) Eos # (Auto) Baso # (Auto) Immature Gran % Nucleated RBC % Immature Gran # Nucleated RBCs # Immature Plt Fraction Sodium Potassium Chloride Carbon Dioxide Anion Gap BUN Creatinine GFR Calculation BUN/Creatinine Ratio Glucose POC Glucose 366 H 400 H 334 H Hemoglobin A1c Calculated Osmolality Calcium Magnesium 07/31/17 08/01/17 08/01/17 23:15 00:13 00:59 WBC RBC Hgb Hct MCV MCH MCHC RDW Plt Count MPV Neut % (Auto) Lymph % (Auto) [place] % (Auto) Eos % (Auto) Baso % (Auto) Neut # (Auto) Lymph # (Auto) [place] # (Auto) Eos # (Auto) Baso # (Auto) Immature Gran % Nucleated RBC % Immature Gran # Nucleated RBCs # Immature Plt Fraction Sodium Potassium Chloride Carbon Dioxide Anion Gap BUN Creatinine GFR Calculation BUN/Creatinine Ratio Glucose POC Glucose 295 H 292 H 290 H Hemoglobin A1c Calculated Osmolality Calcium Magnesium 08/01/17 08/01/17 08/01/17 01:57 02:59 03:58 WBC RBC Hgb Hct MCV MCH MCHC RDW Plt Count MPV Neut % (Auto) Lymph % (Auto) [place] % (Auto) Eos % (Auto) Baso % (Auto) Neut # (Auto) Lymph # (Auto) [place] # (Auto) Eos # (Auto) Baso # (Auto) Immature Gran % Nucleated RBC % Immature Gran # Nucleated RBCs # Immature Plt Fraction Sodium Potassium Chloride Carbon Dioxide Anion Gap BUN Creatinine GFR Calculation BUN/Creatinine Ratio Glucose POC Glucose 207 H 153 H 160 H Hemoglobin A1c Calculated Osmolality Calcium Magnesium 08/01/17 08/01/17 08/03/17 04:59 06:06 04:38 WBC RBC Hgb Hct MCV MCH MCHC RDW Plt Count MPV Neut % (Auto) Lymph % (Auto) [place] % (Auto) Eos % (Auto) Baso % (Auto) Neut # (Auto) Lymph # (Auto) [place] # (Auto) Eos # (Auto) Baso # (Auto) Immature Gran % Nucleated RBC % Immature Gran # Nucleated RBCs # Immature Plt Fraction Sodium Potassium Chloride Carbon Dioxide Anion Gap BUN Creatinine GFR Calculation BUN/Creatinine Ratio Glucose POC Glucose 130 H 119 H Hemoglobin A1c 7.5 H Calculated Osmolality Calcium Magnesium 08/03/17 08/03/17 08/03/17 11:11 16:23 19:47 WBC RBC Hgb Hct MCV MCH MCHC RDW Plt Count MPV Neut % (Auto) Lymph % (Auto) [place] % (Auto) Eos % (Auto) Baso % (Auto) Neut # (Auto) Lymph # (Auto) [place] # (Auto) Eos # (Auto) Baso # (Auto) Immature Gran % Nucleated RBC % Immature Gran # Nucleated RBCs # Immature Plt Fraction Sodium Potassium Chloride Carbon Dioxide Anion Gap BUN Creatinine GFR Calculation BUN/Creatinine Ratio Glucose POC Glucose 329 H 312 H 225 H Hemoglobin A1c Calculated Osmolality Calcium Magnesium 08/04/17 08/04/17 08/04/17 07:10 07:10 08:06 WBC 9.3 RBC 3.58 L Hgb 10.7 L Hct 32.7 L MCV 91.3 MCH 30 MCHC 32.7 RDW 15.7 Plt Count 132 D MPV 12.1 H Neut % (Auto) 78.1 H Lymph % (Auto) 15.1 L [place] % (Auto) 5.4 Eos % (Auto) 0.9 Baso % (Auto) 0.1 Neut # (Auto) 7.3 Lymph # (Auto) 1.4 [place] # (Auto) 0.5 Eos # (Auto) 0.1 Baso # (Auto) 0.0 Immature Gran % 0.4 Nucleated RBC % 0.0 Immature Gran # 0.04 Nucleated RBCs # 0.00 Immature Plt Fraction 0.0 Sodium 138 Potassium 4.1 Chloride 104 Carbon Dioxide 30 Anion Gap 8.1 BUN 21 H Creatinine 0.80 GFR Calculation 91 BUN/Creatinine Ratio 26.00 H Glucose 92 POC Glucose 80 Hemoglobin A1c Calculated Osmolality 277.7 Calcium 8.6 Magnesium 2.4 - EKG EKG results: interpreted by me, no acute changes Quality Measures - VTE Contraindication to Pharmacological VTE Prophylaxis: Active Bleeding Specialty Discharge - Follow Up or Referrals Follow up with: Andrey Alvarenga [Physician] - 08/17/17 9:15 am (follow up in 3 weeks) Corina Wayne DO [Physician] - 08/14/17 7:40 am IAsif Jennifer, MD, personally performed the services described in this documentation, ascribed by Yamileth Garsia RN in my presence, and it is both accurate and complete .
--- NOTE | 2017-08-04 13:23 | Pathology Report from [facility] ---
[facility] ACCESSION # : [id number] PATIENT NAME : Portia Rapp ORDERING DR : Andrey Alvarenga MD CLINICAL HX: Post op coronary artery bypass (2010) with progression of disease POST-OP DX: Same SPECIMEN INFO: Wires GROSS DESCRIPTION: Received fresh labeled with the patients name and consists of multiple sternal wires. Gross only. DIAGNOSIS FOR PORTIA RAPP: Sternal wires, gross only. COLLECTED DATE: 07/31/2017 [facility] REPORT DATE: 08/04/2017 ELECTRONICALLY SIGNED BY: Casi Osorio M.D. 08/04/2017 - 10:49:41 [facility]TDD
== END 2017-08-04 13:45 | disposition home or self-care (01) | DRG 166 ==
LOC: N.CL 10:19 → EDSTATUS 11:00 → N.ICU 15:24 → N.CVR 07-31 14:33 → N.ICU 08-01 11:41 → N.TELES 08-02 15:03
PROVIDERS: ADMIT Internal Medicine Cardiovascular Disease; ATTEND Internal Medicine Cardiovascular Disease

== ENCOUNTER 2017-08-14 08:26 | Inpatient (IN) ==
[2017-08-14] MEDS ORDERED: ONDANSETRON 4 MG/2 ML VIAL IV PRN ×2 (08:28→09:42)
[2017-08-14] MEDS ORDERED: NITROGLYCERIN SL 0.4 MG TABLET SL PRN ×2 (08:28→09:48)
[2017-08-14] MEDS ORDERED: HYDROcodone/CHLORPHENIRAMINE ER 5 ML UDCUP PO PRN ×2 (08:28→09:42)
[2017-08-14] MEDS ORDERED: ACETAMINOPHEN 325 MG TABLET PO PRN ×2 (08:28→09:42)
[2017-08-14] MEDS ORDERED: ZALEPLON 5 MG CAPSULE PO PRN ×2 (08:28→09:42)
[2017-08-14] MEDS ORDERED: ENOXAPARIN 40 MG/0.4 ML SYRINGE SUBCUT SCH (08:30)
[2017-08-14] MEDS ORDERED: DEXTROSE 50% 25 GM/50 ML VIAL IV PRN (08:35)
[2017-08-14] MEDS ORDERED: GLUCAGON 1 MG VIAL IM PRN ×2 (08:35→09:42)
[2017-08-14] MEDS ORDERED: ATORVASTATIN 80 MG TABLET PO SCH ×2 (09:00→10:00)
[2017-08-14] MEDS ORDERED: CARVEDILOL 3.125 MG TABLET PO SCH (09:00)
[2017-08-14] MEDS ORDERED: LOSARTAN 25 MG TABLET PO SCH ×2 (09:00→10:00)
[2017-08-14] MEDS ORDERED: CLOPIDOGREL 75 MG TABLET PO SCH ×2 (09:00→10:00)
[2017-08-14] MEDS ORDERED: SERTRALINE 100 MG TABLET PO SCH ×2 (09:00→10:00)
[2017-08-14] MEDS ORDERED: ASPIRIN EC 325 MG TABLET PO SCH ×2 (09:00→10:00)
[2017-08-14] MEDS ORDERED: DEXTROSE 50% 25 GM/50 ML SYRINGE IV PRN (09:42)
--- NOTE | 2017-08-14 10:31 | EKG Report ---
Stationary ECG Study [facility] Test Date: 08/14/2017 10:29:21 AM Pat Name: PORTIA LONDONO Department: Room: 289 Gender: F Community Organization Aide: SHAE : 1970 Requested by: Corina Riggs Order Number: [id number] Reading MD: XUAN WOOTEN Intervals [place] Rate: 89 P: -11 TN: 158 QRS: 18 QRSD: 75 T: 70 QT: 368 QTc: 415 Interpretive Statements SINUS RHYTHM ST DEVIATION AND MODERATE T-WAVE ABNORMALITY, CONSIDER ANTEROLATERAL ISCHEMIA Electronically Signed On 08-14-17 17:11:27 CDT by XUAN WOOTEN [email or web address]
[2017-08-14 10:39] LABS: Basophils % 0.2 % (0.0-0.8); Eosinophils # 0.2 10*3/uL (0.0-0.87); Eosinophils % 1.6 % (0.00-10.9); Hematocrit 32.3 VOL% (35.7-47.0); Hemoglobin 10.5 GM/DL (12.0-16.0); Immature Granulocytes % 0.6 %; Immature Granulocytes Absolute 0.06 #; Lymphocytes # 1.4 10*3/uL (1.4-4.0); Lymphocytes % 14.2 % (21.3-54.2); Mean Corpuscular HGB Conc 32.5 GM/DL (32-36); Mean Corpuscular Hemoglobin 29 PG (27-34); Mean Platelet Volume 11.7 FL (9.6-12.0); Monocytes # 0.3 10*3/uL (0.11-0.8); Monocytes % 2.7 % (1.7-12.7); Neutrophils # 8.2 10*3/uL (1.4-7.4); Neutrophils % 80.7 % (38.7-73.9); Platelet Count 264 T/CUMM (130-400); Red Blood Count 3.59 MC/CUMM (3.8-5.5); Red Cell Distribution Width 14.4 % (9.3-17.3); White Blood Count 10.1 T/CUMM (4-12)
[2017-08-14] MEDS ORDERED: ALBUTEROL 0.63 MG/3 ML NEB RESP TX SCH ×2 (11:00)
--- NOTE | 2017-08-14 11:16 | XRay Report ---
XR chest 2V Indication: Shortness of breath Comparison: 04 August 2017 Findings: The heart and mediastinum are stable in size and configuration with cardiac surgery changes. The pulmonary vascularity is normal in caliber. Right lower lung density and effusion are present similar to previous exam. No other lung infiltrates, effusions, pneumothorax or other abnormality is demonstrated. Impression: Right lower lung density and small effusion similar to previous study. No other acute findings. PROCEDURE INTERPRETED AT [facility] DEPARTMENT OF RADIOLOGY Final Report Signed by: Dr. Shekhar Magdaleno
[2017-08-14 11:29] LABS: Calcium 8.9 MG/DL (8.5-10.1); Osmolality,Calculated 276.7 MOS/KG (273-304); Potassium 4.1 MMOL/L (3.5-5.1)
[2017-08-14] MEDS ORDERED: INSULIN REGULAR 100 UNIT/ML SUBCUT SCH (11:30)
[2017-08-14 11:41] LABS: Magnesium 1.4 MG/DL (1.8-2.4); Thyroid Stimulating Hormone 6.06 uIU/ml (0.358-3.74)
[2017-08-14] MEDS ORDERED: FUROSEMIDE 40 MG/4 ML VIAL IV ONE (11:48)
[2017-08-14] MEDS: ENOXAPARIN 40 MG/0.4 ML SYRINGE SUBCUT SCH (12:18)
[2017-08-14] MEDS: LEVOFLOXACIN INJ 750 MG in PREMIX 1 EACH IV SCH (12:21)
[2017-08-14] MEDS: INSULIN REGULAR 100 UNIT/ML SUBCUT SCH ×3 (12:39→21:12)
--- NOTE | 2017-08-14 13:58 | Pulmonology Consult Note ---
Assessment and Plan (1) Pleural effusion, right Status: Acute Assessment and plan: The differential diagnosis for this would be congestive heart failure, pulmonary embolism, or post pericardiotomy. Ideally would like to get a right thoracentesis done if there is enough free fluid to tap. Patient has been empirically given Lasix and antibiotics. Will obtain right lateral decubitus film. Unusual for a right-sided post pericardiotomy syndrome but that is a possibility. Current Visit: Yes (2) Diabetes Status: Chronic Assessment and plan: Continue home medications. Watch renal function on metformin Current Visit: No (3) Hx of CABG Status: Chronic Assessment and plan: She had a redo coronary bypass operation 2 weeks ago. She has had multiple stents. Normal LV function on last evaluation. May be worthwhile to repeat echo. Her BNP is elevated Current Visit: No History of Present Illness Chief complaint: Shortness of breath History of present illness: Ms. Rapp is a 47 year old female who had coronary bypass surgery here 2 weeks ago. It was a redo procedure for severe left main disease as well as GUARDADO a partial occlusion. She apparently did well postop. She tells me now that she is having a cough and shortness of breath about the day she went home. She comes back in now after seeing Dr. Salguero in the clinic. She has increased shortness of breath and a cough with almost every breath. She is having some right pleuritic pain. No angina. No fever and not coughing up anything. She had SPECT prior to her surgery showing ejection fraction of 70%. Her BNP is elevated this admission in the 400s. She has had a little swelling in her legs and some soreness at the site of her venous graft from right leg. She is a former smoker quit about 7 years ago when she had her first coronary bypass surgery. She has a 30 year history of diabetes on both pills and shots. She also has hypertension. She is on metformin losartan and lisinopril. She takes aspirin and Plavix in the way of anticoagulants. Dr. Bree Gao is her primary doctor. Home Medications Medication Instructions Recorded Confirmed Type Glipizide [Glipizide ER] 2.5 mg PO DAILY 04/30/15 08/14/17 History Pregabalin [Lyrica] 75 mg PO TID 04/30/15 08/14/17 History Sertraline [Zoloft] 100 mg PO BID 04/30/15 08/14/17 History metFORMIN [Glucophage] 850 mg PO TID W/MEALS 04/30/15 08/14/17 History Losartan Potassium 12.5 mg PO DAILY 07/28/17 08/14/17 History Aspirin EC Tab 325 mg PO DAILY #60 tablet 08/04/17 08/14/17 Rx Atorvastatin [Lipitor] 40 mg PO BEDTIME tablet 08/04/17 08/14/17 Rx Carvedilol [Coreg] 3.125 mg PO BID tablet 08/04/17 08/14/17 Rx Clopidogrel [Plavix] 75 mg PO DAILY #0 tablet 08/04/17 08/14/17 Rx Lisinopril [Prinivil] 2.5 mg PO BID tablet 08/04/17 08/14/17 Rx Allergies Allergy/AdvReac Type Severity Reaction Status Date / Time No Known Allergies Allergy Verified 08/08/17 02:27 12 point system: reviewed and no additional remarkable complaints except as stated - Cardiovascular Cardiovascular: Present: dyspnea, dyspnea on exertion, edema - Respiratory Respiratory: Present: cough, dyspnea, dyspnea on exertion, pain on inspiration Exam (Pulmonay) H&P - Constitutional Vitals: Period Temp Pulse Resp BP Sys/Haas Pulse Ox Last 24 Hr 97.6 F-98.2 F 88-94 16-20 128-138/59-89 95-98 Exam: Vital signs are normal. Afebrile. Pupils react to light. Throat is clear. Neck supple no bruits. Chest reveals some decreased breath sounds at the right base and dullness there. I do not hear rales or wheezes. Heart normal rate and rhythm no murmurs. The sternal scar is healing. Abdomen soft nontender no masses. Bowel sounds present. Extremities no clubbing cyanosis. Trace of edema. Mild tenderness along the site of the right leg donor graft. Medical,Surgical,& Family Hx - Medical History Cardio: History of: CAD, [place] (approx > than 7 years ago), Cardiovascular Problems No history of: Aneurysm, Cardiac Dysrhythmia, Cerebrovascular Disease, Congenital Heart Disease, CHF, Hypertension, Pacemaker, PVD, Valvular Heart Disease Psychological: History of: Depression ("after open heart surgery" describes as "better") Neurology: History of: Peripheral Neuropathy HEENT: History of: Eye Problem ("bleeders", wears glasses) Endocrine: History of: Diabetes Mellitus (IDDM), Dyslipidemia No history of: Thyroid Disorder Rheumatology: No history of;: Fibromyalgia, Gout, Psoriasis, Sjogrens Renal: No history of: Renal Failure Genitourinary: No history of: Bladder Problem Gastrointestinal: History of: GI Problems (states "chronic loose stools") No history of: GERD, Gastrointestinal Bleed, Hepatitis Musculoskeletal: History of: Back/Neck Problems, Degenerative Disk Disease ( "lower back"), Herniated Disk (2-3 lower back"), Musculoskeletal Problems Hematology: No history of: Blood Transfusion Reaction Reproductive: History of: Reproductive Problems ("went throught mindi[ause at age 15") No history of: Abnormal Pap Smear Other: History of: Skin Problems ("skin cancer left chest" removed approx 1-2 months ago) No history of: Anesthesia Reactions, Anaphylaxis, Cancer, Eczema, HIV, Malignant Hyperthermia, MRSA - Surgical History Cardiac Surgeries: Sugical HX of: Cardiac Catheterization (1st one approx 2009, 2nd cath approx 2011 with stent placement x 2), Cardiac Surgery (CABG) Patient Denies: Femoral-Popliteal Bypass Graft, Carotid Endarterectomy, Internal Defibrillator, Vascular Access Devices Thoracic Surgeries: Patient denies;: Organ Transplant, Lobectomy Neurologic Surgeries: Patient denies: Neurologic Surgery HEENT Surgeries: Patient denies: Carotid Endarterectomy, Eye Surgery, Tonsilectomy & Adenoidectomy Abdominal Surgeries: Surgical HX of: Colonoscopy (3-4 years ago), EGD (3-4 years ago) Patient denies: Gastric Bypass Surgery, Splenectomy Reproductive Surgeries: Patient denies;: Genitourinary Surgery, Gynecologic Surgery - Family History Family History: Reports;: Family Cancer (maternal grandmother), Family Diabetes (maternal grandmother), Family Heart Disease (father at age 45 of [place]), Family Hypertension (Father's side) Denies;: Family Psychiatric Problems, Family Stroke - Social History Smoking Status: Never smoker Frequency of Alcohol Use: None Type of Drug Use: None Results - Labs CBC & BMP: 08/14/17 10:13 08/14/17 10:13 Lab Results: I have reviewed the past 24 hour labs - Diagnostic Findings Procedure: Chest x-ray: image reviewed by me (Right pleural effusion with fluid in the minor fissure. Actually looks a little bit better than x-ray from 1 week ago just prior to discharge.)
--- NOTE | 2017-08-14 14:58 | Ultrasound Report ---
US venous doppler LE BI Indication: Leg pain after CABG. BILATERAL LOWER EXTREMITY VENOUS ULTRASOUND Comparison: None Findings: Graded grayscale compression, color Doppler and pulsed Doppler ultrasound evaluation of the venous structures performed. Normal compressibility, augmentation and color saturation is present within bilateral common femoral, superficial femoral, popliteal and proximal greater saphenous veins. Impression: No evidence of DVT either lower extremity. PROCEDURE INTERPRETED AT [facility] DEPARTMENT OF RADIOLOGY Final Report Signed by: Star Tay M.D.
--- NOTE | 2017-08-14 14:59 | XRay Report ---
XR chest lateral decubitus RT Indication: Right pleural effusion. Chest one view: Right lateral decubitus view the chest shows the right pleural effusion to be free flowing, layering lateral within the pleural space. Quantity is small to moderate. Impression: Free-flowing [id number] right pleural effusion. PROCEDURE INTERPRETED AT [facility] DEPARTMENT OF RADIOLOGY Final Report Signed by: Star Tay M.D.
[2017-08-14] MEDS: ALBUTEROL/IPRATROPIUM 3 ML NEB RESP TX SCH ×3 (15:21→23:46)
[2017-08-14] MEDS ORDERED: MAGNESIUM SULF RIDER 4 GM in PREMIX 1 EACH IV ONE (15:49)
--- NOTE | 2017-08-14 15:49 | Hospitalist Consult Note ---
<Phill Alanis - Last Filed: 08/14/17 15:37> Assessment and Plan - Time spent with patient Time spent with patient: Less than 30 minutes (1) Pleural effusion, right Status: Acute Assessment and plan: Chest x-ray today shows mild to moderate right pleural effusion. Pulmonology is following. Dr. Milner is considering a right thoracentesis if there is enough free fluid to tap. Continue IV Lasix and antibiotic coverage. I agree with lateral decubitus x-ray. Current Visit: Yes (2) S/P CABG x 2 Status: Acute Assessment and plan: Patient is to be status post double bypass and 7 years status post triple bypass. Echocardiogram has been ordered. I agree. Current Visit: No (3) Hypertension Status: Chronic Assessment and plan: Continue home medications. Current Visit: No (4) Diabetes Status: Chronic Assessment and plan: Serum glucose in the 140s. Continue home medications and sliding scale insulin as ordered. Current Visit: No History of Present Illness - Data of Consult Consult date: 08/14/17 Requesting Physician: Andrey Alvarenga Primary care physician: Bree Gao - Consult Narrative Reason for consult: Medical Management History of present illness: Ms. Rapp is a 47 year old female with a past medical history significant for hypertension, CAD, diabetes mellitus, CABG 2 who was seen in the hospital status post second CABG further evaluation of increased shortness of breath. Patient reports that she did well postop, however she is now having shortness of breath with onset 10 days ago. Patient was seen by Dr. Riggs in clinic today as a hospital follow-up. She was then admitted to Dr. Alvarenga. We were consulted to assist with medical management of this patient during this hospital visit. On exam, the patient is resting comfortably but noticeably short of breath and reports having difficulty speaking. She does appear to be a bit breathy and has intermittent coughing during conversation. Lab work shows BNP of 442, serum glucose 140, magnesium 1.4, TSH third generation 6.060. Chest x-ray shows mild to moderate right pleural effusion. Venous Doppler shows no evidence of DVT in either lower extremity. Outside of postsurgical pain , she denies any headache, chest pain, nausea vomiting, abdominal pain, edema. She is also being followed by pulmonology. This case has been discussed with Dr. Collazo, consulting physician, and we are happy to follow along as necessary. Thank you for the consult. CC: Andrey Alvarenga - Home Medications and Allergies Home Medications: Home Medications Medication Instructions Recorded Confirmed Type Glipizide [Glipizide ER] 2.5 mg PO DAILY 04/30/15 08/14/17 History Pregabalin [Lyrica] 75 mg PO TID 04/30/15 08/14/17 History Sertraline [Zoloft] 100 mg PO BID 04/30/15 08/14/17 History metFORMIN [Glucophage] 850 mg PO TID W/MEALS 04/30/15 08/14/17 History Losartan Potassium 12.5 mg PO DAILY 07/28/17 08/14/17 History Aspirin EC Tab 325 mg PO DAILY #60 tablet 08/04/17 08/14/17 Rx Atorvastatin [Lipitor] 40 mg PO BEDTIME tablet 08/04/17 08/14/17 Rx Carvedilol [Coreg] 3.125 mg PO BID tablet 08/04/17 08/14/17 Rx Clopidogrel [Plavix] 75 mg PO DAILY #0 tablet 08/04/17 08/14/17 Rx Lisinopril [Prinivil] 2.5 mg PO BID tablet 08/04/17 08/14/17 Rx Allergies/Adverse Reactions: Allergies Allergy/AdvReac Type Severity Reaction Status Date / Time No Known Allergies Allergy Verified 08/08/17 02:27 Medical,Surgical,& Family Hx - Medical History Cardio: History of: CAD, [place] (approx > than 7 years ago), Cardiovascular Problems No history of: Aneurysm, Cardiac Dysrhythmia, Cerebrovascular Disease, Congenital Heart Disease, CHF, Hypertension, Pacemaker, PVD, Valvular Heart Disease Psychological: History of: Depression ("after open heart surgery" describes as "better") Neurology: History of: Peripheral Neuropathy HEENT: History of: Eye Problem ("bleeders", wears glasses) Endocrine: History of: Diabetes Mellitus (IDDM), Dyslipidemia No history of: Thyroid Disorder Rheumatology: No history of;: Fibromyalgia, Gout, Psoriasis, Sjogrens Renal: No history of: Renal Failure Genitourinary: No history of: Bladder Problem Gastrointestinal: History of: GI Problems (states "chronic loose stools") No history of: GERD, Gastrointestinal Bleed, Hepatitis Musculoskeletal: History of: Back/Neck Problems, Degenerative Disk Disease ( "lower back"), Herniated Disk (2-3 lower back"), Musculoskeletal Problems Hematology: No history of: Blood Transfusion Reaction Reproductive: History of: Reproductive Problems ("went throught mindi[ause at age 15") No history of: Abnormal Pap Smear Other: History of: Skin Problems ("skin cancer left chest" removed approx 1-2 months ago) No history of: Anesthesia Reactions, Anaphylaxis, Cancer, Eczema, HIV, Malignant Hyperthermia, MRSA - Surgical History Cardiac Surgeries: Sugical HX of: Cardiac Catheterization (1st one approx 2009, 2nd cath approx 2011 with stent placement x 2), Cardiac Surgery (CABG) Patient Denies: Femoral-Popliteal Bypass Graft, Carotid Endarterectomy, Internal Defibrillator, Vascular Access Devices Thoracic Surgeries: Patient denies;: Organ Transplant, Lobectomy Neurologic Surgeries: Patient denies: Neurologic Surgery HEENT Surgeries: Patient denies: Carotid Endarterectomy, Eye Surgery, Tonsilectomy & Adenoidectomy Abdominal Surgeries: Surgical HX of: Colonoscopy (3-4 years ago), EGD (3-4 years ago) Patient denies: Gastric Bypass Surgery, Splenectomy Reproductive Surgeries: Patient denies;: Genitourinary Surgery, Gynecologic Surgery - Family History Family History: Reports;: Family Cancer (maternal grandmother), Family Diabetes (maternal grandmother), Family Heart Disease (father at age 45 of [place]), Family Hypertension (Father's side) Denies;: Family Psychiatric Problems, Family Stroke - Social History Smoking Status: Never smoker Frequency of Alcohol Use: None Type of Drug Use: None Marital Status: Single Lives With:: Alone Functional capacity: independent ambulation - Constitutional Constitutional: Absent: fever(s) - Cardiovascular Cardiovascular: Present: dyspnea. Absent: chest pain at rest, chest pain with activity, edema - Respiratory Respiratory: Present: cough, dyspnea, pain on inspiration. Absent: wheezing Exam - Constitutional Vitals: Period Temp Pulse Resp BP Sys/Haas Pulse Ox Last 24 Hr 97.6 F-98.2 F 85-94 16-20 128-138/59-89 95-99 Exam: General: No acute distress Heart: RRR; no gallops, murmurs, rubs, clicks Lungs: CTA bilaterally, decreased breath sounds on the right; no wheezes, rales , rhonchi Abdomen: NBS, soft, nontender, no masses Extremities: no cyanosis, edema, clubbing Neuro: AAOx3 Results - Labs CBC & BMP: 08/14/17 10:13 08/14/17 10:13 Lab Results: I have reviewed the past 24 hour labs - Diagnostic Findings Procedure: Chest x-ray: image reviewed by me, report reviewed by me (Mild to moderate right pleural effusion), Ultrasound: image reviewed by me, report reviewed by me (BLE venous Doppler: No DVT) <Moni Collazo - Last Filed: 08/14/17 17:55> Assessment and Plan (1) Pleural effusion, right Status: Acute Assessment and plan: agree with above Current Visit: Yes (2) S/P CABG x 2 Status: Acute Current Visit: No (3) Diabetes Status: Chronic Assessment and plan: agree with above Current Visit: No (4) Hypertension Status: Chronic Assessment and plan: controlled Current Visit: No History of Present Illness - Consult Narrative History of present illness: Ms. Rapp is a 47 year old female seen and examined. Not sure of reason consulted. Pulmonary issues managed by Dr. Milner. Patient has volume overload common after cabg. I replaced her mag and tsh abnormal but free t4 okay. BS stable. Anemia stable. HTN controlled. Patient has not seen Dr. Abigail Duarte yet but he has ordered lasix. Will order bmp with mag in am. Will sign off CC: Andrey Colette Exam - Constitutional Vitals: Period Temp Pulse Resp BP Sys/Haas Pulse Ox Last 24 Hr 97.3 F-98.2 F 85-97 16-20 110-138/56-89 95-99 Results - Labs CBC & BMP: 08/14/17 10:13 08/14/17 10:13
[2017-08-14] MEDS: metFORMIN 850 MG TABLET PO SCH (16:29)
[2017-08-14] MEDS ORDERED: metFORMIN 850 MG TABLET PO SCH (17:00)
--- NOTE | 2017-08-14 18:10 | ECHO Report ---
Atiya Rapp 08/14/2017 Exam Date: 15:14 Referring Physician: veronica Lowery Technologist: RASHEEDA KIM Age: 47 Ht (in): 62 Wt (lb): 166 FExam Location: [facility] Gender: Echo [id number]: Other forms of dyspnea, Shortness ofIndications:breath, Rt. pleural effusion, DM, S/P CABG two weeks ago BP: 128 / 59 HR: 95 SinusRhythm: Very technically difficult studyTechnical Quality: IMPRESSIONS Normal left ventricular size, without hypertrophy. The posterior segments appear to be hypokinetic, the remaining segments have normal systolic thickening. Estimated left ventricular ejection fraction 55%. Grade 2 diastolic dysfunction. Mildly dilated right ventricle, with normal systolic function and normal pulmonary pressure. Mild right atrial enlargement. Borderline pulmonary hypertension. MEASUREMENTS (Male / Female) Normal Values 2D ECHO LV Diastolic Diameter PLAX 3.9 cm 4.2 - 5.9 / 3.9 - 5.3 cm LV Systolic Diameter PLAX 2.7 cm LV Fractional Shortening PLAX 32.3 % IVS Diastolic Thickness 0.7 cm 0.6 - 1.0 / 0.6 - 0.9 cm LVPW Diastolic Thickness 0.8 cm 0.6 - 1.0 / 0.6 - 0.9 cm RV Internal Dim ED PLAX 2.9 cm Aortic Root Diameter 2.8 cm LA Systolic Diameter LX 3.7 cm 3.0 - 4.0 / 2.7 - 3.8 cm DOPPLER TR Peak Velocity 259.0 cm/s TR Peak Gradient 26.8 mmHg FINDINGS Left Ventricle Normal left ventricular size, without hypertrophy. The posterior segments appear to be hypokinetic, the remaining segments have normal systolic thickening. Estimated left ventricular ejection fraction 55%. Grade 2 diastolic dysfunction. Right Ventricle The right ventricle is mildly dilated, with normal systolic function. Right Atrium The right atrium is mildly dilated. Left Atrium The left atrium is normal in size. Mitral Valve Morphologically normal mitral valve without significant stenosis or prolapse. There is trace mitral regurgitation. Aortic Valve Morphologically normal aortic valve without significant sclerosis or stenosis. There is no aortic regurgitation. Tricuspid Valve Tricuspid valve not well visualized. Trace to mild tricuspid valve regurgitation. Tricuspid regurgitation velocities suggest a PAP of 37 mmHg. Pulmonic Valve Morphologically normal pulmonic valve without significant stenosis. There is no pulmonic regurgitation. Pericardium Normal pericardium without effusion. Aorta Normal ascending aorta dimension. Hernan Escalera (Electronically Signed) 14 August 2017 Final Date: 18:09
[2017-08-14] MEDS ORDERED: PREGABALIN 75 MG CAPSULE PO SCH ×2 (21:00)
[2017-08-14] MEDS: CARVEDILOL 3.125 MG TABLET PO SCH (21:12)
[2017-08-15] MEDS: ALBUTEROL/IPRATROPIUM 3 ML NEB RESP TX SCH ×3 (04:22→11:47)
[2017-08-15] MEDS: metFORMIN 850 MG TABLET PO SCH (08:16)
[2017-08-15] MEDS: CARVEDILOL 3.125 MG TABLET PO SCH (08:16)
[2017-08-15] MEDS: INSULIN REGULAR 100 UNIT/ML SUBCUT SCH ×2 (08:17→12:23)
--- NOTE | 2017-08-15 08:20 | EKG Report ---
Stationary ECG Study [facility] Test Date: 08/15/2017 8:18:47 AM Pat Name: PORTIA LONDONO Department: Room: 289 Gender: F Traffic Checker: SHAE : 1970 Requested by: Corina Riggs Order Number: [id number] Reading MD: XUAN WOOTEN Intervals [place] Rate: 90 P: -1 WI: 160 QRS: 24 QRSD: 84 T: 170 QT: 380 QTc: 428 Interpretive Statements SINUS RHYTHM LOW QRS VOLTAGE IN PRECORDIAL LEADS ST DEVIATION AND MODERATE T-WAVE ABNORMALITY, CONSIDER ANTEROLATERAL ISCHEMIA Electronically Signed On 08-15-17 11:22:47 CDT by XUAN WOOTEN [email or web address]
[2017-08-15] MEDS ORDERED: predniSONE 20 MG TABLET PO SCH (09:00)
--- NOTE | 2017-08-15 09:50 | Pulmonology Progress Note ---
Pulmonary - PN: Subj Interval history: This 47-year-old white female came in 2 weeks after coronary bypass surgery with a cough that was persistent. Primarily feels like something tickling in her throat. I discussed the case with Dr. Alvarenga yesterday. Her cough sounds most like an AN inhibitor cough. We decided to stop the lisinopril and the ARB. It will take a few days to see if her cough response. In addition she had a right lateral decubitus x-ray done which showed a 2.7 cm layer of fluid. This is just enough to safely tap. I did a right thoracentesis on the this morning which is dictated separately. The fluid is grossly hemorrhagic nonclotting and likely related to the surgery. Not what I would expect with either an infection or congestive heart failure. We drained 800 mL. This may indeed help her cough as well. Exam (Progress Note) - Constitutional Vitals: Period Temp Pulse Resp BP Sys/Haas Pulse Ox Last 24 Hr 96.5 F-98.6 F 80-107 16-20 98-138/54-89 93-99 Exam: Alert afebrile. Vital signs normal. Pupils react to light. Throat is clear. Neck supple no bruits. Chest reveals decreased breath sounds at the right base with some dullness. Heart normal rate and rhythm no murmurs. Sternal wound healing well. Abdomen soft nontender no masses. Extremities no clubbing cyanosis or edema. Calves nontender Results - Labs CBC & BMP: 08/14/17 10:13 08/14/17 10:13 Lab Results: I have reviewed the past 24 hour labs - Diagnostic Findings Procedure: Chest x-ray: image reviewed by me (Right lateral decubitus x-ray shows 2.7 cm layering at the lower end of the right chest.) Assessment and Plan (1) Pleural effusion, right Status: Acute Assessment and plan: The differential diagnosis for this would be congestive heart failure, pulmonary embolism, or post pericardiotomy. Ideally would like to get a right thoracentesis done if there is enough free fluid to tap. Patient has been empirically given Lasix and antibiotics. Will obtain right lateral decubitus film. Unusual for a right-sided post pericardiotomy syndrome but that is a possibility. 08/15/2017 the pleural fluid was grossly bloody. This will be a post pericardiotomy type fluid. I think just grinding it should take care of it. She is on empiric antibiotics and diuretics which I do not think will be necessary long-term. Current Visit: Yes (2) Diabetes Status: Chronic Assessment and plan: Continue home medications. Watch renal function on metformin 08/15/2017 glucoses look good. Current Visit: No (3) Hx of CABG Status: Chronic Assessment and plan: She had a redo coronary bypass operation 2 weeks ago. She has had multiple stents. Normal LV function on last evaluation. May be worthwhile to repeat echo. Her BNP is elevated 08/15/2017 the right pleural effusion is grossly hemorrhagic nonclotting likely associated with the surgery itself. Current Visit: No
--- NOTE | 2017-08-15 09:54 | Operative Note ---
Date of procedure: 08/15/17 (Right thoracentesis) Pre-op diagnosis: Right pleural effusion following coronary bypass surgery Post-op diagnosis: same (Pleural fluid was hemorrhagic indicating related to the surgery itself) Procedure: After an appropriate timeout to be sure we were dealing with Atiya Rapp, the patient was seated on the side of the bed. I percussed the right chest found an interspace one below the top of the dullness. That area was marked. We used Betadine prep. Back was draped. 1% lidocaine was infused into the intercostal space. We used the needle and catheter provided on the arrow tray. It was advanced into the right pleural space and we obtained hemorrhagic fluid. It did not clot. A total of 800 mL was removed. This was sent for studies. The catheter was removed. Chest x-ray is pending. No immediate complications. Patient tolerated the procedure well. Anesthesia: local Surgeon / Physician: Jose Raul Milner Estimated blood loss: other (Removed 800 mL of grossly hemorrhagic fluid but did not appear to be bleeding. Fluid did not clot.) Specimens: other (800 mL of hemorrhagic pleural fluid sent for studies. Please see orders.) Condition: stable Disposition: floor (Chest x-ray pending postthoracentesis.) Results - Labs CBC & BMP: 08/14/17 10:13 08/14/17 10:13 Discharge Plan - Discharge Medications No Action metFORMIN [Glucophage] 850 mg PO TID W/MEALS Sertraline [Zoloft] 100 mg PO BID Pregabalin [Lyrica] 75 mg PO TID Glipizide [Glipizide ER] 2.5 mg PO DAILY Losartan Potassium 12.5 mg PO DAILY Aspirin EC Tab 325 mg PO DAILY #60 tablet Atorvastatin [Lipitor] 40 mg PO BEDTIME tablet Carvedilol [Coreg] 3.125 mg PO BID tablet Clopidogrel [Plavix] 75 mg PO DAILY #0 tablet Lisinopril [Prinivil] 2.5 mg PO BID tablet - Follow Up or Referral - Forms/Instructions
[2017-08-15 10:17] LABS: Basophils % 0.2 % (0.0-0.8); Eosinophils # 0.1 10*3/uL (0.0-0.87); Hematocrit 30.7 VOL% (35.7-47.0); Immature Granulocytes % 1.1 %; Lymphocytes # 0.7 10*3/uL (1.4-4.0); Lymphocytes % 8.5 % (21.3-54.2); Mean Corpuscular HGB Conc 32.6 GM/DL (32-36); Mean Corpuscular Hemoglobin 29 PG (27-34); Mean Corpuscular Volume 90.3 FL (87-102); Mean Platelet Volume 11.3 FL (9.6-12.0); Monocytes # 0.2 10*3/uL (0.11-0.8); Monocytes % 1.9 % (1.7-12.7); Neutrophils # 7.6 10*3/uL (1.4-7.4); Neutrophils % 87.3 % (38.7-73.9); Platelet Count 230 T/CUMM (130-400); Red Cell Distribution Width 14.5 % (9.3-17.3); White Blood Count 8.8 T/CUMM (4-12)
--- NOTE | 2017-08-15 11:35 | XRay Report ---
Portable chest. Indication: Shortness of breath. The heart is normal in size. Post median sternotomy. The pulmonary vasculature is normal. The left lung is clear. There is mild atelectasis or scarring involving the right midlung field. No pneumothorax. No pleural effusion. Impression: Scarring or atelectasis at the right midlung field. Otherwise unremarkable. PROCEDURE INTERPRETED AT [facility] DEPARTMENT OF RADIOLOGY Final Report Signed by: Dr. Yecenia Bryant
[2017-08-15 11:43] VITALS: BP 107/58
[2017-08-15 11:44] LABS: Calcium 8.6 MG/DL (8.5-10.1); Magnesium 2.3 MG/DL (1.8-2.4); Osmolality,Calculated 285.8 MOS/KG (273-304); Potassium 4.5 MMOL/L (3.5-5.1)
--- NOTE | 2017-08-15 11:53 | Discharge Summary ---
Hospital Course - Hospital Course Hospital Course: The patient was admitted from Dr. Salguero's clinic due to cough during talking. I evaluated the patient and x-ray showed that she has small to moderate amount of right pleural effusion. I consulted Dr. Milner and we discussed stopping her AN inhibitors and angiotensin receptor blockers. Dr. Milner also tapped around 7 700 -800 cc of serosanguineous fluid from the right pleural cavity. The patient felt significantly better on hospital day 1 and she was ready for discharge. - Time spent with patient Time with patient DS: Greater than 30 minutes Discharge Plan - Discharge Data Disposition: Disch To Home/Self Care Condition at Discharge: Stable Discharge Diet: advance to your usual diet Activity: resume usual activities as tolerated Hygiene: no restrictions Weight Bearing at Discharge: full weight bearing Contact your physician if you experience:: fever over 101, Difficulty voiding, Nausea/Vomiting, Shortness of breath, Bleeding - Discharge Medications New Acetaminophen Tab [Tylenol Tab] 325 mg PO Q4H PRN tablet PRN Reason: fever, headache/body aches Albuterol/Ipratropium Neb [Duoneb] 3 ml RESP TX RT Q4H Atorvastatin [Lipitor] 80 mg PO DAILY tablet Carvedilol [Coreg] 3.125 mg PO BID tablet Clopidogrel [Plavix] 75 mg PO DAILY tablet glipiZIDE XL [Glucotrol Xl] 2.5 mg PO DAILY W/BREAKFAST tablet Nitroglycerin Sl Tab [Nitrostat] 0.4 mg SL Q5M PRN tablet PRN Reason: Chest Pain Pregabalin [Lyrica] 75 mg PO BEDTIME capsule Sertraline [Zoloft] 100 mg PO DAILY tablet Zaleplon [Sonata] 5 mg PO BEDTIME PRN capsule PRN Reason: Insomnia metFORMIN [Glucophage] 850 mg PO BID W/MEALS tablet Continue metFORMIN [Glucophage] 850 mg PO TID W/MEALS Sertraline [Zoloft] 100 mg PO BID Pregabalin [Lyrica] 75 mg PO TID Glipizide [Glipizide ER] 2.5 mg PO DAILY Aspirin EC Tab 325 mg PO DAILY #60 tablet Carvedilol [Coreg] 3.125 mg PO BID tablet Clopidogrel [Plavix] 75 mg PO DAILY #0 tablet Discontinued Losartan Potassium 12.5 mg PO DAILY Atorvastatin [Lipitor] 40 mg PO BEDTIME tablet Lisinopril [Prinivil] 2.5 mg PO BID tablet - Follow Up or Referral - Forms/Instructions Exam - Constitutional Vitals: Period Temp Pulse Resp BP Sys/Haas Pulse Ox Last 24 Hr 96.5 F-98.6 F 79-107 16-20 79-128/44-89 92-99 Discharge Results Procedures and tests throughout hospitalization: Pending Orders 08/15/17 09:55 AFB Culture/Smears Routine Body Fluid Cult and Gram Stain Routine Cell Count w Diff, Pleural Fld Routine Glucose,Pleural Fluid Routine LDH,Body Fluid Routine Total Protein,Body Fluid Routine Cytology Request Routine Labs on day of discharge: Labs from last 24 hours 08/15/17 08/15/17 08/15/17 10:12 10:12 07:38 WBC 8.8 RBC 3.40 L Hgb 10.0 L Hct 30.7 L MCV 90.3 MCH 29 MCHC 32.6 RDW 14.5 Plt Count 230 MPV 11.3 Neut % (Auto) 87.3 H Lymph % (Auto) 8.5 L [place] % (Auto) 1.9 Eos % (Auto) 1.0 Baso % (Auto) 0.2 Neut # (Auto) 7.6 H Lymph # (Auto) 0.7 L [place] # (Auto) 0.2 Eos # (Auto) 0.1 Baso # (Auto) 0.0 Immature Gran % 1.1 Nucleated RBC % 0.0 Immature Gran # 0.10 Nucleated RBCs # 0.00 Immature Plt Fraction 0.0 Sodium 137 Potassium 4.5 Chloride 104 Carbon Dioxide 23 Anion Gap 14.5 BUN 22 H Creatinine 1.40 H GFR Calculation 45 BUN/Creatinine Ratio 15.00 Glucose 270 H POC Glucose 177 H Calculated Osmolality 285.8 Calcium 8.6 Magnesium 2.3 Troponin I B-Natriuretic Peptide 08/14/17 08/14/17 08/14/17 19:22 16:31 16:28 WBC RBC Hgb Hct MCV MCH MCHC RDW Plt Count MPV Neut % (Auto) Lymph % (Auto) [place] % (Auto) Eos % (Auto) Baso % (Auto) Neut # (Auto) Lymph # (Auto) [place] # (Auto) Eos # (Auto) Baso # (Auto) Immature Gran % Nucleated RBC % Immature Gran # Nucleated RBCs # Immature Plt Fraction Sodium Potassium Chloride Carbon Dioxide Anion Gap BUN Creatinine GFR Calculation BUN/Creatinine Ratio Glucose POC Glucose 158 H 165 H Calculated Osmolality Calcium Magnesium Troponin I 0.019 B-Natriuretic Peptide 08/14/17 08/14/17 08/14/17 13:19 12:00 11:49 WBC RBC Hgb Hct MCV MCH MCHC RDW Plt Count MPV Neut % (Auto) Lymph % (Auto) [place] % (Auto) Eos % (Auto) Baso % (Auto) Neut # (Auto) Lymph # (Auto) [place] # (Auto) Eos # (Auto) Baso # (Auto) Immature Gran % Nucleated RBC % Immature Gran # Nucleated RBCs # Immature Plt Fraction Sodium Potassium Chloride Carbon Dioxide Anion Gap BUN Creatinine GFR Calculation BUN/Creatinine Ratio Glucose POC Glucose 142 H Calculated Osmolality Calcium Magnesium Troponin I 0.021 B-Natriuretic Peptide 442 H DS: Provider Date of admission: 08/14/17 08:28 Primary care physician: LOUIE SOLIS NP Attending physician on admission: Andrey Alvarenga Consults: 08/14/17 11:45 Consult to Physician [CONS] Routine Comment: Consulting Provider: Jose Raul Milner When should Consulting Provider be notified: Now Consult to Specialist Group: Hospitalist When should Consulting Provider be notified: Now Person Notified: Celine Date Notified: 08/14/17 Time Notified: 11:50 08/14/17 11:47 Consult to Physician [CONS] Routine Comment: Consulting Provider: Person Notified: GHAZAL Date Notified: 08/14/17 Time Notified: 11:52 Discharging clinician: Andrey Alvarenga Expected date of discharge: 08/15/17
[2017-08-15] MEDS: ENOXAPARIN 40 MG/0.4 ML SYRINGE SUBCUT SCH (12:23)
[2017-08-15] MEDS: LEVOFLOXACIN INJ 750 MG in PREMIX 1 EACH IV SCH (12:23)
[2017-08-15 13:06] LABS: Eosinophils,Pleural Fluid 3 %; Lymphocytes,Pleural Fluid 83 %; Monocytes,Pleural Fluid 3 %; Neutrophils,Pleural Fluid 11 %
[2017-08-15 13:07] LABS: RBC,Pleural Fluid > 100000 T/CUMM
--- NOTE | 2017-08-20 11:17 | Physician Query Form ---
CLICK EDIT DOCUMENT TO SELECT QUERY ANSWER --> OK --> SIGN Celine Tariq RN, CCDS Certified Clinical Marketing Forecaster W) [phone] (f) [phone] [email or web address]: Make your selection(s) from the choices in EACH section by typing an "x" and enter comments in the comment section. Please use your independent medical judgment in providing your response. This request does not imply that any particular answer is desired or expected. CLINICAL INDICATORS: (Providers should not edit this section) "The fluid is grossly hemorrhagic nonclotting and likely related to the surgery. Not what I would expect with either an infection or congestive heart failure"---------Patient later had a thoracentesis done As the attending MD can you please clarify if the Pleural Effusion is ? Please clarify the following: (x ) The above is an inherent, integral or routinely potential/expected occurrence of surgery (not a complication) ( ) The above was an inadvertent, unintended, iatrogenic, or unexpected occurrence of surgery (complication) ( ) The above is a complication but not due to the surgery, specify cause: ( ) Other, please specify: ( ) Clinically unable to determine COMMENTS: PLEASE ALSO DOCUMENT RESPONSE IN PROGRESS NOTES AND/OR DISCHARGE SUMMARY Use of terms such as suspected, likely, or probable (associated with a specific diagnosis that is being evaluated, monitored, or treated as if it exists) are acceptable and can be restated in the discharge summary if not ruled out. MTDD
== END 2017-08-15 12:57 | disposition home or self-care (01) | DRG 143 ==
LOC: N.ADMINP 09:08 → N.TELEN 09:34
PROVIDERS: ADMIT Thoracic Surgery (Cardiothoracic Vascular Surgery); ATTEND Thoracic Surgery (Cardiothoracic Vascular Surgery)

== ENCOUNTER 2018-01-18 14:54 | Inpatient (IN) ==
[2018-01-18] MEDS ORDERED: ASPIRIN 325 MG TABLET PO STA (17:32)
[2018-01-18] MEDS ORDERED: ONDANSETRON 4 MG/2 ML VIAL IV STA (17:32)
[2018-01-18] MEDS ORDERED: FUROSEMIDE 100 MG/10 ML VIAL IV STA (17:32)
[2018-01-18] MEDS ORDERED: MORPHINE 2 MG/1 ML SYRINGE IV STA (17:32)
[2018-01-18] MEDS ORDERED: cefTRIAXone 1,000 MG in SODIUM CHLORIDE 0.9% 100 ML IV STA (17:32)
[2018-01-18 17:43] LABS: Basophils % 0.3 % (0.0-0.8); Eosinophils % 0.4 % (0.00-10.9); Hematocrit 37.1 VOL% (35.7-47.0); Hemoglobin 12.4 GM/DL (12.0-16.0); Immature Granulocytes % 0.9 %; Lymphocytes % 16.5 % (21.3-54.2); Mean Corpuscular HGB Conc 33.4 GM/DL (32-36); Mean Corpuscular Hemoglobin 29 PG (27-34); Mean Corpuscular Volume 87.5 FL (87-102); Mean Platelet Volume 12.7 FL (9.6-12.0); Monocytes % 5.7 % (1.7-12.7); Neutrophils % 76.2 % (38.7-73.9); Platelet Count 150 T/CUMM (130-400); Red Blood Count 4.24 MC/CUMM (3.8-5.5); Red Cell Distribution Width 13.2 % (9.3-17.3)
[2018-01-18 17:44] LABS: Immature Granulocytes Absolute 0.06 #; Lymphocytes # 1.2 10*3/uL (1.4-4.0); Monocytes # 0.4 10*3/uL (0.11-0.8); Neutrophils # 5.3 10*3/uL (1.4-7.4)
[2018-01-18 17:55] LABS: PT Patient Result 10.3 SECS
[2018-01-18 17:59] LABS: Alanine Aminotransferase 29 U/L (13-56); Alkaline Phosphatase 213 U/L (45-117); Aspartate Amino Transferase 81 U/L (0-37); Blood Urea Nitrogen 16 MG/DL (7-18); Calcium 9.2 MG/DL (8.5-10.1); Glucose 499 MG/DL (74-106); Osmolality,Calculated 271.6 MOS/KG (273-304); Potassium 4.8 MMOL/L (3.5-5.1); Sodium 124 MMOL/L (136-145); Total Protein 8.5 G/DL (6.4-8.3); Troponin I Only < 0.015 NG/ML (0.00-0.045)
[2018-01-18] MEDS ORDERED: ALBUTEROL 2.5 MG/3 ML NEB RESP TX SCH (18:00)
[2018-01-18] MEDS ORDERED: cefTRIAXone 1,000 MG VIAL ONE (18:01)
[2018-01-18] MEDS ORDERED: ASPIRIN 325 MG TABLET ONE (18:01)
[2018-01-18] MEDS ORDERED: ONDANSETRON 4 MG/2 ML VIAL ONE (18:01)
[2018-01-18] MEDS ORDERED: FUROSEMIDE 20 MG/2 ML VIAL ONE (18:01)
[2018-01-18] MEDS ORDERED: MORPHINE 2 MG/1 ML SYRINGE ONE (18:01)
[2018-01-18 18:09] LABS: Apearance,Urine CLEAR (Clear); Bacteria,Urine Occasional /HPF (Few); Bilirubin,Urine Negative (Negative); Blood, Urine Small mg/dL (Negative); Glucose,Urine (UA) >=500 mg/dL (Negative); Ketones,Urine 20 mg/dL (Negative); Mucus,Urine Occasional /LPF (Occasional); Nitrite,Urine Negative (Negative); Protein,Urine 30 MG/DL; RBC,Urine <1 /HPF (0-4); Squamous Epithelial Cell,Urine Occasional /HPF (0-10); Urine Color Yellow (Yellow); Urine Specific Gravity 1.028 (1.001-1.035); Urine Urobilinogen < 2.0 EU/DL (0.2-1.0); WBC,Urine <1 /HPF (0-6)
[2018-01-18 18:32] LABS: Lactic Acid 1.1 MMOL/L (0.4-2.0)
[2018-01-18] MEDS ORDERED: INSULIN REGULAR 100 UNIT/ML IV STA (18:37)
[2018-01-18] MEDS ORDERED: INSULIN REGULAR 100 UNIT/ML ONE (19:12)
[2018-01-18] MEDS ORDERED: NITROGLYCERIN SL 0.4 MG TABLET SL PRN (19:24)
[2018-01-18] MEDS ORDERED: ACETAMINOPHEN 325 MG TABLET PO PRN (19:24)
[2018-01-18] MEDS ORDERED: ASPIRIN EC 325 MG TABLET PO SCH (21:00)
[2018-01-18] MEDS ORDERED: MORPHINE 2 MG/1 ML SYRINGE IV PRN (21:01)
[2018-01-18] MEDS ORDERED: LEVOFLOXACIN INJ 750 MG in PREMIX 1 EACH IV SCH (21:01)
[2018-01-18] MEDS ORDERED: guaiFENesin/CODEINE 5 ML LIQUID PO PRN (21:01)
[2018-01-18] MEDS ORDERED: GLUCAGON 1 MG VIAL IM PRN (21:01)
[2018-01-18] MEDS ORDERED: ONDANSETRON 4 MG/2 ML VIAL IV PRN (21:01)
[2018-01-18] MEDS ORDERED: ALBUTEROL 2.5 MG/3 ML NEB RESP TX PRN (21:01)
[2018-01-18] MEDS ORDERED: ZALEPLON 5 MG CAPSULE PO PRN (21:01)
[2018-01-18] MEDS ORDERED: INSULIN GLARGINE 100 UNIT/ML SUBCUT SCH (21:01)
[2018-01-18] MEDS ORDERED: ENOXAPARIN 40 MG/0.4 ML SYRINGE SUBCUT SCH (21:01)
[2018-01-18] MEDS ORDERED: DEXTROSE 50% 25 GM/50 ML VIAL IV PRN (21:01)
[2018-01-18] MEDS: INSULIN REGULAR 100 UNIT/ML SUBCUT SCH (22:16)
[2018-01-18] MEDS: CEFEPIME 1,000 MG in SYRINGE 1 EACH IV SCH (22:18)
[2018-01-18] MEDS: CARVEDILOL 3.125 MG TABLET PO SCH (22:18)
[2018-01-19] MEDS: ALBUTEROL/IPRATROPIUM 3 ML NEB RESP TX SCH ×3 (00:25→13:21)
[2018-01-19] MEDS: SODIUM CHLORIDE 0.9% 1,000 ML IV SCH ×2 (02:02→13:26)
[2018-01-19] MEDS: methylPREDNISolone SOD SUC 40 MG/1 ML VIAL IV SCH ×2 (02:02→08:40)
[2018-01-19] MEDS: INSULIN REGULAR 100 UNIT/ML SUBCUT SCH ×4 (02:55→13:24)
[2018-01-19 05:44] LABS: Basophils % 0.2 % (0.0-0.8); Eosinophils % 0.5 % (0.00-10.9); Hematocrit 33.9 VOL% (35.7-47.0); Hemoglobin 11.6 GM/DL (12.0-16.0); Immature Granulocytes % 0.6 %; Immature Granulocytes Absolute 0.04 #; Lymphocytes # 0.7 10*3/uL (1.4-4.0); Lymphocytes % 11.3 % (21.3-54.2); Mean Corpuscular HGB Conc 34.2 GM/DL (32-36); Mean Corpuscular Hemoglobin 29 PG (27-34); Mean Corpuscular Volume 85.8 FL (87-102); Mean Platelet Volume 11.9 FL (9.6-12.0); Monocytes # 0.2 10*3/uL (0.11-0.8); Monocytes % 2.7 % (1.7-12.7); Neutrophils # 5.3 10*3/uL (1.4-7.4); Neutrophils % 84.7 % (38.7-73.9); Platelet Count 160 T/CUMM (130-400); Red Blood Count 3.95 MC/CUMM (3.8-5.5); Red Cell Distribution Width 13.2 % (9.3-17.3); White Blood Count 6.2 T/CUMM (4-12)
[2018-01-19 06:13] LABS: Blood Urea Nitrogen 18 MG/DL (7-18); Calcium 8.8 MG/DL (8.5-10.1); Glucose 233 MG/DL (74-106); Osmolality,Calculated 274.4 MOS/KG (273-304); Potassium 4.1 MMOL/L (3.5-5.1); Sodium 133 MMOL/L (136-145); Troponin I Only < 0.015 NG/ML (0.00-0.045)
[2018-01-19] MEDS: CARVEDILOL 3.125 MG TABLET PO SCH (08:40)
[2018-01-19] MEDS: CEFEPIME 1,000 MG in SYRINGE 1 EACH IV SCH (08:43)
[2018-01-19] MEDS ORDERED: PANTOPRAZOLE 40 MG TABLET PO SCH (09:00)
[2018-01-19 16:05] VITALS: BP 142/64
== END 2018-01-19 16:03 | disposition home or self-care (01) | DRG 139 ==
LOC: N.ED 14:54 → N.EDINP 19:22 → N.2E 19:54
PROVIDERS: ADMIT Internal Medicine Geriatric Medicine; ATTEND Internal Medicine Geriatric Medicine

== ENCOUNTER 2022-01-15 15:44 | Observation (INO) ==
[2022-01-15] MEDS ORDERED: METOCLOPRAMIDE 10 MG/2 ML VIAL IV STA (16:55)
[2022-01-15] MEDS ORDERED: PANTOPRAZOLE 40 MG VIAL IV STA (16:55)
[2022-01-15] MEDS ORDERED: ONDANSETRON 4 MG/2 ML VIAL IV STA (16:55)
[2022-01-15] MEDS ORDERED: SODIUM CHLORIDE 0.9% 1,000 ML IV STA ×2 (16:55→19:53)
[2022-01-15] MEDS ORDERED: METOCLOPRAMIDE 10 MG/2 ML VIAL ONE (16:57)
[2022-01-15 17:27] LABS: Basophils % 0.3 % (0.0-0.8); Eosinophils % 0.6 % (0.00-10.9); Hematocrit 38.3 VOL% (35.7-47.0); Hemoglobin 13.1 GM/DL (12.0-16.0); Immature Granulocytes % 0.2 %; Immature Granulocytes Absolute 0.01 #; Lymphocytes # 1.1 10*3/uL (1.4-4.0); Lymphocytes % 17.4 % (21.3-54.2); Mean Corpuscular HGB Conc 34.2 GM/DL (32-36); Mean Corpuscular Volume 86.7 FL (87-102); Mean Platelet Volume 10.9 FL (9.6-12.0); Monocytes % 4.7 % (1.7-12.7); Neutrophils % 76.8 % (38.7-73.9); Platelet Count 214 T/CUMM (130-400); Red Blood Count 4.42 MC/CUMM (3.8-5.5); Red Cell Distribution Width 12.2 % (9.3-17.3); White Blood Count 6.3 T/CUMM (4-12)
[2022-01-15 17:31] LABS: Alanine Aminotransferase 32 U/L (13-56); Albumin 3.8 G/DL (3.4-5.0); Alkaline Phosphatase 126 U/L (45-117); Aspartate Amino Transferase 28 U/L (0-37); Blood Urea Nitrogen 5 MG/DL (7-18); Calcium 9.4 MG/DL (8.5-10.1); Carbon Dioxide 28 MMOL/L (21-32); Estimated Glom Filtration Rate 99 ML/MIN; Glucose 231 MG/DL (74-106); Osmolality,Calculated 273.1 MOS/KG (273-304); Potassium 3.7 MMOL/L (3.5-5.1); Sodium 135 MMOL/L (136-145); Total Protein 8.5 G/DL (6.4-8.2)
[2022-01-15 18:29] LABS: Bacteria,Urine Occasional /HPF (Few); Bilirubin,Urine Negative (Negative); Blood, Urine Negative (Negative); Glucose,Urine (UA) 50 mg/dL (Negative); Hyaline Casts,Urine 1 /LPF (0-3); Ketones,Urine 20 mg/dL (Negative); Mucus,Urine Occasional /LPF (Occasional); Nitrite,Urine Negative (Negative); Protein,Urine 100 MG/DL; RBC,Urine 2 /HPF (0-4); Squamous Epithelial Cell,Urine Occasional /HPF (0-10); Urine Appearance CLEAR (Clear); Urine Color Yellow (Yellow); Urine Specific Gravity 1.013 (1.001-1.035); Urine Urobilinogen < 2.0 EU/DL (<2.0)
[2022-01-15] MEDS ORDERED: PROMETHAZINE INJ 25 MG in SODIUM CHLORIDE 0.9% 50 ML IV STA (19:53)
[2022-01-15] MEDS ORDERED: PROMETHAZINE 25 MG/1 ML VIAL ONE (19:55)
[2022-01-15] MEDS ORDERED: ONDANSETRON 4 MG/2 ML VIAL IV PRN (20:42)
[2022-01-15] MEDS ORDERED: ACETAMINOPHEN 325 MG TABLET PO PRN (20:42)
[2022-01-15] MEDS: PIPERACILLIN/TAZOBACTAM 3,375 MG in SODIUM CHLORIDE 0.9% 100 ML IV SCH (21:08)
[2022-01-15 21:52] LABS: Barbiturates Screen,Urine Negative (Negative); Benzodiazepines Screen,Urine Negative (Negative); Cannabinoid Screen,Urine Negative (Negative); Opiate Screen,Urine Negative (Negative); Phencyclidine Screen,Urine Negative (Negative)
[2022-01-15] MEDS ORDERED: PROMETHAZINE INJ 25 MG in SODIUM CHLORIDE 0.9% 50 ML IV PRN (22:23)
[2022-01-16] MEDS: SODIUM CHLORIDE 0.9% 1,000 ML IV SCH ×3 (03:25→21:12)
[2022-01-16] MEDS: LACTATED RINGERS 1,000 ML IV SCH ×2 (03:32→11:16)
[2022-01-16] MEDS: PIPERACILLIN/TAZOBACTAM 3,375 MG in SODIUM CHLORIDE 0.9% 100 ML IV SCH ×3 (05:18→21:10)
[2022-01-16 06:25] LABS: Basophils % 0.3 % (0.0-0.8); Eosinophils # 0.1 10*3/uL (0.0-0.87); Eosinophils % 1.3 % (0.00-10.9); Hemoglobin 11.6 GM/DL (12.0-16.0); Immature Granulocytes % 0.6 %; Immature Granulocytes Absolute 0.04 #; Lymphocytes # 2.2 10*3/uL (1.4-4.0); Lymphocytes % 35.3 % (21.3-54.2); Mean Corpuscular HGB Conc 33.1 GM/DL (32-36); Mean Corpuscular Volume 88.8 FL (87-102); Mean Platelet Volume 10.8 FL (9.6-12.0); Monocytes % 6.4 % (1.7-12.7); Neutrophils % 56.1 % (38.7-73.9); Platelet Count 198 T/CUMM (130-400); Red Blood Count 3.94 MC/CUMM (3.8-5.5); Red Cell Distribution Width 12.3 % (9.3-17.3); White Blood Count 6.3 T/CUMM (4-12)
[2022-01-16 07:12] LABS: Risk Ratio 4.68; VLDL Cholesterol 45.4 MG/DL
[2022-01-16 07:20] LABS: Albumin 3.1 G/DL (3.4-5.0); Calcium 8.5 MG/DL (8.5-10.1); Osmolality,Calculated 279.3 MOS/KG (273-304); Total Protein 7.4 G/DL (6.4-8.2)
[2022-01-16 07:33] LABS: Bilirubin,Total 0.5 MG/DL (0.20-1.00)
[2022-01-16] MEDS ORDERED: PANTOPRAZOLE 40 MG TABLET PO SCH (09:00)
[2022-01-16] MEDS ORDERED: INFLUENZA VIRUS VACCINE 0.5 ML SYRINGE IM ONE (09:00)
[2022-01-16] MEDS: PANTOPRAZOLE 40 MG VIAL IV SCH (10:19)
[2022-01-16] MEDS: INSULIN REGULAR 100 UNIT/ML SUBCUT SCH ×4 (10:35→21:11)
[2022-01-16] MEDS ORDERED: POTASSIUM CHLORIDE 20 MEQ TABLET PO ONE (12:55)
[2022-01-16] MEDS ORDERED: ONDANSETRON 4 MG/2 ML VIAL IV PRN (14:02)
[2022-01-16] MEDS ORDERED: HYDROmorphone 2 MG/1 ML VIAL IV PRN ×2 (14:02)
[2022-01-16] MEDS: PREGABALIN 100 MG CAPSULE PO SCH ×2 (14:32→21:11)
[2022-01-16] MEDS: ASPIRIN EC 325 MG TABLET PO SCH (21:11)
[2022-01-16] MEDS: SERTRALINE 100 MG TABLET PO SCH (21:11)
[2022-01-16] MEDS: INSULIN GLARGINE 100 UNIT/ML SUBCUT SCH (21:11)
[2022-01-17] MEDS: PIPERACILLIN/TAZOBACTAM 3,375 MG in SODIUM CHLORIDE 0.9% 100 ML IV SCH ×2 (05:15→14:56)
[2022-01-17 06:14] LABS: Basophils % 0.2 % (0.0-0.8); Eosinophils # 0.1 10*3/uL (0.0-0.87); Eosinophils % 1.7 % (0.00-10.9); Hematocrit 34.4 VOL% (35.7-47.0); Hemoglobin 11.3 GM/DL (12.0-16.0); Immature Granulocytes % 0.4 %; Immature Granulocytes Absolute 0.02 #; Lymphocytes # 1.8 10*3/uL (1.4-4.0); Mean Corpuscular HGB Conc 32.8 GM/DL (32-36); Mean Corpuscular Volume 90.3 FL (87-102); Mean Platelet Volume 10.8 FL (9.6-12.0); Monocytes % 7.4 % (1.7-12.7); Neutrophils % 51.3 % (38.7-73.9); Platelet Count 162 T/CUMM (130-400); Red Blood Count 3.81 MC/CUMM (3.8-5.5); Red Cell Distribution Width 12.4 % (9.3-17.3); White Blood Count 4.6 T/CUMM (4-12)
[2022-01-17] MEDS: SODIUM CHLORIDE 0.9% 1,000 ML IV SCH ×3 (06:17→21:10)
[2022-01-17 06:36] LABS: Eosinophils 2 % (0-10); Hypochromia Slight; Lymphocytes 41 % (20-55); Microcytosis Slight; Platelet Estimate Adequate; Segmented Neutrophils 54 % (50-85); Total Cells Counted 100
[2022-01-17 06:37] LABS: Albumin 2.8 G/DL (3.4-5.0); Bilirubin,Total 0.5 MG/DL (0.20-1.00); Calcium 8.7 MG/DL (8.5-10.1); Osmolality,Calculated 278.3 MOS/KG (273-304); Potassium 3.4 MMOL/L (3.5-5.1); Total Protein 6.9 G/DL (6.4-8.2)
[2022-01-17] MEDS: PREGABALIN 100 MG CAPSULE PO SCH ×4 (08:06→21:02)
[2022-01-17] MEDS ORDERED: propofoL 200 MG/20 ML VIAL IV ONE (08:23)
[2022-01-17] MEDS ORDERED: LIDOCAINE 2% 5 ML VIAL ONE (08:23)
[2022-01-17] MEDS ORDERED: ONDANSETRON 4 MG/2 ML VIAL ONE (08:23)
[2022-01-17] MEDS ORDERED: ROCURONIUM 50 MG/5 ML VIAL IV ONE (08:23)
[2022-01-17] MEDS ORDERED: MIDAZOLAM 2 MG/2 ML VIAL ONE (08:24)
[2022-01-17] MEDS ORDERED: fentaNYL 100 MCG/2 ML VIAL ONE ×2 (08:24→10:24)
[2022-01-17] MEDS ORDERED: BUPIVACAINE MPF 0.25% 30 ML VIAL ONE (08:25)
[2022-01-17] MEDS ORDERED: LIDOCAINE 1%/EPI INJ 20 ML VIAL ONE (08:25)
[2022-01-17] MEDS ORDERED: TISSUE ADHESIVE 1 EACH APPLICATOR TOP ONE (08:25)
[2022-01-17] MEDS ORDERED: ACETAMINOPHEN INJ 1,000 MG/100 ML VIAL IV ONE (08:51)
[2022-01-17] MEDS ORDERED: FAMOTIDINE 20 MG/2 ML VIAL IV ONE (08:51)
[2022-01-17] MEDS: INSULIN REGULAR 100 UNIT/ML SUBCUT SCH ×4 (09:15→21:10)
[2022-01-17] MEDS ORDERED: ETOMIDATE 40 MG/20 ML VIAL IV ONE (09:23)
[2022-01-17] MEDS ORDERED: ePHEDrine 50 MG/ML VIAL ONE (09:26)
[2022-01-17] MEDS ORDERED: ESMOLOL 100 MG/10 ML VIAL IV ONE (09:53)
[2022-01-17] MEDS ORDERED: SUGAMMADEX 200 MG/2 ML VIAL IV ONE (10:01)
[2022-01-17] MEDS ORDERED: SEVOFLURANE 1 UNIT/15 MINUTE INH ONE (10:38)
[2022-01-17] MEDS ORDERED: BISACODYL 5 MG TABLET PO PRN (13:14)
[2022-01-17] MEDS ORDERED: ALBUTEROL/IPRATROPIUM 3 ML NEB RESP TX PRN (13:14)
[2022-01-17] MEDS: SERTRALINE 100 MG TABLET PO SCH ×2 (14:57→21:02)
[2022-01-17] MEDS: PANTOPRAZOLE 40 MG VIAL IV SCH (14:59)
[2022-01-17 15:08] LABS: Hematocrit 35.3 VOL% (35.7-47.0); Hemoglobin 11.6 GM/DL (12.0-16.0)
[2022-01-17] MEDS ORDERED: POTASSIUM CHLORIDE 20 MEQ TABLET PO ONE (15:16)
[2022-01-17] MEDS ORDERED: MAGNESIUM SULF INJ 3 GM in SODIUM CHLORIDE 0.9% 100 ML IV ONE (16:00)
[2022-01-17] MEDS: ASPIRIN EC 325 MG TABLET PO SCH (21:02)
[2022-01-17] MEDS: INSULIN GLARGINE 100 UNIT/ML SUBCUT SCH (21:03)
[2022-01-17 23:33] LABS: Hemoglobin 10.5 GM/DL (12.0-16.0)
[2022-01-18 05:11] LABS: Basophils % 0.2 % (0.0-0.8); Eosinophils # 0.1 10*3/uL (0.0-0.87); Eosinophils % 1.3 % (0.00-10.9); Hematocrit 29.7 VOL% (35.7-47.0); Hemoglobin 9.7 GM/DL (12.0-16.0); Immature Granulocytes % 0.4 %; Immature Granulocytes Absolute 0.02 #; Lymphocytes # 1.3 10*3/uL (1.4-4.0); Lymphocytes % 24.3 % (21.3-54.2); Mean Corpuscular HGB Conc 32.7 GM/DL (32-36); Mean Corpuscular Volume 90.3 FL (87-102); Mean Platelet Volume 11.1 FL (9.6-12.0); Monocytes % 5.4 % (1.7-12.7); Neutrophils % 68.4 % (38.7-73.9); Platelet Count 151 T/CUMM (130-400); Red Blood Count 3.29 MC/CUMM (3.8-5.5); Red Cell Distribution Width 12.5 % (9.3-17.3); White Blood Count 5.4 T/CUMM (4-12)
[2022-01-18 05:36] LABS: Albumin 2.5 G/DL (3.4-5.0); Bilirubin,Total 0.5 MG/DL (0.20-1.00); Calcium 8.2 MG/DL (8.5-10.1); Osmolality,Calculated 279.4 MOS/KG (273-304); Potassium 3.4 MMOL/L (3.5-5.1)
[2022-01-18] MEDS: SERTRALINE 100 MG TABLET PO SCH (08:33)
[2022-01-18] MEDS: INSULIN REGULAR 100 UNIT/ML SUBCUT SCH (08:34)
[2022-01-18] MEDS: PREGABALIN 100 MG CAPSULE PO SCH (08:34)
[2022-01-18] MEDS: PANTOPRAZOLE 40 MG VIAL IV SCH (08:37)
[2022-01-18] MEDS: SODIUM CHLORIDE 0.9% 1,000 ML IV SCH (08:37)
[2022-01-18 11:48] VITALS: BP 108/45
== END 2022-01-18 12:02 | disposition home or self-care (01) ==
LOC: N.ED 15:44 → N.EDINP 15:44 → N.TELEN 01-16 02:13
PROVIDERS: ADMIT Surgery; ATTEND Surgery
PROC: LAPCHOL (2022-01-17 09:02)